=== PATIENT | male | born 2000 | race African-American/Black ===

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

== ENCOUNTER 2020-12-30 16:08 | Inpatient (IN) | payer SELFPAY ==
[2020-12-30] VITALS (13 sets, daily range): BP systolic 166–233; BP diastolic 119–163; PULSE 63–97; RESP 18–24; TEMP 36.8–37.3; O2SAT 100; BMI 33.7; BMI 33.2
--- NOTE | 2020-12-30 17:29 | EKG12_ITS ---
Test Reason : HTN Blood Pressure : / mmHG Vent. Rate : 079 BPM Atrial Rate : 079 BPM P-R Int : 164 ms QRS Dur : 110 ms QT Int : 434 ms P-R-T Axes : 034 -47 151 degrees QTc Int : 497 ms Normal sinus rhythm Left axis deviation ST & T wave abnormality, consider lateral ischemia Prolonged QT Abnormal ECG Confirmed by NATHAN DOW, CHAITANYA ([id number]), offline editor ROSEMARIE AGUIRRE ([id number]) on 01/02/2021 10:23:16 AM Referred By: HAO Confirmed By:CHAITANYA EVANS MD
--- NOTE | 2020-12-30 17:33 | EX.ED.DYSGE1 ---
HPI History of Present Illness Chief Complaint: Hypertension Informant: patient Onset/Context/Timing Onset: - (Patient was diagnosed with hypertension 3 years ago.) Context: Gradual Onset (Presumed since patient has not seen a doctor in 3 years.) Timing: Continuous Quality: Complains of vertex headache that is no different than prior headaches Location: Vertex Current Severity: Severe Maximum Severity: Severe Worsened by: Nothing Relieved by: Nothing Associated Symptoms Associated Symptoms: Nothing Narrative Narrative: Patient is 20-year-old male who was seen at [facility] today. He was administered 0.2 mg of clonidine p.o. at approximately 1515. His pressure at that time was 260/160. He was given a prescription for losartan/hydrochlorothiazide. His blood pressure after the clonidine was 220/156. He is still complaining of a vertex headache. He denies double vision, blurred vision loss of vision. [place] ringing his ears decreased hearing. Denies trouble with speech or swallowing. He denies paresthesia, anesthesia or motor weakness presently. He denies problems with coordination or balance. He denies chest pain or back pain. He denies shortness of breath. He denies nausea or vomiting. He answered all questions with a negative response. Patient states he was prescribed blood pressure medicine and has not taken blood pressure medications in for 3 years. Prior similar symptoms: Yes Recent Illness/Hospitalization: No PFSH [facility] Medical History Hypertension Home Medications losartan-hydrochlorothiazide 1 tab PO DAILY 12/30/20 [History Last Taken Unknown] Allergy/AdvReac Type Severity Reaction Status Date / Time No Known Allergies Allergy Verified 12/30/20 16:09 Social History (Updated 12/30/20 @ 17:[address] Gurvinder Baeza MD) household members: none Smoking Status: Never smoker alcohol intake: never substance use type: does not use ROS ROS ED Constitutional Constitutional ED: Denies chills, fever(s), subjective, sweats or weight loss Eyes Eyes: Denies blurry vision, change in vision or diplopia ENT ENT ED: Denies ear pain, rhinorrhea or sore throat Cardiovascular Cardiovascular: Denies chest pain, orthopnea, palpitations or racing heartbeat Respiratory/Chest Respiratory/Chest: Denies cough, dyspnea, orthopnea or sputum Gastrointestinal Gastrointestinal: Denies abdominal pain, diarrhea, nausea or vomiting Genitourinary Genitourinary ED: Denies dysuria, hematuria or urinary frequency Musculoskeletal Musculoskeletal: Denies arthralgias, back pain, myalgias or neck pain Integumentary Denies rash Neurologic Neurologic: Reports headache(s); Denies paresthesias or weakness Endocrine Endocrinology: Denies polydipsia, polyphagia or polyuria Allergic/Immunologic Allergic/Immunologic ED: Denies urticaria EXAM Physical Exam Const Vital Signs: 12/30/20 16:09 12/30/20 17:14 12/30/20 18:41 Temperature 98.3 F Temperature Source Temporal Pulse Rate 97 87 83 Respiratory Rate 18 20 H Respiratory Effort Normal Respiratory Pattern Normal Blood Pressure 233/163 H 200/145 H 188/144 H Blood Pressure Mean 186 163 158 Pulse Ox 100 100 Oxygen Delivery Method Room Air 12/30/20 19:04 12/30/20 20:00 12/30/20 20:09 Temperature 98.2 F Temperature Source Temporal Pulse Rate 79 78 73 Respiratory Rate 18 24 H Respiratory Effort Respiratory Pattern Blood Pressure 178/128 H 193/133 H 191/145 H Blood Pressure Mean 144 153 160 Pulse Ox 100 Oxygen Delivery Method 12/30/20 20:11 Temperature Temperature Source Pulse Rate 85 Respiratory Rate 23 H Respiratory Effort Respiratory Pattern Blood Pressure 166/128 H Blood Pressure Mean 140 Pulse Ox Oxygen Delivery Method Positive well nourished, well developed and obese General Appearance ED: well developed and NAD; Negative for cyanotic or diaphoretic Nutritional Appearance: obese HEENT Reports TM's clear and moist mucous membranes trauma and tenderness Tympanic Membrane ED: Yes TM's clear Eyes PERRL and EOMs intact bilaterally General Eye ED: Negative for pale conjunctiva or scleral icterus Neck No no lymphadenopathy, No supple and No no JVD General: Negative for tenderness Chest Wall inspection of chest normal Resp normal respiratory effort and clear to auscultation bilaterally Cardio regular rate, regular rhythm, S1 normal heart sound, S2 normal heart sound and no murmurs GI normal to inspection, nondistended, normoactive bowel sounds and non-tender Palpation: soft Back/Spine no CVA tenderness Cervical Spine: Negative for cervical spine tenderness Thoracic Spine / Upper Back: Negative for thoracic spinal tenderness or paraspinal muscle tenderness Extremity normal to inspection General Extremety ED: Negative for tenderness Neuro oriented x3, CN's II-XII intact bilaterally and no sensory deficits noted Sensorium / Orientation: alert Motor Exam: strength 5/5 throughout Psych mental status grossly normal Skin no rashes or lesions noted and no wounds MDM MDM MDM Narrative Medical decision making narrative: Patient has ocular findings of AV nicking and possibly silver wiring. This would be consistent with longstanding hypertension. This raises concern for endorgan injury. Appropriate blood work was obtained as well as EKG looking for renal injury, proteinuria, LVH etc. Patient was treated with 20 mg of labetalol IV push. Patient has evidence of endorgan injury. He will require admission. Patient's blood pressure decreased significantly with 20 of labetalol IV push. His blood pressure has rise to 199/136. Additional dose of labetalol was ordered. Initial plan was PCU however with his blood pressure being markedly elevated with endorgan injury will admit to stepdown. Lab Data Attestation: I reviewed the patient's lab results. Labs: Laboratory Results - last 24 hr 12/30/20 12/30/20 12/30/20 18:07 18:07 18:15 WBC 7.4 RBC 4.84 Hgb 13.8 Hct 40.5 MCV 83.7 MCH 28.5 MCHC 34.1 RDW Std Deviation 36.9 RDW Coeff of Carlyle 12.2 Plt Count 363 MPV 10.8 Sodium 136 Potassium 2.8 L Chloride 99 Carbon Dioxide 29.0 Anion Gap 8 BUN 26 H Creatinine 3.69 H Estim Creat Clear Calc 31.67 Est GFR (MDRD) Af Amer 27 L Est GFR (MDRD) Non-Af 22 L BUN/Creatinine Ratio 7.0 L Glucose 88 Calcium 8.3 L Urine Color Yellow Urine Clarity Clear Urine pH 6.5 Ur Specific [place] 1.015 Urine Protein 500 H Urine Glucose (UA) Normal Urine Ketones Negative Urine Occult Blood 10 H Urine Nitrite Negative Urine Bilirubin Negative Urine Urobilinogen Normal Ur Leukocyte Esterase Negative Urine RBC 0 SEEN Urine WBC 0 SEEN Ur Squamous Epith Cells 0 SEEN Urine Bacteria 0 SEEN Urine Mucus 0 SEEN EKG Initial EKG: Attestation: I personally reviewed and interpreted this EKG as follows: Interpretation: Sinus Rhythm (Normal sinus rhythm with a rate of 79. [place] to the left. DC interval is 164 ms. QRS duration is prolonged at 110 ms. QT intervals 434 ms with a QTC of 497, which is prolonged. 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
[2020-12-30] MEDS: Labetalol (Prefilled) 20 MG/4 ML IV (18:12)
[2020-12-30] MEDS: 0.9% Normal Saline 1,000 ML 150 ML IV (18:12)
[2020-12-30 18:21] LABS: Bacteria 0 SEEN /hpf (None Seen); Mucous, Urine 0 SEEN /hpf (<or=2+); Red Blood Cells-Urine 0 SEEN /hpf (0-5); Squamous Epithelial Cells - UA 0 SEEN /hpf (0-5); White Blood Cells 0 SEEN /hpf (0-5)
[2020-12-30 19:10] LABS: Hematocrit 40.5 % (40-54); Hemoglobin 13.8 g/dL (13.0-16.5); Mean Corp Hgb Conc 34.1 g/dL (32-36); Mean Corpuscular Hgb 28.5 pg (27.0-32.0); Mean Corpuscular Volume 83.7 fL (80-94); Mean Platelet Vol. 10.8 fl (6.2-12.0); Platelet Count 363 K/mm3 (150-450); RBC Distribution Width CV 12.2 % (11.6-14.6); RBC Distribution Width SD 36.9 fl (35.1-43.9); Red Blood Count 4.84 M/mm3 (4.6-6.2); White Blood Count 7.4 K/mm3 (4.4-11.0)
[2020-12-30 19:13] LABS: Color, Urine Yellow (Yellow); Glucose, Dipstick Normal (Normal); Ketone-Dipstick Negative (Negative); Leukocyte Esterase-Dipstick Negative /ul (Negative); Nitrite-Dipstick Negative (Negative); Occult Blood-Urine 10 /ul (Negative); Protein-Dipstick 500 mg/dl (Negative); Specific Gravity, Urine 1.015 (1.002-1.030); Urine Bilirubin Dipstick Negative (Negative); Urine Clarity Clear (Clear); Urine Urobilinogen Normal (Normal); Urine pH 6.5 (5.0 - 8.0)
[2020-12-30 19:23] LABS: Anion Gap 8 (5-15); BUN 26 mg/dL (7-18); Calcium,Total 8.3 mg/dL (8.5-10.1); Chloride 99 mmol/L (98-107); Creatinine, Serum 3.69 mg/dL (0.70-1.30); EST Glomerular Filtration Rate 22 mL/min (>60); Est Glom Filt Rate - Afr Amer 27 mL/min (>60); Estimated Creatinine Clearance 31.67 ml/min; Glucose 88 mg/dL (74-106); Potassium 2.8 mmol/L (3.5-5.1); Sodium Level 136 mmol/L (136-145)
--- NOTE | 2020-12-30 20:06 | ECHOD_ITS ---
Reason For Study: HTN Procedure This was a 2D Doppler, Color Flow transthoracic echocardiogram. Exam performed portable in patient room. Left Ventricle Normal LV size. Severe concentric left ventricular hypertrophy. Left ventricular systolic function is normal. The estimated ejection fraction is 55 %. Diastolic function is indeterminate. No regional wall motion abnormalities noted. Right Ventricle Normal RV size. Normal systolic function. Atria Normal left atrium. Normal right atrium. No doppler evidence for ASD. Mitral Valve There is no mitral annular calcification. Normal mitral valve. Trivial mitral valve insufficiency. Tricuspid Valve Normal tricuspid valve. Trivial tricuspid valve insufficiency. Unable to estimate RV systolic pressure due to insufficient tricuspid regurgitant envelope. Aortic Valve Trisinus/trileaflet aortic valve. Normal aortic valve. Trivial aortic valve insufficiency. Pulmonic Valve The pulmonic valve is not well visualized. Great Vessels Borderline enlarged aortic root. Pericardium/Pleural No pericardial effusion. MMode/2D Measurements & Calculations LVIDd: 5.3 cm IVSd: 2.1 cm Ao root diam: 3.9 cm LVIDs: 4.2 cm LVPWd: 2.0 cm LA dimension: 4.4 cm FS: 21.9 % LAV(MOD-bp): 71.7 ml LA A4 area: 21.0 cm2 LAV(MOD-bp) Indexed: 32.4 ml/m2 LAV(MOD-sp2): 77.8 ml LAV(MOD-sp4): 64.3 ml Time Measurements MV dec time: 0.20 sec Doppler Measurements & Calculations MV E max jose: 93.1 cm/sec Lat Peak E' Jose: 5.5 cm/sec Med Peak E' Jose: 5.5 cm/sec MV A max jose: 72.7 cm/sec E/E' lat: 16.9 E/E' med: 16.9 MV E/A: 1.3 MV V2 max: 101.1 cm/sec MV P1/2t max jose: 101.9 cm/sec Ao V2 max: 116.3 cm/sec MV max P.1 mmHg MV P1/2t: 61.0 msec Ao max P.4 mmHg MV V2 mean: 62.1 cm/sec MV dec slope: 489.0 cm/sec2 MV mean P.8 mmHg MVA(P1/2t): 3.6 cm2 MV V2 VTI: 22.6 cm LV V1 max: 90.8 cm/sec PA V2 max: 97.3 cm/sec LV V1 max P.3 mmHg ECHO/Echo Complete Interpretation Summary Left ventricular systolic function is normal. The estimated ejection fraction is 55 %. Severe concentric left ventricular hypertrophy. Trivial mitral valve insufficiency. Trivial tricuspid valve insufficiency. Trivial aortic valve insufficiency. Borderline enlarged aortic root. Diastolic function is indeterminate. Ordering Physician: Dontrell Garg Referring Physician: No PCP Noted Performed By: Kuldip Soto RCS
--- NOTE | 2020-12-30 20:07 | NURSING ---
PCU HYPERTENSIVE URGERNCY JASMIN
--- NOTE | 2020-12-30 20:07 | PCM.HP.STD ---
HPI - General General Date of Admission: 12/30/20 Date of Service: 12/30/20 Chief Complaint: Headache HPI Narrative YEHUDA SLAUGHTER, is a 20 M with a significant history of hypertension who presents to emergency department with headache. His headache is located at the parietal occipital area. He rated his headache as 5 out of 10. His headache radiates to his neck. It is relieved with Excedrin. He denies any aggravating factors. Associated with his symptoms is nausea. His headache has been persistent. He was diagnosed with hypertension about 3 years ago and was started on medication which he quit taking 3 years ago. [facility] Medical History Hypertension Home Medications losartan-hydrochlorothiazide 1 tab PO DAILY 12/30/20 [History Last Taken Unknown] Allergy/AdvReac Type Severity Reaction Status Date / Time No Known Allergies Allergy Verified 12/30/20 16:09 Family History Other Diabetes Heart disease no surgical history Social History household members: none Smoking Status: Never smoker alcohol intake: never substance use type: does not use ROS ROS Narrative Constitutional: Denies anorexia and change in weight Eyes: Denies blurry vision, change in eye color, change in vision, discharge from eye(s), double vision, erythema, eye pain, loss of vision or other HEENT: Reports headache. Denies abnormal hearing, dysphagia, ear pain, epistaxis, hearing loss, nasal congestion, nasal discharge, post nasal drip, sinus pressure, sore throat or other Cardiovascular: Denies chest pain. Denies dyspnea on exertion, orthopnea and paroxysmal nocturnal dyspnea Respiratory/Chest: Denies cough, excessive phlegm production, shortness of breath with exertion and wheezing Gastrointestinal: Reports nausea. Denies abdominal pain, coffee ground emesis, constipation, diarrhea, dyspepsia, hematemesis, hematochezia, loose stools, nausea, vomiting or other Genitourinary: Denies burning urination, difficulty urinating, dysuria, hematuria, nocturia, urinary frequency, urinary hesitancy, urinary incontinence, urinary urgency or other Musculoskeletal: Reports neck pain. Denies arthralgias, back pain, joint pain, joint stiffness, joint swelling, myalgias, or other Neurologic: Denies abnormal gait, abnormal speech, confusion, disequilibrium, dizziness, focal weakness, numbness, paresthesias, seizure-like activity, seizures, syncope, tingling, tremor(s) or other Psychiatric: Denies anxiety, depression, homicidal ideation, suicidal ideation or other Endocrinology: Denies change in body appearance, cold intolerance, excessive sweating, heat intolerance, polydipsia, polyuria or other Hematologic/Lymphatic: Denies anemia, easy bleeding, easy bruising, lymphadenopathy or other Integumentary: Denies ulcer on buttocks. Allergic/Immunologic: Denies rhinitis, hives, eczema, asthma or other Vital Signs Vital Signs Vital Signs: 12/30/20 16:09 12/30/20 17:14 12/30/20 18:41 Temperature 98.3 F Temperature Source Temporal Pulse Rate 97 87 83 Respiratory Rate 18 20 H Respiratory Effort Normal Respiratory Pattern Normal Blood Pressure 233/163 H 200/145 H 188/144 H Blood Pressure Mean 186 163 158 Pulse Ox 100 100 Oxygen Delivery Method Room Air 12/30/20 19:04 12/30/20 20:00 Temperature 98.2 F Temperature Source Temporal Pulse Rate 79 78 Respiratory Rate 18 24 H Respiratory Effort Respiratory Pattern Blood Pressure 178/128 H 193/133 H Blood Pressure Mean 144 153 Pulse Ox 100 Oxygen Delivery Method Weight Weight: 103.6 kg Body Mass Index (BMI) 33.7 Physical Exam Narrative Physical exam: General: Well-nourished, well-developed, no acute distress Head: Normocephalic, atraumatic, no tenderness Eyes: PERRLA, EOMI ENT, no trauma, moist mucous membranes, no rhinorrhea Neck: Nontender, full range of motion, no spinal tenderness, deformities, step-off CVS: Regular rate and rhythm Respiratory no acute distress, clear to auscultation bilaterally, chest wall nontender, no wheezing Abdomen: Soft, nontender, nondistended, normal bowel sounds, no masses : Deferred Back: Nontender, no CVA tenderness, no midline spinal tenderness, deformities, step-offs Extremities: Nontender full range of motion, no trauma Skin: Normal color, no trauma, abrasions Neuro: Alert, oriented, cranial nerves II through XII grossly intact. Psychiatry: Normal mood. Normal affect. Not depressed. Not anxious. Results Lab / Micro Data Result Diagrams: 12/30/20 18:07 12/30/20 18:07 Labs: Laboratory Results - last 24 hr 12/30/20 18:07: WBC 7.4, RBC 4.84, Hgb 13.8, Hct 40.5, MCV 83.7, MCH 28.5, MCHC 34.1, RDW Std Deviation 36.9, RDW Coeff of Carlyle 12.2, Plt Count 363, MPV 10.8 12/30/20 18:07: Sodium 136, Potassium 2.8 L, Chloride 99, Carbon Dioxide 29.0, Anion Gap 8, BUN 26 H, Creatinine 3.69 H, Estim Creat Clear Calc 31.67, Est GFR (MDRD) Af Amer 27 L, Est GFR (MDRD) Non-Af 22 L, BUN/Creatinine Ratio 7.0 L, Glucose 88, Calcium 8.3 L 12/30/20 18:15: Urine Color Yellow, Urine Clarity Clear, Urine pH 6.5, Ur Specific [place] 1.015, Urine Protein 500 H, Urine Glucose (UA) Normal, Urine Ketones Negative, Urine Occult Blood 10 H, Urine Nitrite Negative, Urine Bilirubin Negative, Urine Urobilinogen Normal, Ur Leukocyte Esterase Negative, Urine RBC 0 SEEN, Urine WBC 0 SEEN, Ur Squamous Epith Cells 0 SEEN, Urine Bacteria 0 SEEN, Urine Mucus 0 SEEN Assessment & Plan Assessment/Plan (1) Hypertensive emergency: (2) Acute kidney injury: (3) LVH (left ventricular hypertrophy): PLAN: Hypertensive emergency Admit to PCU stepdown telemetry. High systolic blood pressure of 233. Highest diastolic blood pressure of 160. Received labetalol emergency department. Targeted systolic blood pressure 24 hours 165-175. Hydralazine IV as needed and labetalol IV as needed ordered. Will start patient on amlodipine. Home medication patient not taking threes ago was combo of hydrochlorothiazide and losartan. Will not resume at this time secondary to MARGOTH. EKG independently interpreted showed left axis deviation with left ventricular hypertrophy. Like secondary to chronic hypertension. Will check an echocardiogram and renal artery stenosis with renal artery duplex study. Review of labs showed proteinuria likely secondary to chronic hypertension. MARGOTH: Creatinine presentation was 3.69. Review of labs show that his creatinine on 11/01/2017 was 1.37 and on 08/04/2016 was 1.28. Review of community records did not show any other results. BUN is 26. BUN over creatinine is 7. Likely intrinsic renal at this time. We will get ultrasound of urinary bladder and kidneys. Will get urine electrolytes. Gentle IV hydration. Avoid nephrotoxic's. Headache Likely secondary to hypertension Treatment hypertension as above Tylenol as needed. Hypokalemia Replace Check renin and aldosterone activity. Trend BMP. DVT prophylaxis: Low risk. Charges/Coding Visit Charges Inpatient E&M: 19135 Init Hosp L3
[2020-12-30] MEDS: Labetalol 100 MG/20 ML Vial 40 MG IV (20:08)
[2020-12-30 20:52] LABS: Urine Sodium 22 mmol/L (Not Establ.)
--- NOTE | 2020-12-30 20:57 | CM.ED ---
SW Note Referral Source: Case Find Referral Reason: No Primary Care Physician (PCP) SW met with patient. Patient confirmed he had no PCP. SW provided him with handout from [facility] on Physician Directory. SW also provided patient with handout where to go when. Patient voiced no other concerns or issues. SW remains available. Plan: PCP information provided Jael WHITE
--- NOTE | 2020-12-30 22:07 | RDU_ITS ---
Reason For Study: HTN Right Renal Artery Left Renal Artery Right renal artery ostium 93.8/31.6 Left renal artery ostium 67.8/21.1 RSV/EDV. PSV/EDV. Right renal artery proximal Left renal artery proximal PSV/EDV 65.3/29.0 PSV/EDV. 72.7/19.9 . Right renal artery mid 62.7/26.4 Left renal artery mid 65.3/21.1 PSV/EDV. PSV/EDV . Right renal artery distal 52.3/18.6 Left renal artery distal 43.2/13.8 PSV/EDV. PSV/EDV. Right Renal Parenchyma Left Renal Parenchyma Upper Pole Medula 18.4/10.2 Left upper pole medulla 10.6/6.2 PSV/EDV. PSV/EDV . Right upper pole medulla EDR .55 . Left upper pole medulla EDR .58 . Right upper pole medulla R.I. .45 . Left upper pole medulla R.I. .42 . Upper Giorgi Cortx 17.5/9.3 PSV/EDV. UP Cortex 8.9/4.5 PSV/EDV. Right upper pole cortex EDR .53 . Left upper pole cortex EDR .51 . Right upper pole cortex R.I. .47 . Left upper pole cortex R.I. .49 . Right lower Pole medulla 12.1/6.6 Left lower Pole medulla 13.3/6.7 PSV/EDV . PSV/EDV . Right lower pole medulla EDR .55 . Left lower pole medulla EDR .5 . Right lower pole medulla R.I. .45 . Left lower pole medulla R.I. .5 . Lower Pole Cortex 14.8/6.6 PSV/EDV. Lower Pole Cortx 9.5/5.6 PSV/EDV. Right lower pole cortex EDR .44 . Left lower pole cortex EDR .59 . Right lower pole cortex R.I. .56 . Left lower pole cortex R.I. .41 . Right Renal Hilar Left Renal Hilar Right Hilar avg 23.9/9.3 PSV/EDV. LT Hilar avg 19.3/8.9 PSV/EDV . Right hilar acceleration time 30.0 Left hilar acceleration time 40.0 m/sec. m/sec. Right Renal Dimensions Left Renal Dimensions Right kidney size 11.2 cm . Left kidney size 11.2 cm . Right cortical dimension 1.2 cm . Left cortical dimension 1.73 cm . Aorta Proximal abdominal aorta 1.91 x 1.9 cm . Proximal abdominal aorta peak systolic velocity is 135.3 cm/sec . Distal abdominal aorta 1.74 x 1.76 cm . Distal abdominal aorta peak systolic velocity is 75.6 cm/sec . Normal renal veins bilat. VL/Renal Artery Duplex Ultrasound Interpretation Summary Bilateral renal arteries with less than 60% degree of stenosis. Resistive index appears to be normal bilaterally. Bilateral kidneys measuring 11.2 cm. Ordering Physician: Dontrell Garg Performed By: Christian Zavala RVT
--- NOTE | 2020-12-30 22:07 | US_ITS ---
EXAM: US RETROPERITONEAL LIMITED, RENAL : 1999 CLINICAL INDICATION: MARGOTH TECHNIQUE: Limited grayscale and color Doppler sonographic evaluation of the retroperitoneum was performed. This report was created using [employer] report [employer] technology. COMPARISON: None. FINDINGS: RIGHT KIDNEY: 10.7 cm. No hydronephrosis. No shadowing calculus. No perinephric collection is demonstrated. LEFT KIDNEY: 11.2 cm. Tiny 8 mm benign cyst in the left kidney, no follow-up required. No hydronephrosis. No shadowing calculus. No perinephric collection is demonstrated. Bladder: No filling defects or other abnormalities identified. US/Kidney and Bladder IMPRESSION: No acute findings in the retroperitoneum. at 2309 Reported and signed by: Cornelius Hanley MD Electronically Signed: Cornelius Hanley MD at 23:08 EDT Tel , Service support ,
[2020-12-30] MEDS: Potassium Chloride Oral Tablet 20 MEQ 60 MEQ PO (22:53)
[2020-12-30 23:17] LABS: Potassium 2.8 mmol/L (3.5-5.1)
[2020-12-30] MEDS: amLODIPine 10 MG Tablet PO (23:23)
[2020-12-30] MEDS: Acetaminophen 325 MG Tablet 650 MG PO (23:23)
[2020-12-30] MEDS: 0.9% Normal Saline 1,000 ML 100 ML IV (23:23)
--- NOTE | 2020-12-30 23:48 | PCS.PANDOC ---
PANDEMIC DOCUMENTATION INITIATED: Date: 12/23/2020 Time: 190
[2020-12-31] VITALS (16 sets, daily range): BP systolic 141–192; BP diastolic 98–133; PULSE 73–100; RESP 14–19; TEMP 36.4–36.8; O2SAT 96–100
[2020-12-31] MEDS: Labetalol (Prefilled) 20 MG/4 ML 10 MG IV ×2 (00:28→20:19)
[2020-12-31] MEDS: 0.9% Saline Lock 10 ML Syringe IV ×4 (00:32→23:34)
[2020-12-31 07:24] LABS: Potassium 2.8 mmol/L (3.5-5.1)
[2020-12-31] MEDS: 0.9% Normal Saline 1,000 ML 100 ML IV (08:22)
[2020-12-31] MEDS: amLODIPine 10 MG Tablet PO (08:50)
[2020-12-31] MEDS: Potassium Chloride Oral Tablet 20 MEQ 40 MEQ PO ×2 (08:51→16:46)
--- NOTE | 2020-12-31 10:50 | PCM.DC ---
Discharge Instructions Diet Discharge Diet: No restrictions Activity Discharge Activity: Return to Normal Activity Weight Bearing Status: Weight bearing as tolerated Dressing / Incision Call your doctor if you observe: Fever of 101 or Higher, Numbness or Tingling, Shortness of breath, Dizziness, Chest pain, Increased palpitations (irregular heartbeat) and Calf discomfort Follow Up Care Please Follow Up With: Primary care provider When: Within the next two weeks. Test Results: Test results from this visit will be discussed in further detail at your follow-up appointment, if applicable. Discharge Plan Admission Admit Date/Time: 12/30/20 20:06 Primary Reason for Your Visit: High blood pressure Attending Provider: Sebastien Cisneros Primary Care Provider: Care Physician,No Primary Discharge Orders/Prescriptions Prescriptions: New losartan-hydrochlorothiazide 50-12.5 mg tablet 1 tab PO DAILY Qty: 30 RF: 0 Discontinued losartan-hydrochlorothiazide 50-12.5 mg Tablet 1 tab PO DAILY RF: 0 Referrals / Follow Up: Johana Mccrary MD [STAFF PHYSICIAN] - Within 2 Weeks (Establish care with primary care provider ) Disposition Disposition (needs filled in before D/C Order can be placed): Home, Self Care
--- NOTE | 2020-12-31 11:05 | CASEMGMT ---
CARMELINA MCCLURE assessment: Face to Face with patient for initial transition planning/care coordination assessment. CARMELINA MCCLURE introduced self and role at [facility], pt voices understanding and consents to assessment. Pt is lying in bed in no distress. Pt is A/Ox4 and answers all questions appropriately. Care providers, pharmacy, and demographics verified. Presentation: Pt sent from [facility] for hypertension, headache-was given a clonidine Admitting dx: Hypertensive urgency PCP: [facility]thia Harvey-pt also provided PCP list. Specialists: None Preferred Pharmacy: [facility]/MARGARITA Scott Insurance: Self pay-pt provided MARTINEZ resources Prescription Benefit: Self pay-pt provided Rx assist, resources Living Will/HPOA: Pt states does not have LW/HPOA and declines AD info LNOK: Dary Bryson, mother Living Arrangements: Pt states lives alone in apt and states no concerns at home. Pt states is independent with ADL's. Transportation: Pt states drives self and states no transportation concerns. DME/HHC: Pt states no current DME or need for DME. Pt states no hx of HHC or SNF. Pt states no concerns with going home at time of discharge. 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 Pt states does not smoke cigarettes or drink ETOH. Pt states no further concerns/needs. CM to follow for any further discharge planning/needs. Advised pt to ask for CM if any further questions/concerns/needs arise, voices understanding. Pt Goal: Home Plan[place] CARMELINA MCCLURE
--- NOTE | 2020-12-31 11:13 | CASEMGMT ---
BARBY spoke with patient as he is self pay. SW gave him the Medicaid hotline number and told him he should call and apply as he would likely qualify. BARBY also gave him resources for prescription assistance. Sharon RODRIGUEZ
--- NOTE | 2020-12-31 11:33 | PHA.DC.MC ---
Pharmacy Service has performed discharge medication reconciliation and counseling for this patient. 1. AMLODIPINE 10MG PO DAILY The patient's discharge medication list was reviewed for discrepancies and discrepancies were resolved. Home Medications amlodipine 10 mg PO DAILY #30 tab 12/31/20 The patient was counseled on the following discharge medications and changes in medications for homegoing were reviewed. The Reason for Use, instructions for use, and potential side effects were reviewed for all new medications. The patient's questions regarding all of their medications were answered. The patient was able to verbally demonstrate an understanding of their discharge medications.
[2020-12-31 13:32] LABS: Anion Gap 5 (5-15); BUN 25 mg/dL (7-18); BUN/Creat Ratio 7.2 RATIO (10-20); Calcium,Total 8.2 mg/dL (8.5-10.1); Chloride 105 mmol/L (98-107); Creatinine, Serum 3.48 mg/dL (0.70-1.30); EST Glomerular Filtration Rate 24 mL/min (>60); Est Glom Filt Rate - Afr Amer 29 mL/min (>60); Estimated Creatinine Clearance 33.58 ml/min; Glucose 111 mg/dL (74-106); Potassium 3.2 mmol/L (3.5-5.1); Sodium Level 140 mmol/L (136-145)
--- NOTE | 2020-12-31 14:01 | DS.PCM_ITS ---
Providers Date of Admission: 12/30/20 Primary Care Physician: Enriqueta Primary Care Phys Consultations 12/31/20 12:04 Consult: Nephrology Routine Consulting Provider: Sotero Gaspar Reason for Consult: Elevated Creatinine w/ HTN Emergency EMERGENT Consult: No MD Notified: Yes Date Notified: 12/31/20 Time Notified: 12:10 Method of Notification: Answering Service Reason For Visit: HYPERTENSIVE URGENCY Diagnosis Discharge Diagnosis (1) Hypertensive emergency: Status: Acute Code(s): I16.1 - Hypertensive emergency (2) Acute kidney injury: Status: Acute Code(s): N17.9 - Acute kidney failure, unspecified (3) LVH (left ventricular hypertrophy): Status: Acute Code(s): I51.7 - Cardiomegaly Medications at Discharge Home Medications amlodipine 10 mg PO DAILY #30 tab 12/31/20 Hospital Course Procedures Transthoracic echo Summary of Care Provided Minutes Spent on Discharge: 35 Hospital Course: Hypertensive emergency Admit to PCU stepdown telemetry. High systolic blood pressure of 233. Highest diastolic blood pressure of 160. Received labetalol emergency department. Targeted systolic blood pressure 24 hours 165-175. Hydralazine IV as needed and labetalol IV as needed ordered. Will start patient on amlodipine. Home medication patient not taking threes ago was combo of hydrochlorothiazide and losartan. Will not resume at this time secondary to MARGOTH. EKG independently interpreted showed left axis deviation with left ventricular hypertrophy. Like secondary to chronic hypertension. Will check an echocardiogram and renal artery stenosis with renal artery duplex study. Review of labs showed proteinuria likely secondary to chronic hypertension. MARGOTH: Creatinine presentation was 3.69. Review of labs show that his creatinine on 11/01/2017 was 1.37 and on 08/04/2016 was 1.28. Review of community records did not show any other results. BUN is 26. BUN over creatinine is 7. Likely intrinsic renal at this time. We will get ultrasound of urinary bladder and kidneys. Will get urine electrolytes. Gentle IV hydration. Avoid nephrotoxic 's. Headache Likely secondary to hypertension Treatment hypertension as above Tylenol as needed. Hypokalemia Replace Check renin and aldosterone activity. Trend BMP. Physical Exam Narrative Patient is a 20-year-old male comfortably resting in bed, alert and orient x3. Patient denies any development of symptoms since admission. Denies chest pain, shortness of breath, palpitations, hemoptysis, sputum production, fever, chills, N/V/D. Const alert, oriented x3 and no apparent distress HEENT normocephalic, head/scalp atraumatic and hearing grossly normal bilaterally Eyes EOMs intact bilaterally and conjunctivae normal Neck no lymphadenopathy, supple and no JVD Resp normal respiratory effort, no retractions and no use of accessory muscles Cardio regular rate, regular rhythm, no murmurs and no JVD Cardio Narrative: Elevated blood pressure throughout admission. GI normal to inspection, nondistended, normoactive bowel sounds, soft to palpation and non-tender Extremity normal to inspection, full ROM and no clubbing, cyanosis or edema Skin no rashes or lesions noted, no wounds and skin turgor normal Neuro CN's II-XII intact bilaterally Psych affect normal Weight / BMI Weight Weight: 224 lb 13.944 oz Body Mass Index (BMI) 33.2 ABG / Lab / Microbiology Data Result Diagrams: 12/30/20 18:07 12/31/20 12:23 Laboratory: Laboratory Results - last 24 hr 12/30/20 18:07: WBC 7.4, RBC 4.84, Hgb 13.8, Hct 40.5, MCV 83.7, MCH 28.5, MCHC 34.1, RDW Std Deviation 36.9, RDW Coeff of Carlyle 12.2, Plt Count 363, MPV 10.8 12/30/20 18:07: Sodium 136, Potassium 2.8 L, Chloride 99, Carbon Dioxide 29.0, Anion Gap 8, BUN 26 H, Creatinine 3.69 H, Estim Creat Clear Calc 31.67, Est GFR (MDRD) Af Amer 27 L, Est GFR (MDRD) Non-Af 22 L, BUN/Creatinine Ratio 7.0 L, Glucose 88, Calcium 8.3 L 12/30/20 18:15: Urine Color Yellow, Urine Clarity Clear, Urine pH 6.5, Ur Specific [place] 1.015, Urine Protein 500 H, Urine Glucose (UA) Normal, Urine Ketones Negative, Urine Occult Blood 10 H, Urine Nitrite Negative, Urine Bilirubin Negative, Urine Urobilinogen Normal, Ur Leukocyte Esterase Negative, Urine RBC 0 SEEN, Urine WBC 0 SEEN, Ur Squamous Epith Cells 0 SEEN, Urine Bacteria 0 SEEN, Urine Mucus 0 SEEN 12/30/20 18:15: Ur Random Sodium 22, Urine Creatinine 140.00 12/30/20 22:36: Potassium 2.8 L 12/31/20 06:24: Potassium 2.8 L 12/31/20 12:23: Sodium 140, Potassium 3.2 L, Chloride 105, Carbon Dioxide 30.0, Anion Gap 5, BUN 25 H, Creatinine 3.48 H, Estim Creat Clear Calc 33.58, Est GFR (MDRD) Af Amer 29 L, Est GFR (MDRD) Non-Af 24 L, BUN/Creatinine Ratio 7.2 L, Glucose 111 H, Calcium 8.2 L Radiography Diagnostic Testing: Radiology Impression Echocardiogram 12/30/20 20:06 Interpretation Summary Left ventricular systolic function is normal. The estimated ejection fraction is 55 %. Severe concentric left ventricular hypertrophy. Trivial mitral valve insufficiency. Trivial tricuspid valve insufficiency. Trivial aortic valve insufficiency. Borderline enlarged aortic root. Diastolic function is indeterminate. Ordering Physician: Dontrell Garg Referring Physician: No PCP Noted Performed By: Kuldip Soto RCS Renal Ultrasound 12/30/20 22:07 IMPRESSION: No acute findings in the retroperitoneum. at 2309 Reported and signed by: Cornelius Hanley MD Electronically Signed: Cornelius Hanley MD at 23:08 EDT Tel , Service support , D/C Instructions Discharge Diet: No restrictions Weight Bearing Status: Weight bearing as tolerated Call your doctor if you observe: Fever of 101 or Higher, Numbness or Tingling, Shortness of breath, Dizziness, Chest pain, Increased palpitations (irregular heartbeat) and Calf discomfort Please Follow Up With: Primary care provider When: Within the next two weeks. Discharge Plan Admission Admit Date/Time: 12/30/20 20:06 Primary Reason for Your Visit: High blood pressure Attending Provider: Sebastien Cisneros Primary Care Provider: Cynthia Harvey Consulting Providers: Sotero Gaspar Discharge Orders/Prescriptions Prescriptions: New amlodipine 10 mg tablet 10 mg PO DAILY Qty: 30 RF: 0 Discontinued losartan-hydrochlorothiazide 50-12.5 mg Tablet 1 tab PO DAILY RF: 0 Referrals / Follow Up: Johana Mccrary MD [STAFF PHYSICIAN] - Within 2 Weeks (Establish care with primary care provider ) Disposition Disposition (needs filled in before D/C Order can be placed): Home, Self Care
--- NOTE | 2020-12-31 17:36 | PCM.PN.HOSP ---
Documented by User: Bravo GREEN 12/31/20 17:51 Subjective Subjective Patient is a 20-year-old male comfortably resting in bed, alert and orient x3. Patient denies any development of symptoms since admission. Denies chest pain, shortness of breath, palpitations, hemoptysis, sputum production, fever, chills, N/V/D. Objective Data Objective Data Vital Signs: Vital Signs Temp Pulse Resp BP Pulse Ox 97.5 F L 94 18 154/98 H 99 12/31/20 14:38 12/31/20 14:38 12/31/20 14:38 12/31/20 14:38 12/31/20 14:38 Oxygen Delivery Method Room Air Weight: 224 lb 13.944 oz Body Mass Index (BMI) 33.2 Intake & Output: Intake and Output for Last 24 Hours 12/29/20 12/30/20 12/31/20 23:59 23:59 23:59 Intake Total 837.5 / 837.5 1481.66 / 1481.66 Balance 837.5 / 837.5 1481.66 / 1481.66 Lab / Micro Data Result Diagrams: 01/01/21 04:52 01/01/21 04:52 Labs: Laboratory Results - last 24 hr 12/30/20 18:07: WBC 7.4, RBC 4.84, Hgb 13.8, Hct 40.5, MCV 83.7, MCH 28.5, MCHC 34.1, RDW Std Deviation 36.9, RDW Coeff of Carlyle 12.2, Plt Count 363, MPV 10.8 12/30/20 18:07: Sodium 136, Potassium 2.8 L, Chloride 99, Carbon Dioxide 29.0, Anion Gap 8, BUN 26 H, Creatinine 3.69 H, Estim Creat Clear Calc 31.67, Est GFR (MDRD) Af Amer 27 L, Est GFR (MDRD) Non-Af 22 L, BUN/Creatinine Ratio 7.0 L, Glucose 88, Calcium 8.3 L 12/30/20 18:15: Urine Color Yellow, Urine Clarity Clear, Urine pH 6.5, Ur Specific [place] 1.015, Urine Protein 500 H, Urine Glucose (UA) Normal, Urine Ketones Negative, Urine Occult Blood 10 H, Urine Nitrite Negative, Urine Bilirubin Negative, Urine Urobilinogen Normal, Ur Leukocyte Esterase Negative, Urine RBC 0 SEEN, Urine WBC 0 SEEN, Ur Squamous Epith Cells 0 SEEN, Urine Bacteria 0 SEEN, Urine Mucus 0 SEEN 12/30/20 18:15: Ur Random Sodium 22, Urine Creatinine 140.00 12/30/20 22:36: Potassium 2.8 L 12/31/20 06:24: Potassium 2.8 L 12/31/20 12:23: Sodium 140, Potassium 3.2 L, Chloride 105, Carbon Dioxide 30.0, Anion Gap 5, BUN 25 H, Creatinine 3.48 H, Estim Creat Clear Calc 33.58, Est GFR (MDRD) Af Amer 29 L, Est GFR (MDRD) Non-Af 24 L, BUN/Creatinine Ratio 7.2 L, Glucose 111 H, Calcium 8.2 L Radiography Diagnostic Testing: Radiology Impression Echocardiogram 12/30/20 20:06 Interpretation Summary Left ventricular systolic function is normal. The estimated ejection fraction is 55 %. Severe concentric left ventricular hypertrophy. Trivial mitral valve insufficiency. Trivial tricuspid valve insufficiency. Trivial aortic valve insufficiency. Borderline enlarged aortic root. Diastolic function is indeterminate. Ordering Physician: Dontrell Garg Referring Physician: No PCP Noted Performed By: Kuldip Soto RCS Renal Ultrasound 12/30/20 22:07 IMPRESSION: No acute findings in the retroperitoneum. at 2309 Reported and signed by: Cornelius Hanley MD Electronically Signed: Cornelius Hanley MD at 23:08 EDT Tel , Service support , Physical Exam Const alert, oriented x3 and no apparent distress HEENT head/scalp atraumatic and moist oral mucous membranes Head and Scalp: normocephalic Eyes EOMs intact bilaterally and conjunctivae normal Neck no lymphadenopathy, supple and no JVD Resp normal respiratory effort, no retractions, no use of accessory muscles and clear to auscultation bilaterally Cardio regular rate, regular rhythm, no murmurs and no JVD Cardio Narrative: Hypertensive. GI normal to inspection, nondistended, normoactive bowel sounds, soft to palpation and non-tender Extremity normal to inspection, full ROM and no clubbing, cyanosis or edema Skin no rashes or lesions noted, no wounds, skin turgor normal and no jaundice Neuro CN's II-XII intact bilaterally Psych affect normal Assessment & Plan Assessment/Plan (1) Hypertensive emergency: (2) Hypertensive urgency, malignant: (3) Acute kidney injury: PLAN: Day 2 Discharge planning: Patient to discharge home, no home health care needs or additional therapies identified. 1) hypertensive emergency Blood pressure consistently elevated during admission despite initiation of amlodipine. There is evidence of end organ damage with a creatinine of 3.4, urine protein of 500, renin and aldosterone level pending. Renal ultrasound is acute retroperitoneal findings, kidneys are normal size bilaterally. Nephrology was consulted and agreed to see patient. There is concern for glomerulonephritis, patient should continue with oral hydration and if creatinine improves patient will likely be able to be discharged and follow with Dr. Walker as an outpatient. Echocardiogram straits normal LV systolic function, an estimated EF of 55%, severe concentric left ventricular hypertrophy and indeterminate diastolic dysfunction. Plan; remain admitted to PCU, nephrology following, labetalol as needed, hydralazine as needed, continue amlodipine 10 mg p.o. 2) MARGOTH Creatinine currently 3.48, nephrology consulted as above. 3) hypokalemia Currently 3.2. Plan; continue to trend BMP, continue K-Dur. DVT prophylaxis - low risk, not indicated Patient seen by Bravo De La Garza PA-C, under the supervision of Dr. Cisneros. Documented by User: Dr. Sebastien Cisneros MD 01/01/21 10:51 Objective Data Lab / Micro Data Result Diagrams: 01/01/21 04:52 01/01/21 04:52 Assessment & Plan Addt'l Comments This patient was seen in conjunction with Bravo De La Garza PA-C. I have independently interviewed and examined the patient and reviewed pertinent historical, laboratory, and other data. Please refer to Bravo De La Garza PA-C's note for details of this patient's presentation, findings, and recommendations. I have reviewed Bravo De La Garza PA-C's note and concur with documented findings. In brief, patient is a a 20-year-old gentleman with history of hypertension admitted with markedly elevated blood pressure. Patient was also found to have impaired kidney function with creatinine going up from 1.37 on 625 18-3.69 on admission. Patient also had proteinuria. Suspected diagnosis of glomerulonephritis entertained consult placed to nephrology Physical Examination: GENERAL: cooperative HEENT: Atraumatic; EYES; Anicteric, Normal Conjunctiva NECK; supple, normal thyroid, RESPIRATORY: Diminished to auscultation CARDIOVASCULAR: Regular S1 S2, MUSCULOSKELETAL: no muscle waisting NEURO: Awake; no lateralizing signs. SKIN: No Rash PSYCH; Flat affect Assessment: 1. Acute hypertensive emergency?Patient has evidence of endorgan damage (impaired kidney function) 2. Renal failure do suspect some chronicity 3. Suspected glomerulonephritis 4. Obesity with BMI of 34.9 5. Hypokalemia Recommendations: 1. I have discussed the results of my overview and impressions with the patient 2. Options for management were reviewed Charges/Coding Visit Charges OBSV E&M: 67595 Subsequent observation care L3
[2020-12-31 19:24] LABS: Protein, Urine (Random) 189.6 mg/dL (<11.9); Protein:Creat Ratio 2409 mg/g CRE (0-200)
[2020-12-31] MEDS: hydrALAZINE 20 MG/ML Vial 5 MG IV ×2 (22:19→23:34)
--- NOTE | 2020-12-31 23:38 | PCM.CONS.R ---
Assessment & Plan Assessment/Plan (1) Acute kidney injury: (2) Proteinuria: (3) Hypertension: PLAN: Plan: -I suspect that the patient has acute kidney injury on chronic kidney disease. Serum creatinine was already 1.37 mg/dL in January 2018. -It is possible that the patient has nephrosclerosis due to chronic and untreated hypertension. Urine protein to creatinine ratio is 2.4 g/g. -Although there is no other clear evidence of nephrotic syndrome such as edema, the patient is young and will benefit from definitive diagnosis of proteinuric kidney disease. -Although I suspect that the patient has nephrosclerosis, we need to make sure there is no reversible glomerular disease given his young age. -I will arrange for a kidney biopsy tomorrow. -Once the biopsy is done, the patient can follow-up as an outpatient as long as blood pressure is controlled (less than 180/100). -We will help adjust antihypertensives. Eventual goal for blood pressure control in the setting of kidney disease is less than 130/80. Above was discussed with Dr. Cisneros and PETER Morley. HPI Consult Data Date of Consult: 12/31/20 HPI Narrative HPI Narrative: The patient is a 20-year-old man with past history of hypertension which was diagnosed in 2017. The patient was started on ARB and hydrochlorothiazide at that time. However, the patient did not continue the medication or follow-up with physician. The patient presented to the hospital yesterday with headache. He was found to have a blood pressure of 260/160 on presentation. The patient was taking Excedrin for hypertension. The patient denies current headache. There has been no nausea, vomiting or diarrhea. He denies using NSAIDs for headache prior to admission. The patient does admit to seeing gross hematuria 3 weeks ago. There was no urinary frothing. He denies lower urinary tract symptoms or lower extremity edema. Nephrology is asked to see the patient because of elevated creatinine. His serum creatinine was 3.69 mg/dL on 12/30/2020. Repeat serum creatinine today is 3.48 mg/dL. Ultrasound kidney done yesterday shows right kidney measuring 10.7 cm and left kidney measuring 11.2 cm. There was no hydronephrosis. BP is better today on labetalol, amlodipine, and as needed hydralazine. [facility] Medical History Hypertension Home Medications amlodipine 10 mg PO DAILY #30 tab 12/31/20 [Rx Last Taken Unknown] Allergy/AdvReac Type Severity Reaction Status Date / Time No Known Allergies Allergy Verified 12/30/20 16:09 Family History Other Diabetes Heart disease Social History household members: none Smoking Status: Never smoker alcohol intake: never substance use type: does not use ROS ROS Narrative As per HPI. 10 out of 10 review of systems were done and are noncontributory to the HPI. Physical Exam Narrative General: Alert and oriented x3 in no apparent distress. HEENT: Normocephalic, atraumatic. PERRLA, EOMI. Mucous membrane moist without erythema. Hearing is intact. Neck: Supple, no JVD. Heart: Normal S1 and S2. No rubs, murmurs or gallops. Lungs: Clear to auscultation bilaterally. Abdomen: Normal bowel sound, soft, nontender, no guarding or rebound. Extremity: No edema. No clubbing or cyanosis. Neurological: No focal neurologic deficit. Cranial nerve II through XII are grossly intact. Skin: No rash. Skin is warm and dry. Psychiatric: Affect is flat. Lab / Micro Data Result Diagrams: 12/30/20 18:07 12/31/20 12:23 Labs: Laboratory Results - last 24 hr 12/31/20 06:24: Potassium 2.8 L 12/31/20 12:23: Sodium 140, Potassium 3.2 L, Chloride 105, Carbon Dioxide 30.0, Anion Gap 5, BUN 25 H, Creatinine 3.48 H, Estim Creat Clear Calc 33.58, Est GFR (MDRD) Af Amer 29 L, Est GFR (MDRD) Non-Af 24 L, BUN/Creatinine Ratio 7.2 L, Glucose 111 H, Calcium 8.2 L 12/31/20 19:00: U Random Total Protein 189.6 H, Urine Creatinine 78.70, Protein/Creatinin Ratio 2409 H Radiology Impression Echocardiogram 12/30/20 20:06 Interpretation Summary Left ventricular systolic function is normal. The estimated ejection fraction is 55 %. Severe concentric left ventricular hypertrophy. Trivial mitral valve insufficiency. Trivial tricuspid valve insufficiency. Trivial aortic valve insufficiency. Borderline enlarged aortic root. Diastolic function is indeterminate. Ordering Physician: Dontrell Garg Referring Physician: No PCP Noted Performed By: Kuldip Soto RCS
[2021-01-01] VITALS (17 sets, daily range): BP systolic 146–172; BP diastolic 99–125; PULSE 84–103; RESP 14–23; TEMP 36.6–37; O2SAT 95–140; BMI 34.8
--- NOTE | 2021-01-01 | KI_PTH ---
PATIENT: YEHUDA SLAUGHTER LOC: [facility] U#:[id number] AGE/SX: 20/M ROOM: [facility] RE12/30/[address]: Dr. Sebastien Cisneros MD : 2000 BED: 1 DIS: 01/01/2021 SPEC #: [id number] RECD: 01/01/21 09:29 STATUS: ETELVINA RESpencer #: [id number] SVETLANA: 01/01/21 00:[address]: Sotero Gaspar DEPT: SURGICAL PATHOLOGY RECD BY: Tiffani Rosenberg ENTERED: 01/01/21 10:53 SP TYPE: KIDNEY BX OTHR DR: MD Dr. Dontrell Smith MD Dr. Viola Startzman Tissues: Kidney, NOS Procedures: Electron Microscopy (ACH) Fluorescent Antibody (ACH) Sp St Grp II Kidney (ACH) Kidney Biopsy (ACH) Fluorescent antibody (ACH) add'l Comments: @ Ordering doctor for KIDBX edited from to @ by MOSHE at 01/01/21 1239 @ Submitting doctor edited from to @ by MIESHAOD at 01/01/21 1239 HEADER OPERATION: CT-guided right kidney biopsy PRE-OP DIAGNOSIS: MARGOTH on CKD with proteinuria TISSUE SUBMITTED: Right kidney 18-gauge x4 MICROSCOPIC DIAGNOSIS Right kidney, CT-guided biopsies: Glomerulosclerosis, thickened glomerular capillary loops with fold and convolution, moderate interstitial fibrosis, markedly thickened arterioles with foci of hemorrhagic changes and increased complement immunofluorescence in vessels. See comment. COMMENT Correlate clinically with history of hypertension and onset of symptoms. Slides reviewed with Dr. Nicholas who concurs. Histomorphologic findings are supportive of severe hypertensive changes. The presence of marked complement in the vessels correlates with significant endothelial damage in the context of hypertension. Otherwise, the immunofluorescence profile is nonspecific and there is no evidence of immune-mediated glomerulopathy. CLINICAL INFORMATION: Acute kidney injury on chronic kidney disease with proteinuria. 18-gauge with four specimens. Hypertension. Serum creatinine of 1.3 in January 2018. Suspected nephrosclerosis. Poor medication control of hypertension. Blood pressure of 260/160 on presentation. Episode of gross hematuria. Current serum creatinine of 3.6. Severe concentric left ventricular hypertrophy. MICROSCOPIC DESCRIPTION Light microscopy examined with H & E, PAS, Gross silver and trichrome stains yields 53 glomeruli; of which 8 are globally sclerosed. There is evidence of significant glomerular hilar thickening as well as marked thickening of afferent vessels. Focal glomeruli demonstrate ischemic changes. The capillary loops show variable marked basement membrane thickening. There is no evidence of glomerular inflammation, segmental sclerosis or crescent formation. Examination of the interstitium demonstrates focal lymphocytes and occasional lymphoid aggregates. There is variable interstitial fibrosis change seen with trichrome stain; estimated at approximately 35 to 40%. There is similar proportionate tubule atrophy change. Focal tubules show mild dilatation changes. Examination of the tubules demonstrates mild acute tubule injury. The arterioles demonstrate marked thickening with focal near occlusive changes and focal myxoid changes and there are focal vessels demonstrating hemorrhagic endovasculitis changes. Special stain positive controls are reviewed and deemed adequate. IMMUNOFLUORESCENCE: Tissue frozen and submitted for immunofluorescence evaluation yields 7 glomeruli; of which 2 are globally sclerosed. There is background glomerular and cortex signal with IgG and albumin. C3 and C1q show strong signal in the vessels/arterioles. No significant complement signal is seen in the glomeruli. IgM, IgA and fibrin are negative. Positive and negative immunofluorescence controls are reviewed and deemed adequate. ELECTRON MICROSCOPY: Toluidine blue semithin sections yields 2 open glomeruli for evaluation with variable thickened capillary loops. Ultrastructure examination shows thickening of glomerular basement with significant convolution and folding. There are several foci of podocyte foot process flattening and effacement. There are focal podocyte microvillous changes. There is no evidence of membrane or mesangial deposits. There is rare minute protein trapping. Mesangial matrix substance shows mild expansion and focal sclerotic changes. The tubules show mild degeneration changes. GROSS DESCRIPTION The specimen is sent entirely to [facility] for diagnosis. Received in polytransport medium in a conical tube labeled with the patient?s name, medical record number and designation kidney are four cores of broussard renal tissue measuring 1.9 cm, 1.8 cm, 1.7 cm and 1.5 cm in length, each approximately 0.1 cm in width. Glomeruli are seen under the dissecting microscope. The specimen is divided for immunofluorescence, electron microscopy and light microscopy.
[2021-01-01 05:25] LABS: Absolute Lymphocyte Count 1.05 X10^3/uL (0.83-4.51); Absolute Neutrophil Count 6.1 X10^3/uL (2.0-7.7); Basophil# 0.03 X10^3/uL; Basophil% 0.4 % (0-1); Eosinophil# 0.11 X10^3/uL; Eosinophils% 1.4 % (0-5); Hematocrit 38.9 % (40-54); Hemoglobin 13.1 g/dL (13.0-16.5); Lymphocyte # 1.05 X10^3/ul (0.83-4.51); Lymphocyte % 13.7 % (19-41); Mean Corp Hgb Conc 33.7 g/dL (32-36); Mean Corpuscular Hgb 28.4 pg (27.0-32.0); Mean Corpuscular Volume 84.2 fL (80-94); Mean Platelet Vol. 10.3 fl (6.2-12.0); Monocyte# 0.41 X10^3/uL; Monocyte% 5.3 % (0-10); NRBC Flagged by Analyzer 0 % (0-5); Neutrophil # 6.05 X10^3/uL (2.7-7.7); Neutrophil % 78.9 % (47-70); Platelet Count 357 K/mm3 (150-450); RBC Distribution Width CV 12.7 % (11.6-14.6); RBC Distribution Width SD 38.3 fl (35.1-43.9); Red Blood Count 4.62 M/mm3 (4.6-6.2); White Blood Count 7.7 K/mm3 (4.4-11.0)
[2021-01-01 05:35] LABS: International Normalized Ratio 1.1; Prothrombin Time (Protime)PT. 13.2 SECONDS (11.7-14.9)
[2021-01-01 05:36] LABS: Partial Thromboplast Time 27.8 Seconds (24.1-36.2)
[2021-01-01 05:50] LABS: Albumin, Serum 3.1 g/dL (3.2-5.0); Anion Gap 6 (5-15); BUN 23 mg/dL (7-18); BUN/Creat Ratio 6.8 RATIO (10-20); Calcium,Total 8.4 mg/dL (8.5-10.1); Chloride 105 mmol/L (98-107); Creatinine, Serum 3.39 mg/dL (0.70-1.30); EST Glomerular Filtration Rate 24 mL/min (>60); Est Glom Filt Rate - Afr Amer 30 mL/min (>60); Estimated Creatinine Clearance 34.47 ml/min; Glucose 91 mg/dL (74-106); Phosphorus 2.3 mg/dL (2.5-4.9); Potassium 3.2 mmol/L (3.5-5.1); Sodium Level 139 mmol/L (136-145)
--- NOTE | 2021-01-01 07:55 | CT_ITS ---
PROCEDURE: CT GUIDED PERCUTANEOUS KIDNEY BIOPSY. DATE: 01/01/2021. INDICATION: Male, 20 years old. Proteinuria. Acute renal failure. PHYSICIAN: Carlos Fraire M.D. MEDICATIONS: 2 mg of VERSED and 50 mcg of FENTANYL intravenously. Conscious sedation was performed. Conscious sedation was started at 9:06 AM and terminated in 9:18 AM. Patient was independently monitored by the department nurse. ACCESS SITE: Lower pole right kidney NEEDLE: 18-gauge core biopsy needle. SPECIMEN: 4 18-gauge cores EBL: None. COMPLICATIONS: None immediate. RADIATION DOSAGE (If Supplied By Facility): CTDIvol = ( 15 ) mGy, DLP = ( 465.82 ) mGycm. Individualized optimization techniques were utilized. The risks, benefits, and alternatives to the procedure and sedation were explained to the patient. The specific risk of hemorrhage requiring further treatment or intervention was detailed and accepted. Written informed consent was obtained. The patient was placed on the CT table in the prone position. Multiple axial images were obtained from the lung base through the caudal extent of the kidneys. An appropriate entry site was identified and a shaneka made on the skin. The skin overlying the [ right] posterior flank was prepped and draped in sterile fashion. 1% lidocaine was administered subcutaneously for local anesthesia. Initially, a 22 gauge needle was advanced and CT images confirmed good needle position. The 22 gauge needle was then exchanged for an 17 gauge introducer needle which was advanced. Repeat CT images confirmed good needle trajectory and tip position. The introducer needle was then advanced into the periphery of the inferior renal pole, and CT images were again obtained to confirm exact tip location. The inner stylet of the introducer needle was then removed and an 18 gauge coaxial needle was advanced thru the introducer needle and biopsy performed. A total of [ 4] passes were performed and the specimen collected was sent to Pathology for further evaluation. The needle was withdrawn. Hemostasis was achieved with manual compression and a sterile dressing was applied. Repeat CT images of the biopsy area was performed which demonstrated no gross bleeding or hematoma. The patient tolerated the procedure well without immediate complications. The patient was transported to the [floor/recovery area] in stable condition. CT/Biopsy/Inj or Needle Placement IMPRESSION: Successful CT guided percutaneous kidney biopsy. Conscious sedation protocol was followed. Electronically Signed: Carlos Fraire MD at 10:02 EDT , Service support ,
[2021-01-01] MEDS: amLODIPine 10 MG Tablet PO (08:24)
[2021-01-01] MEDS: Carvedilol 12.5 MG Tablet PO (08:24)
[2021-01-01] MEDS: Potassium Chloride Oral Tablet 20 MEQ 40 MEQ PO (08:24)
[2021-01-01] MEDS: Midazolam 2 MG/2 ML Syringe IV (09:00)
[2021-01-01] MEDS: fentaNYL 100 MCG/2 ML Ampul IV (09:04)
[2021-01-01] MEDS: 0.9% Saline Lock 10 ML Syringe IV (09:06)
[2021-01-01] MEDS: Lidocaine 2% (20 ml mdv) 20 ML Vial INFILT (09:10)
--- NOTE | 2021-01-01 10:53 | PCM.DC ---
Discharge Instructions Diet Discharge Diet: No restrictions Activity Discharge Activity: Return to Normal Activity Weight Bearing Status: Weight bearing as tolerated Dressing / Incision Call your doctor if you observe: Fever of 101 or Higher, Numbness or Tingling, Shortness of breath, Dizziness, Chest pain, Increased palpitations (irregular heartbeat) and Calf discomfort Follow Up Care Please Follow Up With: Primary care provider When: Within the next two weeks. Test Results: Test results from this visit will be discussed in further detail at your follow-up appointment, if applicable. Discharge Plan Admission Admit Date/Time: 12/30/20 20:06 Primary Reason for Your Visit: High blood pressure Attending Provider: Sebastien Cisneros Primary Care Provider: Cynthia Harvey Consulting Providers: Sotero Gaspar Discharge Orders/Prescriptions Prescriptions: New amlodipine 10 mg tablet 10 mg PO DAILY Qty: 30 RF: 0 carvedilol [Coreg] 12.5 mg tablet 12.5 mg PO BID Qty: 60 RF: 0 Discontinued losartan-hydrochlorothiazide 50-12.5 mg Tablet 1 tab PO DAILY RF: 0 Referrals / Follow Up: Johana Mccrary MD [STAFF PHYSICIAN] - Within 2 Weeks (Establish care with primary care provider ) Sotero Gaspar MD [STAFF PHYSICIAN] - Within 2 Weeks Disposition Disposition (needs filled in before D/C Order can be placed): Home, Self Care
--- NOTE | 2021-01-01 14:45 | PHA.DC.MC ---
Pharmacy Service has performed discharge medication reconciliation and counseling for this patient. 1. CARVEDILOL 12.5MG PO BID The patient's discharge medication list was reviewed for discrepancies and discrepancies were resolved. Home Medications amlodipine 10 mg PO DAILY #30 tab 12/31/20 carvedilol [Coreg] 12.5 mg PO BID #60 tab 01/01/21 The patient was counseled on the following discharge medications and changes in medications for homegoing were reviewed. The Reason for Use, instructions for use, and potential side effects were reviewed for all new medications. The patient's questions regarding all of their medications were answered. The patient was able to verbally demonstrate an understanding of their discharge medications.
--- NOTE | 2021-01-01 17:56 | PN.RENAL_ITS ---
Subjective Subjective Following for acute kidney injury and hypertension. The patient denies back pain or gross hematuria after the kidney biopsy. He denies chest pain or shortness of breath. There is no nausea, vomiting or lower urinary tract symptoms. Objective Data Objective Data Vital Signs: Vital Signs Temp Pulse Resp BP Pulse Ox 98.6 F 84 14 151/100 H 99 01/01/21 16:46 01/01/21 16:46 01/01/21 16:46 01/01/21 16:46 01/01/21 16:46 Oxygen Delivery Method [3] Room Air Oxygen Delivery Method [2] Room Air Oxygen Delivery Method [1 ( Room Air Initial Baseline)] Oxygen Delivery Method Room Air Weight: 107.048 kg Body Mass Index (BMI) 34.8 Intake & Output: Intake and Output for Last 24 Hours 12/30/20 12/31/20 01/01/21 23:59 23:59 23:59 Intake Total 837.5 / 837.5 1881.66 / 1881.66 430.5 / 430.5 Output Total 800 / 800 Balance 837.5 / 837.5 1881.66 / 1881.66 -369.5 / -369.5 Lab / Micro Data Result Diagrams: 01/01/21 04:52 01/01/21 04:52 Labs: Laboratory Results - last 24 hr 12/31/20 19:00: U Random Total Protein 189.6 H, Urine Creatinine 78.70, Protein/Creatinin Ratio 2409 H 01/01/21 04:52: PT 13.2, INR 1.1, APTT 27.8 01/01/21 04:52: Sodium 139, Potassium 3.2 L, Chloride 105, Carbon Dioxide 28.0, Anion Gap 6, BUN 23 H, Creatinine 3.39 H, Estim Creat Clear Calc 34.47, Est GFR (MDRD) Af Amer 30 L, Est GFR (MDRD) Non-Af 24 L, BUN/Creatinine Ratio 6.8 L, Glucose 91, Calcium 8.4 L, Phosphorus 2.3 L, Albumin 3.1 L 01/01/21 04:52: WBC 7.7, RBC 4.62, Hgb 13.1, Hct 38.9 L, MCV 84.2, MCH 28.4, MCHC 33.7, RDW Std Deviation 38.3, RDW Coeff of Carlyle 12.7, Plt Count 357, MPV 10.3, Immature Gran % (Auto) 0.300, Neut % (Auto) 78.9 H, Lymph % (Auto) 13.7 L, [place] % (Auto) 5.3, Eos % (Auto) 1.4, Baso % (Auto) 0.4, Absolute Neuts (auto) 6.1, Absolute Lymphs (auto) 1.05, Nucleated RBC % 0 Radiography Diagnostic Testing: Radiology Impression Renal Artery Duplex 12/30/20 22:07 Interpretation Summary Bilateral renal arteries with less than 60% degree of stenosis. Resistive index appears to be normal bilaterally. Bilateral kidneys measuring 11.2 cm. Ordering Physician: Dontrell Garg Performed By: Christian Zavala, RVT Biopsy CT 01/01/21 07:55 IMPRESSION: Successful CT guided percutaneous kidney biopsy. Conscious sedation protocol was followed. Electronically Signed: Carlos Fraire MD at 10:02 EDT , Service support , Physical Exam Narrative General: Alert and oriented x3 in no apparent distress. Neck: Supple, no JVD. Heart: Normal S1 and S2. No rubs, murmurs or gallops. Lungs: Clear to auscultation bilaterally. Abdomen: Normal bowel sound, soft, nontender, no guarding or rebound. Extremity: No edema. No clubbing or cyanosis.. Assessment & Plan Assessment/Plan (1) Acute kidney injury: (2) Proteinuria: (3) Hypertension: PLAN: Plan: -I suspect that the patient has acute kidney injury on chronic kidney disease. Serum creatinine was already 1.37 mg/dL in January 2018. -It is possible that the patient has nephrosclerosis due to chronic and untreated hypertension. Urine protein to creatinine ratio is 2.4 g/g. -Although there is no other clear evidence of nephrotic syndrome such as edema, the patient is young and will benefit from definitive diagnosis of proteinuric kidney disease. He underwent a kidney biopsy today. -It will probably take 2 to 3 days before we can get an idea of what preliminary results of the biopsy yes. He can go home in the meantime and follow-up with us in our office in [place]. -Okay to discharge the patient on carvedilol and amlodipine. The patient was instructed to check his blood pressure daily. If the blood pressure is persistently above 180 systolic or above 100 diastolic, he should call us. -Eventual goal for blood pressure control in the setting of kidney disease is less than 130/80. Above was discussed with Dr. Cisneros and PETER Morley.
--- NOTE | 2021-01-01 18:05 | DS.PCM_ITS ---
Documented by User: Bravo GREEN 01/01/21 18:14 Providers Date of Admission: 12/30/20 Primary Care Physician: Dr. Cynthia Harvey Consultations 12/31/20 12:04 Consult: Nephrology Routine Consulting Provider: Sotero Gaspar Reason for Consult: Elevated Creatinine w/ HTN Emergency EMERGENT Consult: No MD Notified: Yes Date Notified: 12/31/20 Time Notified: 12:10 Method of Notification: Answering Service Reason For Visit: HYPERTENSIVE URGENCY Diagnosis Discharge Diagnosis (1) Acute kidney injury: Status: Acute Code(s): N17.9 - Acute kidney failure, unspecified (2) Proteinuria: Status: Acute Code(s): R80.9 - Proteinuria, unspecified (3) Hypertension: Status: Chronic Code(s): I10 - Essential (primary) hypertension Medications at Discharge Home Medications amlodipine 10 mg PO DAILY #30 tab 12/31/20 carvedilol [Coreg] 12.5 mg PO BID #60 tab 01/01/21 Hospital Course Summary of Care Provided Minutes Spent on Discharge: 35 Hospital Course: 1) hypertensive emergency Nephrology consulted due to evidence of protein in the urine. Patient underwent kidney biopsy today, results pending. Possible differential diagnosis includes proteinuric kidney disease, nephrotic syndrome or that the patient's elevated creatinine is due to chronically untreated hypertension. Patient will discharge home with prescription of amlodipine and Coreg. With follow-up with Dr. Walker for definitive evaluation/diagnosis. 2) MARGOTH Creatinine currently 3.3, nephrology consulted as above. 3) hypokalemia Currently 3.2, replaced. Patient seen by Bravo De La Garza PA-C, under the supervision of Dr. Cisneros. Physical Exam Narrative Patient is a 20-year-old male comfortably resting in bed, alert and orient x3. Patient denies any development of symptoms in the past 24 hours. Denies chest pain, shortness of breath, palpitations, hemoptysis, sputum production, fever, chills, N/V/D. Const alert, oriented x3 and no apparent distress HEENT normocephalic, head/scalp atraumatic and hearing grossly normal bilaterally Eyes PERRL, EOMs intact bilaterally and conjunctivae normal Neck no lymphadenopathy, supple and no JVD Resp normal respiratory effort, no retractions, no use of accessory muscles and clear to auscultation bilaterally Cardio regular rate, regular rhythm, no murmurs and no JVD GI normal to inspection, nondistended, normoactive bowel sounds, soft to palpation and non-tender Extremity full ROM and no clubbing, cyanosis or edema Skin no rashes or lesions noted, no wounds and skin turgor normal Neuro CN's II-XII intact bilaterally Psych affect normal Weight / BMI Weight Weight: 236 lb Body Mass Index (BMI) 34.8 ABG / Lab / Microbiology Data Result Diagrams: 01/01/21 04:52 01/01/21 04:52 Laboratory: Laboratory Results - last 24 hr 12/31/20 19:00: U Random Total Protein 189.6 H, Urine Creatinine 78.70, Protein/Creatinin Ratio 2409 H 01/01/21 04:52: PT 13.2, INR 1.1, APTT 27.8 01/01/21 04:52: Sodium 139, Potassium 3.2 L, Chloride 105, Carbon Dioxide 28.0, Anion Gap 6, BUN 23 H, Creatinine 3.39 H, Estim Creat Clear Calc 34.47, Est GFR (MDRD) Af Amer 30 L, Est GFR (MDRD) Non-Af 24 L, BUN/Creatinine Ratio 6.8 L, Glucose 91, Calcium 8.4 L, Phosphorus 2.3 L, Albumin 3.1 L 01/01/21 04:52: WBC 7.7, RBC 4.62, Hgb 13.1, Hct 38.9 L, MCV 84.2, MCH 28.4, MCHC 33.7, RDW Std Deviation 38.3, RDW Coeff of Carlyle 12.7, Plt Count 357, MPV 10.3, Immature Gran % (Auto) 0.300, Neut % (Auto) 78.9 H, Lymph % (Auto) 13.7 L, [place] % (Auto) 5.3, Eos % (Auto) 1.4, Baso % (Auto) 0.4, Absolute Neuts (auto) 6.1, Absolute Lymphs (auto) 1.05, Nucleated RBC % 0 Radiography Diagnostic Testing: Radiology Impression Renal Artery Duplex 12/30/20 22:07 Interpretation Summary Bilateral renal arteries with less than 60% degree of stenosis. Resistive index appears to be normal bilaterally. Bilateral kidneys measuring 11.2 cm. Ordering Physician: Dontrell Garg Performed By: Christian Zavala, RVT Biopsy CT 01/01/21 07:55 IMPRESSION: Successful CT guided percutaneous kidney biopsy. Conscious sedation protocol was followed. Electronically Signed: Carlos Fraire MD at 10:02 EDT , Service support , D/C Instructions Discharge Diet: No restrictions Weight Bearing Status: Weight bearing as tolerated Call your doctor if you observe: Fever of 101 or Higher, Numbness or Tingling, Shortness of breath, Dizziness, Chest pain, Increased palpitations (irregular heartbeat) and Calf discomfort Please Follow Up With: Primary care provider When: Within the next two weeks. Meaningful Use Info Meaningful Use Diagnoses (Choose all that apply): None applicable Discharge Plan Admission Admit Date/Time: 12/30/20 20:06 Primary Reason for Your Visit: High blood pressure Attending Provider: Sebastien Cisneros Primary Care Provider: Cynthia Harvey Consulting Providers: Sotero Gaspar Discharge Orders/Prescriptions Prescriptions: New amlodipine 10 mg tablet 10 mg PO DAILY Qty: 30 RF: 0 carvedilol [Coreg] 12.5 mg tablet 12.5 mg PO BID Qty: 60 RF: 0 Discontinued losartan-hydrochlorothiazide 50-12.5 mg Tablet 1 tab PO DAILY RF: 0 Referrals / Follow Up: Johana Mccrary MD [STAFF PHYSICIAN] - Within 2 Weeks (Establish care with primary care provider ) Sotero Gaspar MD [STAFF PHYSICIAN] - Within 2 Weeks Disposition Disposition (needs filled in before D/C Order can be placed): Home, Self Care Documented by User: Dr. Sebastien Cisneros MD 01/03/21 01:20 Providers Date of Admission: 12/30/20 Reason For Visit: HYPERTENSIVE URGENCY Medications at Discharge Home Medications amlodipine 10 mg PO DAILY #30 tab 12/31/20 carvedilol [Coreg] 12.5 mg PO BID #60 tab 01/01/21 Hospital Course Summary of Care Provided Hospital Course: This patient was seen in conjunction with Bravo De La Garza PA-C. I have independently interviewed and examined the patient and reviewed pertinent historical, laboratory, and other data. Please refer to Bravo De La Garza PA-C's note for details of this patient's presentation, findings, and recommendations. I have reviewed Bravo De La Garza PA-C's note and concur with documented findings. In brief, patient is a a 20-year-old gentleman with history of hypertension admitted with markedly elevated blood pressure. Patient was also found to have impaired kidney function with creatinine going up from 1.37 on 625 18-3.69 on admission. Patient also had proteinuria. Suspected diagnosis of glomerulonephritis entertained consult placed to nephrology Assessment: 1. Acute hypertensive emergency?Patient has evidence of endorgan damage (impaired kidney function) 2. Renal failure do suspect some chronicity 3. Suspected glomerulonephritis 4. Obesity with BMI of 34.9 5. Hypokalemia Hospital course: As documented above ABG / Lab / Microbiology Data Result Diagrams: 01/01/21 04:52 01/01/21 04:52 Discharge Plan Admission Admit Date/Time: 12/30/20 20:06 Primary Reason for Your Visit: High blood pressure Attending Provider: Sebastien Cisneros Primary Care Provider: Cynthia Harvey Consulting Providers: Sotero Gaspar Discharge Orders/Prescriptions Prescriptions: New amlodipine 10 mg tablet 10 mg PO DAILY Qty: 30 RF: 0 carvedilol [Coreg] 12.5 mg tablet 12.5 mg PO BID Qty: 60 RF: 0 Discontinued losartan-hydrochlorothiazide 50-12.5 mg Tablet 1 tab PO DAILY RF: 0 Referrals / Follow Up: Johana Mccrary MD [STAFF PHYSICIAN] - Within 2 Weeks (Establish care with primary care provider ) Sotero Gaspar MD [STAFF PHYSICIAN] - Within 2 Weeks Disposition Disposition (needs filled in before D/C Order can be placed): Home, Self Care Charges/Coding Visit Charges Inpatient E&M: 21291 Disch Hosp Hospital Course Consultations Consultations: Consultations 12/31/20 12:04 Consult: Nephrology Routine Consulting Provider: Sotero Gaspar Reason for Consult: Elevated Creatinine w/ HTN Emergency EMERGENT Consult: No MD Notified: Yes Date Notified: 12/31/20 Time Notified: 12:10 Method of Notification: Answering Service
[2021-01-02 15:20] LABS: ANTINUCLEAR ANTIBODIES DIRECT Negative (Negative)
[2021-01-02 20:08] LABS: Cytoplasmic Ab (C-ANCA) <1:20 titer (Neg:<1:20)
[2021-01-02 22:41] LABS: Perinuclear Ab (P-ANCA) <1:20 titer (Neg:<1:20)
== END 2021-01-01 18:33 | disposition home or self-care (01) | DRG 305 ==
LOC: ED 19:14 → PCU 20:18
PROVIDERS: Internal Medicine Nephrology; Physician Assistant; Admitting Provider Hospitalist; Emergency Provider Emergency Medicine; Visit Provider Internal Medicine
DX: I16.1 Hypertensive emergency (principal); N17.9 Acute kidney failure, unspecified; N05.9 Unspecified nephritic syndrome with unspecified morphologic changes; I11.9 Hypertensive heart disease without heart failure; E87.6 Hypokalemia; R80.9 Proteinuria, unspecified; E66.9 Obesity, unspecified; Z68.34 Body mass index [BMI] 34.0-34.9, adult
CPT/HCPCS: 36415; 76770; 77012; 80048; 80069; 81001; 82088; 82570; 84132; 84156; 84244; 84300; 85025; 85027; 85610; 85730; 86038; 86225; 86235; 86256; 88305; 88313; 88346; 88348; 88350; 93005; 93306; 93975; 97802; 99284; J7030; J7040; A4216

== ENCOUNTER → 2021-01-08 11:11 | Outpatient (CLI) | payer SELFPAY ==
[2021-01-08 11:52] LABS: Anion Gap 6 (5-15); BUN 26 mg/dL (7-18); BUN/Creat Ratio 6.7 RATIO (10-20); Calcium,Total 8.5 mg/dL (8.5-10.1); Chloride 102 mmol/L (98-107); Creatinine, Serum 3.89 mg/dL (0.70-1.30); EST Glomerular Filtration Rate 21 mL/min (>60); Est Glom Filt Rate - Afr Amer 25 mL/min (>60); Glucose 110 mg/dL (74-106); Potassium 3.2 mmol/L (3.5-5.1); Sodium Level 137 mmol/L (136-145)
== END ==
LOC: LAB 11:11
PROVIDERS: Visit Provider Internal Medicine Nephrology
DX: N17.9 Acute kidney failure, unspecified (principal)
CPT/HCPCS: 36415; 80048

== ENCOUNTER → 2021-01-24 11:39 | Outpatient (CLI) | payer SELFPAY ==
[2021-01-24 11:46] LABS: Bacteria 0 SEEN /hpf (None Seen); Mucous, Urine 0 SEEN /hpf (<or=2+); Red Blood Cells-Urine 0 SEEN /hpf (0-5); Squamous Epithelial Cells - UA 0 SEEN /hpf (0-5); White Blood Cells 0 SEEN /hpf (0-5)
[2021-01-24 13:03] LABS: Hematocrit 37.2 % (40-54); Hemoglobin 12.4 g/dL (13.0-16.5); Mean Corp Hgb Conc 33.3 g/dL (32-36); Mean Corpuscular Hgb 28.1 pg (27.0-32.0); Mean Corpuscular Volume 84.4 fL (80-94); Mean Platelet Vol. 10.7 fl (6.2-12.0); Platelet Count 354 K/mm3 (150-450); RBC Distribution Width CV 11.9 % (11.6-14.6); RBC Distribution Width SD 36.4 fl (35.1-43.9); Red Blood Count 4.41 M/mm3 (4.6-6.2); White Blood Count 5.1 K/mm3 (4.4-11.0)
[2021-01-24 13:04] LABS: Color, Urine Yellow (Yellow); Glucose, Dipstick 50 mg/dl (Normal); Ketone-Dipstick Negative (Negative); Leukocyte Esterase-Dipstick Negative /ul (Negative); Nitrite-Dipstick Negative (Negative); Occult Blood-Urine 10 /ul (Negative); Protein-Dipstick 100 mg/dl (Negative); Specific Gravity, Urine 1.015 (1.002-1.030); Urine Bilirubin Dipstick Negative (Negative); Urine Clarity Clear (Clear); Urine Urobilinogen Normal (Normal)
[2021-01-24 13:11] LABS: Protein, Urine (Random) 149.6 mg/dL (<11.9); Protein:Creat Ratio 991 mg/g CRE (0-200)
[2021-01-24 13:22] LABS: PTHIN 222.8 pg/mL (18.4-80.1)
[2021-01-24 13:24] LABS: Anion Gap 5 (5-15); BUN 30 mg/dL (7-18); BUN/Creat Ratio 9.8 RATIO (10-20); Calcium,Total 8.6 mg/dL (8.5-10.1); Chloride 107 mmol/L (98-107); Creatinine, Serum 3.06 mg/dL (0.70-1.30); EST Glomerular Filtration Rate 27 mL/min (>60); Est Glom Filt Rate - Afr Amer 33 mL/min (>60); Glucose 112 mg/dL (74-106); Potassium 3.6 mmol/L (3.5-5.1); Sodium Level 139 mmol/L (136-145)
== END ==
LOC: LAB 11:41
PROVIDERS: PCP Internal Medicine; Referring Provider Nurse Practitioner Adult Health; Visit Provider Nurse Practitioner Adult Health
DX: N17.9 Acute kidney failure, unspecified (principal); R80.9 Proteinuria, unspecified
CPT/HCPCS: 36415; 80048; 81001; 82306; 82570; 83970; 84156; 85027

== ENCOUNTER → 2021-02-28 10:25 | Outpatient (CLI) | payer SELFPAY ==
[2021-02-28 12:34] LABS: Absolute Lymphocyte Count 1.29 X10^3/uL (0.83-4.51); Absolute Neutrophil Count 4.8 X10^3/uL (2.0-7.7); Basophil# 0.04 X10^3/uL; Basophil% 0.6 % (0-1); Eosinophil# 0.07 X10^3/uL; Eosinophils% 1.1 % (0-5); Hematocrit 40.5 % (40-54); Hemoglobin 13.7 g/dL (13.0-16.5); Lymphocyte # 1.29 X10^3/ul (0.83-4.51); Lymphocyte % 19.6 % (19-41); Mean Corp Hgb Conc 33.8 g/dL (32-36); Mean Corpuscular Hgb 27.9 pg (27.0-32.0); Mean Corpuscular Volume 82.5 fL (80-94); Mean Platelet Vol. 10.5 fl (6.2-12.0); Monocyte# 0.38 X10^3/uL; Monocyte% 5.8 % (0-10); NRBC Flagged by Analyzer 0 % (0-5); Neutrophil % 72.7 % (47-70); Platelet Count 325 K/mm3 (150-450); RBC Distribution Width CV 11.6 % (11.6-14.6); RBC Distribution Width SD 34.7 fl (35.1-43.9); Red Blood Count 4.91 M/mm3 (4.6-6.2); White Blood Count 6.6 K/mm3 (4.4-11.0)
[2021-02-28 12:46] LABS: ALB/GLOB Ratio 0.8 RATIO (0.9-2.4); AST(SGOT) 13 U/L (15-37); Alanine Aminotransfer ALT/SGPT 18 U/L (16-61); Albumin, Serum 3.6 g/dL (3.2-5.0); Alkaline Phosphatase 61 U/L (45-117); Anion Gap 5 (5-15); BUN 28 mg/dL (7-18); BUN/Creat Ratio 10.2 RATIO (10-20); Calcium,Total 9.4 mg/dL (8.5-10.1); Chloride 105 mmol/L (98-107); Creatinine, Serum 2.75 mg/dL (0.70-1.30); EST Glomerular Filtration Rate 31 mL/min (>60); Est Glom Filt Rate - Afr Amer 38 mL/min (>60); Globulin 4.5 g/dL (2.2-4.2); Glucose 131 mg/dL (74-106); Potassium 3.8 mmol/L (3.5-5.1); Protein, Total 8.1 g/dL (6.4-8.2); Sodium Level 137 mmol/L (136-145)
== END ==
LOC: BIMLAB 10:25
PROVIDERS: PCP Internal Medicine; Referring Provider Internal Medicine; Visit Provider Internal Medicine
DX: I12.9 Hypertensive chronic kidney disease with stage 1 through stage 4 chronic kidney disease, or unspecified chronic kidney disease (principal); N18.9 Chronic kidney disease, unspecified
CPT/HCPCS: 36415; 80053; 85025

== ENCOUNTER → 2022-02-19 | Outpatient (CLI) | payer OTHER, SELFPAY ==
[2022-02-19 10:19] LABS: Absolute Lymphocyte Count 2.55 X10^3/uL (0.83-4.51); Absolute Neutrophil Count 4.2 X10^3/uL (2.0-7.7); Basophil# 0.04 X10^3/uL; Basophil% 0.5 % (0-1); Eosinophil# 0.35 X10^3/uL; Eosinophils% 4.3 % (0-5); Hematocrit 43.7 % (40-54); Hemoglobin 14.5 g/dL (13.0-16.5); Lymphocyte # 2.55 X10^3/ul (0.83-4.51); Lymphocyte % 31.6 % (19-41); Mean Corp Hgb Conc 33.2 g/dL (32-36); Mean Corpuscular Hgb 28.2 pg (27.0-32.0); Mean Corpuscular Volume 84.9 fL (80-94); Monocyte# 0.91 X10^3/uL; Monocyte% 11.3 % (0-10); NRBC Flagged by Analyzer 0 % (0-5); Neutrophil # 4.22 X10^3/uL (2.7-7.7); Neutrophil % 52.2 % (47-70); Platelet Count 342 K/mm3 (150-450); RBC Distribution Width CV 11.9 % (11.6-14.6); RBC Distribution Width SD 36.8 fl (35.1-43.9); Red Blood Count 5.15 M/mm3 (4.6-6.2); White Blood Count 8.1 K/mm3 (4.4-11.0)
[2022-02-19 11:18] LABS: Microalbumin:Creatinine Ratio 161.5 mg/g CRE (<30 mg/g CRE)
[2022-02-19 11:38] LABS: ALB/GLOB Ratio 0.7 RATIO (0.9-2.4); AST(SGOT) 19 U/L (15-37); Alanine Aminotransfer ALT/SGPT 51 U/L (16-61); Albumin, Serum 3.5 g/dL (3.2-5.0); Alkaline Phosphatase 57 U/L (45-117); Anion Gap 11 (5-15); BUN 41 mg/dL (7-18); BUN/Creat Ratio 14.9 RATIO (10-20); Calcium,Total 9.4 mg/dL (8.5-10.1); Chloride 104 mmol/L (98-107); Creatinine, Serum 2.76 mg/dL (0.70-1.30); EST Glomerular Filtration Rate 31 mL/min (>60); Est Glom Filt Rate - Afr Amer 37 mL/min (>60); Globulin 4.8 g/dL (2.2-4.2); Glucose 98 mg/dL (74-106); Potassium 3.8 mmol/L (3.5-5.1); Protein, Total 8.3 g/dL (6.4-8.2); Sodium Level 138 mmol/L (136-145); Thyroid Stim Hormone (TSH) 4.21 uIU/mL (0.358-3.74)
== END | disposition home or self-care (01) ==
PROVIDERS: Visit Provider Internal Medicine
DX: I10 Essential (primary) hypertension (principal)
CPT/HCPCS: 36415; 80053; 82043; 82570; 84443; 85025

== ENCOUNTER → 2022-04-20 | Outpatient (CLI) | payer OTHER, SELFPAY ==
[2022-04-20 14:11] LABS: Anion Gap 4 (5-15); BUN 23 mg/dL (7-18); BUN/Creat Ratio 10.3 RATIO (10-20); Calcium,Total 9.4 mg/dL (8.5-10.1); Chloride 103 mmol/L (98-107); Creatinine, Serum 2.23 mg/dL (0.70-1.30); EST Glomerular Filtration Rate 39 mL/min (>60); Est Glom Filt Rate - Afr Amer 47 mL/min (>60); Glucose 105 mg/dL (74-106); Potassium 3.7 mmol/L (3.5-5.1); Sodium Level 136 mmol/L (136-145)
== END | disposition home or self-care (01) ==
LOC: LAB 12:56
DX: I10 Essential (primary) hypertension (principal); R94.4 Abnormal results of kidney function studies
CPT/HCPCS: 36415; 80048

== ENCOUNTER 2024-12-09 06:29 | Emergency (ER) | payer OTHER, SELFPAY ==
[2024-12-09 06:29] VITALS: BP 176/93; PULSE 71; RESP 18; TEMP 36.6; O2SAT 100; BMI 38.3
[2024-12-09 06:32] VITALS: BP 173/93; PULSE 73; RESP 18; TEMP 36.6; O2SAT 100
--- NOTE | 2024-12-09 06:37 | EDS_ITS ---
HPI History of Present Illness Chief Complaint: General Illness Informant: patient Narrative Narrative: Presents intermittent with productive cough runny nose since Wednesday. No myalgias no fevers. No dyspnea. No vomiting diarrhea. No loss of taste or smell. Hypertension with stage III kidney disease. He is concerned of COVID. Has had COVID years ago. Prior similar symptoms: Yes [facility] Medical History Obesity (BMI 30-39.9) Hypertensive nephropathy LVH (left ventricular hypertrophy) Acute kidney injury Hypertension Home Medications ?Medication ?Instructions ?Recorded ?Last Taken ?Type clonidine HCl 0.3 mg tablet 0.3 mg PO TID #360 tabs Unknown Rx carvedilol 12.5 mg tablet 12.5 mg PO BID 12/09/24 Unkn own History doxazosin 8 mg tablet 8 mg PO BID 12/09/24 Unknown History ergocalciferol (vitamin D2) 1,250 1,250 mcg PO QWEEK 0 12/09/24 Unknown History
--- NOTE | 2024-12-09 06:37 | EX.ED.DYSGE1 ---
HPI History of Present Illness Chief Complaint: General Illness Informant: patient Narrative Narrative: Presents intermittent with productive cough runny nose since Wednesday. No myalgias no fevers. No dyspnea. No vomiting diarrhea. No loss of taste or smell. Hypertension with stage III kidney disease. He is concerned of COVID. Has had COVID years ago. Prior similar symptoms: Yes PFSH PFS Medical History Obesity (BMI 30-39.9) Hypertensive nephropathy LVH (left ventricular hypertrophy) Acute kidney injury Hypertension Home Medications ?Medication ?Instructions ?Recorded ?Last Taken ?Type clonidine HCl 0.3 mg tablet 0.3 mg PO TID #360 tabs 02/03/21 Unknown Rx carvedilol 12.5 mg tablet 12.5 mg PO BID 12/09/24 Unknown History doxazosin 8 mg tablet 8 mg PO BID 12/09/24 Unknown History ergocalciferol (vitamin D2) 1,250 1,250 mcg PO QWEEK 12/09/24 Unknown History mcg (50,000 unit) capsule (Vitamin D2) losartan 25 mg tablet 25 mg PO DAILY 12/09/24 Unknown History verapamil 240 mg tablet,extended 240 mg PO Q12H 12/09/24 Unknown History release Allergy/AdvReac Type Severity Reaction Status Date / Time shellfish derived Allergy Mild throat Verified 12/09/24 06:30 inflammation, rash Family History Other Diabetes Heart disease Social History household members: none Smoking Status: Never smoker alcohol intake: never substance use type: does not use ROS ROS ED Constitutional Constitutional ED: Denies fever(s) ENT ENT ED: Reports rhinorrhea Cardiovascular Cardiovascular: Denies chest pain Respiratory/Chest Respiratory/Chest: Reports cough Gastrointestinal Gastrointestinal: Denies diarrhea or vomiting Musculoskeletal Musculoskeletal: Denies none Integumentary Denies rash or wounds Neurologic Neurologic: Denies weakness EXAM Physical Exam Const Vital Signs: 12/09/24 06:29 12/09/24 06:29 12/09/24 06:32 Temperature 97.8 F 97.8 F Temperature Source Oral Oral Pulse Rate 71 73 Respiratory Rate 18 18 Respiratory Effort Normal Non-Labored Respiratory Pattern Normal Blood Pressure 176/93 H 173/93 H Blood Pressure Mean 120 119 Pulse Ox 100 100 Oxygen Delivery Method Room Air Room Air Positive well nourished and well developed General Appearance ED: well developed and NAD HEENT Reports moist mucous membranes normocephalic and atraumatic Eyes General Eye ED: Yes normal appearance of both eyes Neck full ROM Chest Wall Chest: Negative for tenderness Resp normal respiratory effort and normal air movement Effort and Inspection: symmetric chest movement; Negative for respiratory distress Cardio regular rate, regular rhythm and no murmurs Peripheral Pulses: pulses 2+ throughout GI normal to inspection, nondistended, normoactive bowel sounds and non-tender Palpation: Negative for guarding or rebound tenderness present Extremity normal to inspection General Extremety ED: Negative for edema or tenderness General Extremity: Negative for edema Neuro oriented x3 and no sensory deficits noted Sensorium / Orientation: awake and alert Skin no rashes or lesions noted and no wounds MDM MDM MDM Narrative Medical decision making narrative: Interventions / MDM: Differential diagnosis: Viral syndrome, CKD, chronic hypertension Diagnosis considered but do not suspect: No clinical pneumonia, no hypertensive emergency symptoms. My EKG interpretation: N/A Imaging independently reviewed and interpreted by myself: N/A External documents reviewed: N/A Test considered but not ordered:N/A ED course: Nontoxic no respiratory distress 100% room air. Blood pressure elevated 173/93. History of hypertension with stage III chronic disease on medications. He is followed by nephrology. No headache chest pain shortness of breath for any concerns of hypertensive emergency symptoms. I discussed viral syndrome. Wants testing for COVID. He declines chest x-ray. COVID flu and RSV negative. Patient reassured. Discussed adjunct therapies help with his cough symptoms including humidifiers vapor rubs, cough lozenges. Outpatient follow-up. All questions were answered. Re-evaluation: stable Disposition discussed with patient/family/significant other: Patient Case discussed with consulting clinician: N/A This note was generated with [employer] dictation software. It may contain incorrect words, spelling, and punctuation that were not noted in checking the note before signing. Discharge Plan Triage Chief Complaint: General Illness ED Provider: Xander Sunshine Dx/Rx/DC Orders Clinical Impression: Viral syndrome, History of hypertension, CKD (chronic kidney disease), stage III Instructions: ED Viral Syndrome (Adult) Prescriptions: No Action clonidine HCl 0.3 mg tablet 0.3 mg PO TID Qty: 360 2RF carvedilol 12.5 mg tablet 12.5 mg PO BID losartan 25 mg tablet 25 mg PO DAILY verapamil 240 mg tablet extended release 240 mg PO Q12H ergocalciferol (vitamin D2) [Vitamin D2] 1,250 mcg (50,000 unit) capsule 1,250 mcg PO QWEEK doxazosin 8 mg tablet 8 mg PO BID Primary Care Provider: Care Physician,No Primary Referrals: Care Physician,No Primary [Primary Care Provider] - Tameka Hernandez DO [[facility]] - 1-2 Weeks Print Language: Chilean
--- OUTSIDE RECORDS SUMMARY | 2024-12-09 06:56 | XMS RPT_ITS | CCD ---
Author Organization [facility] Care Team Providers Care Duplication Specialist Name Role Phone HARDIK, KATRIN A Unavailable Unavailable REFERRED, SELF Unavailable Unavailable HARDIK, KATRIN A Unavailable Unavailable HARDIK, KATRIN A Unavailable Unavailable REFERRED, SELF Unavailable Unavailable HARDIK, KATRIN A Unavailable Unavailable HARDIK, KATRIN A Unavailable Unavailable REFERRED, SELF Unavailable Unavailable HARDIK, KATRIN A Unavailable Unavailable HARDIK, KATRIN A Unavailable Unavailable REFERRED, SELF Unavailable Unavailable HARDIK, KATRIN A Unavailable Unavailable Unavailable Primary Care Provider UnavailBravo Khalil Consulting Unavailable [facility], [facility] Referring Unavailable Medical Center, [facility] Harvey Attending Unavailable Medical Center, [facility] Primary Care Unavailable [facility], [facility] Unavailable rBavo Tinsley Attending Unavailable Unavailable Primary Care Provider UnavailQI Dodson Referring Unavailable LANE, QI L Referring Unavailable MEENAN, KASEY Referring Unavailable LANE, QI L Referring Unavailable LANE, QI L Attending Unavailable LANE, QI L Referring Unavailable LANE, QI L Attending Unavailable LANE, QI L Attending Unavailable KIP CLARK Attending Unavailable LANE, QI L Referring Unavailable MEENAN, KASEY Referring Unavailable LANE, QI L Attending Unavailable Allergies Allergy Classification Reported Allergen(s) Allergy Type Date of Onset Reaction(s) Facility (1 source) SHELLFISH-DERIV ED PRODUCTS; Translations: [SHELLFISH-DERI PRANAV PRODUCTS] Propensity to adverse reactions to drug (disorder) 7 [facility] Repository (3 sources) Shellfish; Translations: [shellfish derived] Allergy to substance 2 throat inflammation, rash [facility] (20 sources) Shellfish; Translations: [SHELLFISH CONTAINING PRODUCTS] Drug Allergy 1 Hives, Shortness of Breath, Swelling, Other: See Comments [facility] Medications Current Medications Medication Drug Class(es) Dates Sig (Normalized) Sig (Original) carvedilol 12.5 mg oral tablet (20 sources) alpha-Adrenergic Naida, beta-Adrenergic Naida Start: 07-27-2023 End: 04-20-2025 take 1 tablet by mouth twice daily carvedilol (COREG) 12.5 mg tablet Take 1 tablet by mouth two times a day. 180 tablet 2 2024 04/20/2025 Active Start: 08-13-2022 End: 03-29-2023 take 1 tablet by mouth twice daily carvedilol (COREG) 12.5 mg tablet Take 1 tablet by mouth two times a day. 180 tablet 1 03/30/2023 Active Start: 07-10-2022 take 1 tablet by wesley th twice daily carvedilol (COREG) 6.25 mg tablet Take 1 tablet by mouth twice daily. 60 tablet 1 07/10/2022 Active Start: 01-01-2021 End: 02-28-2021 take 1 tablet by mouth twice daily at mealtime Carvedilol (Coreg) 12.5 mg tablet Discontinued 12.5 MG PO TWICE A DAY 180 January 21, 2021 8:36am February 28, 2021 10:15am On Hold: Pxt not taking must administer with a meal/food Comment on above: Take 1 tablet by wesley twice daily. TAKE ONE TABLET BY M OUT TWICE A DAY Take 1 tablet by wesley th two times a day. cloNIDine hydrochloride 0.3 mg oral tablet (20 sources) Central alpha-2 Adrenergic Agonist Start: End: take 1 tablet by mouth three times daily cloNIDine HCl (CATAPRES) 0.3 mg tablet Take 1 tablet by mouth three times a day. 270 tablet 3 02/08/2024 Active Start: 02-03-2021 take 1 tablet by wesley th three times daily cloNIDine HCl (CATAPRES) 0.3 mg tablet Take 0.3 mg by mouth three times daily. 0 02/03/2021 Active Comment on above: Take 0.3 mg by mouth three times daily. Take 1 tablet by wesley th three times daily. Take 1 tablet by wesley th three times a day. doxazosin 8 mg oral tablet (20 sources) alpha-Adrenergic Naida Start: 01-17-2024 End: 09-13-2024 take 1 tablet by mouth twice daily doxazosin (CARDURA) 8 mg tablet Take 1 tablet by mouth two times a day. 60 tablet 3 09/13/2024 Active Start: 08-12-2023 End: 01-15-2024 take 1 tablet by mouth twice daily doxazosin (CARDURA) 8 mg tablet Take 1 tablet by mouth two times a day. 60 tablet 3 11/17/2023 01/15/2024 Discontinued Start: 05-13-2023 End: 08-12-2023 take 1 tablet by mouth twice daily doxazosin (CARDURA) 4 mg tablet Take 1 tablet by mouth two times a day. 180 tablet 3 05/13/2023 08/12/2023 Discontinued Start: 03-08-2023 End: 04-19-2023 take 0.5 tablet by mouth twice daily doxazosin (CARDURA) 4 mg tablet Take 0.5 tablets by mouth two times a day. 90 tablet 3 04/19/2023 Active Start: 02-05-2023 End: 03-06-2023 take 0.5 tablet by mouth twice daily doxazosin (CARDURA) 4 mg tablet Take 0.5 tablets by mouth two times a day. 90 tablet 3 02/05/2023 03/06/2023 Discontinued Start: 01-26-2023 End: 02-05-2023 take 1 tablet by mouth twice daily doxazosin (CARDURA) 2 mg tablet Take 1 tablet by mouth twice daily. 180 tablet 3 01/26/2023 02/05/2023 Discontinued Start: 10-29-2022 End: 01-26-2023 take 1 tablet by mouth once daily doxazosin (CARDURA) 2 mg tablet Take 1 tablet by mouth once daily. 180 tablet 3 01/07/2023 01/26/2023 Discontinued Comment on above: Take 1 tablet by wesley th once daily. Take 1 tablet by wesley th twice daily. Take 0.5 tablets by mouth two times a day. Take 1 tablet by wesley th two times a day. ergocalciferol 1.25 mg oral capsule (20 sources) Provitamin D2 Compound Start: 11-28-19 End: 04-19-20 take 1 capsule by mouth every week ergocalciferol 50,000 unit capsule (VITAMIN D2, DRISDOL) Take 1 capsule by mouth one time a week. 12 capsule 04/19/2023 Active Start: 08-10-2022 End: 10-22-2022 take 1 capsule by mouth every week ergocalciferol 50,000 unit capsule (VITAMIN D2, DRISDOL) Take 1 capsule by mouth one time a week. 12 capsule 0 10/22/2022 Active Start: 07-10-2022 End: 08-08-2022 take 1 capsule by mouth every week ergocalciferol 50,000 unit capsule (VITAMIN D2, DRISDOL) Take 1 capsule by mouth one time a week. 12 capsule 0 07/10/2022 08/08/2022 Discontinued Comment on above: Take 1 capsule by mo [facility] one time a week. losartan potassium 25 mg oral tablet (6 sources) Angiotensin 2 Receptor Naida Start: 5 take 1 tablet by mouth once daily losartan (COZAAR) 25 mg tablet Take 1 tablet by mouth once daily. 90 tablet 3 06/02/2024 Active verapamil hydrochloride 240 mg extended release oral tablet (20 sources) Calcium Channel Naida Start: End: 4 take 1 tablet by mouth twice daily verapamil SR (CALAN SR) 240 mg CR tablet Take 1 tablet by mouth two times a day. 180 tablet 3 04/24/2024 Active Start: 10-29-2022 End: 03-29-2023 take 1 tablet by mouth twice daily verapamil SR (CALAN SR) 240 mg CR tablet Take 1 tablet by mouth two times a day. 180 tablet 3 03/30/2023 Active Start: 09-09-2022 End: 04-20-2023 take 1 tablet by mouth twice daily verapamil 120 mg tablet Take 1 tablet by mouth twice daily. 180 tablet 1 10/22/2022 04/20/2023 Active Start: 02-03-2021 take 1 tablet by wesley th twice daily verapamil (CALAN, ISOPTIN) 120 mg tablet Take 120 mg by mouth twice daily. 0 02/03/2021 Active Comment on above: Take 120 mg by mouth twice daily. Take 1 tablet by wesley th twice daily. Take 1 tablet by wesley th two times a day. Completed/Discontinued Medications Medication Drug Class(es) Dates Sig (Normalized) Sig (Original) amLODIPine 10 mg oral tablet (4 sources) Dihydropyridine Calcium Channel Naida Start: 1 End: 1 take 10 mg by mouth once daily Amlodipine Discontinued 10 MG PO DAILY January 21, 2021 8:35am February 03, 2021 10:22am dapagliflozin 10 mg oral tablet (17 sources) Sodium-Glucose Cotransporter 2 Inhibitor Start: 4 End: 5 take 1 tablet by mouth once daily at breakfast dapagliflozin propanediol (FARXIGA) 10 mg tablet Take 1 tablet by mouth daily with breakfast. 90 tablet 3 11/23/2023 07/20/2024 Discontinued empagliflozin 10 mg oral tablet (2 sources) Sodium-Glucose Cotransporter 2 Inhibitor Start: 4 End: 4 take 1 tablet by mouth once daily at breakfast empagliflozin (JARDIANCE) 10 mg tablet Take 1 tablet by mouth daily with breakfast. 90 tablet 3 11/18/2023 11/23/2023 Discontinued hydrALAZINE hydrochloride 50 mg oral tablet (2 sources) Arteriolar Vasodilator Start: 1 End: 1 take 50 mg by mouth three times daily Hydralazine Discontinued 50 MG PO THREE TIMES A DAY January 21, 2021 12:00am February 03, 2021 10:22am hydroCHLOROthiazide 12.5 mg / losartan potassium 50 mg oral tablet (4 sources) Thiazide Diuretic, Angiotensin 2 Receptor Naida Start: 1 End: 1 take 1 tablet by mouth once daily Losartan-Hydrochl orothiazide Discontinued 1 TABLET PO DAILY December 31, 2020 10:53am December 31, 2020 10:53am Problems Active Problems Problem Classification Problem Date Documented Date Episodic/Chronic Chronic kidney disease (9 sources) Chronic kidney disease stage 3B ; Translations: [Stage 3b chronic kidney disease (HCC)] Chronic Chronic kidney disease (2 sources) Chronic kidney disease; Translations: [Stage 3b chronic kidney disease (HCC)] Onset: 05-13-2023 Disorders usually diagnosed in infancy, childhood, or adolescence (20 sources) Attention deficit hyperactivity disorder, predominantly inattentive type; Translations: [Other specified behavioral and emotional disorders with onset usually occurring in childhood and adolescence] Onset: 12-30-2011 04-24-2022 Chronic Essential hypertension (20 sources) Hypertensive disorder; Translations: [Essential (primary) hypertension] Onset: 04-20-2022 04-24-2022 Chronic Essential hypertension (1 source) Essential hypertension; Translations: [Benign hypertension with chronic kidney disease, stage III (HCC)] Onset: 05-13-2023 Hypertension with complications and secondary hypertension (20 sources) Malignant hypertension; Translations: [Hypertensive urgency] Onset: 05-13-2023 01-09-2021 Chronic Nutritional deficiencies (10 sources) Vitamin D deficiency; Translations: [Vitamin D deficiency, unspecified] Onset: 05-13-2023 Chronic Other nutritional; endocrine; and metabolic disorders (2 sources) Body mass index 30+ - obesity; Translations: [Obesity, unspecified] 05-14-2021 Chronic Other nutritional; endocrine; and metabolic disorders (2 sources) Hypophosphatemia; Translations: [Other disorders of phosphorus metabolism] 08-12-2023 Chronic Other nutritional; endocrine; and metabolic disorders (1 source) Other disorders of phosphorus metabolism; Translations: [Hypophosphatemia] Onset: 08-12-2023 Chronic Past or Other Problems Problem Classification Problem Date Documented Da te Episodic/Chronic Abdominal pain (4 sources) Flank pain; Translations: [Unspecified abdominal pain] Onset: 03-16-2024 03-16-2024 Episodic Calculus of urinary tract (14 sources) Kidney stone; Translations: [Calculus of kidney] Onset: 05-01-2024 03-22-2024 Episodic Genitourinary symptoms and ill-defined conditions (20 sources) Proteinuria; Translations: [Proteinuria, unspecified] Onset: 04-24-2022 04-24-2022 Episodic Other nutritional; endocrine; and metabolic disorders (20 sources) Childhood obesity; Translations: [Body mass index (BMI) pediatric, greater than or equal to 95th percentile for age] Onset: 08-04-2016 04-24-2022 Episodic Other screening for suspected conditions (not mental disorders or infectious disease) (20 sources) Renal function tests abnormal; Translations: [Abnormal results of kidney function studies] Onset: 04-20-2022 04-24-2022 Episodic Results Test Name Value Interpretation Reference Range Facility [facility] 07-20-2024 [facility] Office Visit (SALLY ) -------- ORTIZDEBRA CHAMPAGNEKAMLESH Laguna ([id number]) 89 M Date Time Provider Department 07/20/24 11:30 AM QI SHERMAN During your visit today, we recorded the following information about you: Pulse Blood pressure Weight Height 60/minute 135/80 118.4 kg 1.778 m Qi Sherman, COLLIN.LEATHER BELT LOOP CUTTER 07/20/2024 11:40 AM Signed Pt is a 23 yo male here for follow up of CKD stage 3 in the setting of HTN nephrosclerosis-biopsy in [place]2020. HTN: Known high BP 2016. Treated with anti-anxiety medicine. First BP med started in end of 2020. Hospitalized with HTN urgency, discharged on BP medications. Lisinopril/HCTZ stopped due to MARGOTH. He was last seen 03/2024. At that time he felt he had passed a kidney stone-renal US with R kidney stone < 5mm-he has established with urology. 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 PAST MEDICAL HISTORY Diagnosis Date CKD (chronic kidney disease), stage III (HCC) HTN (hypertension) General no fever no weight loss no fatigue no night sweats Head / Neck no metallic or bitter taste Cardiac no chest pain or pressure no palpitations no dizziness no lightheadedness no syncope Vascular no edema Pulmonary no dyspnea on exertion no cough GI no loss of appetite no nausea no emesis no diarrhea no constipation no abdominal pain no decreased urine no pink or red urine no flank pain no groin pain Heme no easy bruising Other no daytime somnolence Creatinine Date Value Ref Range Status 03/03/2024 2.23 (H) 0.73 - 1.22 mg/dL Final 08/12/2023 2.09 (H) 0.73 - 1.22 mg/dL Final 05/13/2023 2.17 (H) 0.73 - 1.22 mg/dL Final Potassium Date Value Ref Range Status 03/03/2024 3.8 3.7 - 5.1 mmol/L Final 08/12/2023 3.9 3.7 - 5.1 mmol/L Final 05/13/2023 4.0 3.7 - 5.1 mmol/L Final Exam General: NAD, alert Lungs: CTA bilaterally Heart: RRR without murmur or rub Extremities: No edema BP - standardized method Pulse 1 BP #1: 135/85 Pulse #1: 59 beats/min 2 BP #2 : 143/78 Pulse #2 : 62 beats/min 3 BP #3 : 126/78 Pulse #3 : 59 beats/min Average Average BP: 135/80 Average Pulse: 60 beats/min Orthostatic vitals Supine Sitting Standing BP cuff location BP cuff location: Left upper arm BP cuff size BP cuff size: large adult Comments for BP values First BP (right) First BP (left) Impression/plan CKD stage 3-proteinuric, in the setting of HTN as noted above as well as past MARGOTH (AJITH associated). Baseline Scr is ~ 2.1-2.3-reviewed egfr and renal preservation as well as low Na diet and importance of BP control. He is not using NSAIDs. On ARB. He lost insurance and has not had SGLT 2 inhibitor. He states he didn't feel well on it. Since he is on ARB will hold off on restarting it. Update labs. UJM-vrrgktvxjr-ge changes Heme-Hgb WNL 08/2023 Vitamin D deficiency-on supplement-update labs Kidney stones-as seen on imaging. Established with urology. Reviewed stone instructions with pt and placed them on AV summary. Litholink. Plan Litholink Labs and urine Follow up 4 months PRETTY Mata Jennifer L, APRN.CNP 07/20/2024 11:31 AM Addendum - 2000mg sodium restriction and reviewed foods that are high in sodium and how to monitor sodium intake. - Increased water intake (2.5-3L/day or 80-100 ounces/day) to include drinking water before bedtime to ensure nighttime urination, and to drink water when he/she wakes up to urinate. - Oxalate restriction and reviewed the list of high oxalate foods (spinach, nuts, rhubarb, chocolate, etc.). Avoid high doses of vitamin C and should avoid drinking large amounts of orange juice, dark tea in high quantities, avoid caffeinated beverages and chocolate - Avoid dark leda that contain phosphoric acid - Preferred juices are lemon/limes (4-6 ounces/day). Cantaloupe may also help to increase citrate in the urine which helps in the prevention of kidney stones - not to restrict calcium intake but should not use calcium supplements. - decrease amount of protein (mainly animal) in diet -Instructions for 24-hour urine collection 1) Keep jug on ice or in fridge while collecting 2) When you wake up the first morning before you start the collection (e.g. 6:59am), urinate into the toilet, not into the jug 3) Start the collection right after you urinate in the morning (e.g. 7:00am). All of your urine goes into the jug. If you forget and go into the toilet, dump out the urine and start the test over the next chance you have. 4) Collect ALL of your urine for 24 hours, no more and no less. If you think you will fill up the jug you were provided before the 24-hour shaneka, you will need another jug. If you stop before the 24-hour period or collect urine for longer than 24 hours, (more content not included)... Normal [facility] 06-21-2024 PAT Telephone (SALLY) -------- YEHUDA SLAUGHTER ([id number]) [birth year]16/[birth year] M Date Time Provider Department 06/21/24 RUTH AUSTIN During your visit today, we recorded the following information about you: Ruth Austin RN 06/21/2024 9:39 AM Signed CKD SPECIALIZED COORDINATION QUICK NOTE Provider Action/FYI Telephone call Patient identified by name and date : No Telephone call placed to pt. My call went to 66. com. Left msg identifying myself AND the reason for my call (to obtain b/p readings since starting Losartan). Requested a return call @ his earliest convenience. Ruth Austin RN Allergies As of Date: 06/21/2024 Noted Allergy Reaction SHELLFISH CONTAINING PRODUCTS 03/10/2011 4 - Hives 12 - Shortness of Breath 7 - Swelling 14 - Other: See Comments Date Reviewed: 05/01/2024 Reviewed by: Kip Clark, COLLIN.LEATHER BELT LOOP CUTTER, DNP - Fully Assessed Reason for Visit: Patient Update [1234] Cmt: HTN Prescriptions as of 06/21/2024 - losartan (COZAAR) 25 mg tablet Take 1 tablet by mouth once daily. - doxazosin (CARDURA) 8 mg tablet Take 1 tablet by mouth two times a day. - verapamil SR (CALAN SR) 240 mg CR tablet Take 1 tablet by mouth two times a day. - cloNIDine HCl (CATAPRES) 0.3 mg tablet Take 1 tablet by mouth three times a day. - dapagliflozin propanediol (FARXIGA) 10 mg tablet Take 1 tablet by mouth daily with breakfast. - carvedilol (COREG) 12.5 mg tablet Take 1 tablet by mouth two times a day. - ergocalciferol 50,000 unit capsule (VITAMIN D2, DRISDOL) Take 1 capsule by mouth one time a week. Problem List As Of Date 06/21/2024 Noted Resolved Abnormal results of kidney function studies [R9*04/20/2022 Attention deficit disorder [F98.8] 12/30/2011 Essential (primary) hypertension [I10] 04/20/2022 BMI (body mass index), pediatric, > 99% for age*08/04/2016 Proteinuria [R80.9] 04/24/2022 Renal calculus, right [N20.0] 05/01/2024 Hypertensive nephrosclerosis [I12.9] 05/01/2024 Encounter Status:Closed by RUTH AUSTIN on 06/21/24 [facility] YEHUDA SLAUGHTER ([id number]) 16/00 M Date Time Provider Department 06/05/24 RUTH AUSTIN During your visit today, we recorded the following information about you: Ruth Austin, CARMELINA 06/05/2024 9:19 AM Signed CKD SPECIALIZED COORDINATION QUICK NOTE Provider Action/FYI Telephone call Patient identified by name and date : Yes Spoke with Yehuda this morning. He informed me that he has not yet started the Losartan. He said that he's not sure if his insurance went through. I looked up the Losartan on [facility] AND informed him of multiple pharmacies that he could get it through for $7.77 - $9.00/month. He told me that he has not been checking his b/p because he's busy AND doesn't have time. I informed him of the seriousness of his high b/p. I also suggested that he check his b/p 1-2 hours after taking his medications. Made arrangements for a call again in 1 wk to obtain the b/p's. CARMELINA Elias Jennifer L, APRN.Ruth Landon, RN Can you call him and enroll him for BP mgmt please Thank you Allergies As of Date: 06/05/2024 Noted Allergy Reaction SHELLFISH CONTAINING PRODUCTS 03/10/2011 4 - Hives 12 - Shortness of Breath 7 - Swelling 14 - Other: See Comments Date Reviewed: 05/01/2024 Reviewed by: Kip Clark APRN.AGNIESZKA LEAL - Fully Assessed Reason for Visit: Patient Update [1234] Cmt: HTN Prescriptions as of 06/05/2024 - losartan (COZAAR) 25 mg tablet Take 1 tablet by mouth once daily. - doxazosin (CARDURA) 8 mg tablet Take 1 tablet by mouth two times a day. - verapamil SR (CALAN SR) 240 mg CR tablet Take 1 tablet by mouth two times a day. - cloNIDine HCl (CATAPRES) 0.3 mg tablet Take 1 tablet by mouth three times a day. - dapagliflozin propanediol (FARXIGA) 10 mg tablet Take 1 tablet by mouth daily with breakfast. - carvedilol (COREG) 12.5 mg tablet Take 1 tablet by mouth two times a day. - ergocalciferol 50,000 unit capsule (VITAMIN D2, DRISDOL) Take 1 capsule by mouth one time a week. Problem List As Of Date 06/05/2024 Noted Resolved Abnormal results of kidney function studies [R9*04/20/2022 Attention deficit disorder [F98.8] 12/30/2011 Essential (primary) hypertension [I10] 04/20/2022 BMI (body mass index), pediatric, > 99% for age*08/04/2016 Proteinuria [R80.9] 04/24/2022 Renal calculus, right [N20.0] 05/01/2024 Hypertensive nephrosclerosis [I12.9] 05/01/2024 Encounter Status:Closed by RUTH AUSTIN on 06/05/24 [facility] CNCOon 05-17-2024 CNCO Letter Text [facility] CNOVon 05-01-2024 CNOV Office Visit (UROLWS ) -------- YEHUDA SLAUGHTER ([id number]) [birth year] M Date Time Provider Department 05/01/24 11:00 AM KIP CLARK During your visit today, we recorded the following information about you: Pulse Respiration Blood pressure Weight 68/minute 16/minute 160/102 118.4 kg Height 1.778 m Kip Clark APRN.CNP, DNP 05/01/2024 11:38 AM Signed UROLOGY HISTORY AND PHYSICAL EXAM SERVICE DATE: 05/01/2024 REFERRING PROVIDER: Qi Sherman [id number] [id number] PCP: No primary care provider on file. Consultation requested by Dr. Qi Sherman [id number] [id number] for an opinion regarding kidney stones and my final recommendations will be communicated back to the requesting physician by way of shared Medical record or letter via US mail. SUBJECTIVE CHIEF COMPLAINT: kidney stones HISTORY OF PRESENT ILLNESS: Mr. Slaughter is a 23 year old male who presents for stone consult. Past med hx: HTN, obesity, Vit D def, CKD stage 3 in the setting of HTN nephrosclerosis Followed by TEO Sherman in Nephrology for his CKD. Passed his first kidney stone last month. Had burning sensation when urinating but did not actually see stone pass. No burning sensation at this time. Passed on his own. Drinks about 48 oz of water per day RBUS completed showing: -Calculus: 3 mm echogenic shadowing nonobstructing lower pole calculus. Additional 4 mm echogenic shadowing nonobstructing midpole calculus. No hydronephrosis Patient currently denies fever, chills, nausea, vomiting, gross hematuria, or renal colic. Feeling well. BP elevated today. He did not take his BP meds this morning. Previous stone procedures: None Personal/Family hx: Stone: None Gout: None DM: Mother ===== PAST MEDICAL HISTORY Diagnosis Date CKD (chronic kidney disease), stage III (HCC) HTN (hypertension) No past surgical history on file. No family history on file. Social History Tobacco Use Smoking status: Never Smokeless tobacco: Never Current Outpatient Medications Medication Sig verapamil SR (CALAN SR) 240 mg CR tablet Take 1 tablet by mouth two times a day. cloNIDine HCl (CATAPRES) 0.3 mg tablet Take 1 tablet by mouth three times a day. doxazosin (CARDURA) 8 mg tablet Take 1 tablet by mouth two times a day. dapagliflozin propanediol (FARXIGA) 10 mg tablet Take 1 tablet by mouth daily with breakfast. carvedilol (COREG) 12.5 mg tablet Take 1 tablet by mouth two times a day. ergocalciferol 50,000 unit capsule (VITAMIN D2, DRISDOL) Take 1 capsule by mouth one time a week. No current facility-administered medications for this visit. ALLERGIES: ALLERGIES Allergen Reactions Shellfish Containin* Hives, Shortness of Breath, Swelling, Other: See Comments LABS: UA: Latest Ref Rng 05/01/2024 GLUCOSE UA (POCT) Negative mg/dL >=1000 ! BILIRUBIN UA (POCT) Negative Negative KETONE UA (POCT) Negative mg/dL Negative SPECIFIC GRAVITY UA (POCT) 1.005 - 1.030 >=1.030 HEMOGLOBIN/BLOOD UA (POCT) Negative Trace-lysed ! PH UA (POCT) 4.5 - 8.0 5.5 PROTEIN UA (POCT) Negative mg/dL 30 ! UROBILINOGEN UA (POCT) Normal E.U./dL 0.2 NITRITE UA (POCT) Negative Negative LEUKOCYTES UA (POCT) Negative Negative COLOR UA (POCT) Yellow CLARITY UA (POCT) Clear Legend: ! Abnormal Specific [place], Ur Date Value Ref Range Status 03/16/2024 1.031 (H) 1.005 - 1.030 Final Glucose, Urine Date Value Ref Range Status 03/16/2024 4+ (A) Trace, Negative Final Bilirubin, Urine Date Value Ref Range Status 03/16/2024 Negative Negative Final Ketones, Urine Date Value Ref Range Status 03/16/2024 Negative Negative, Trace Final Hemoglobin/Blood,Ur Date Value Ref Range Status 03/16/2024 Negative Negative, Trace Final Protein, Urine Date Value Ref Range Status 03/16/2024 1+ (A) Trace, Negative Final Nitrites Date Value Ref Range Status 03/16/2024 Negative Negative Final WBC, Urine Date Value Ref Range Status 03/16/2024 0-5 /HPF 0-5 /HPF Final 24 HOUR URINE: Appointment on 03/16/2024 Component Date Value Ref Range Status Color 03/16/2024 Light Yellow Yellow Final Clarity 03/16/2024 Clear Clear Final Glucose, Urine 03/16/2024 4+ (A) Trace, Negative Final Bilirubin, Urine 03/16/2024 Negative Negative Final Ketones, Urine 03/16/2024 Negative Negative, Trace Final Specific [place], Ur 03/16/2024 1.031 (H) 1.005 - 1.030 Final Hemoglobin/Blood,Ur 03/16/2024 Negative Negative, Trace Final pH, Urine 03/16/2024 6.0 5.0 - 8.0 Final Protein, Urine 03/16/2024 1+ (A) Trace, Negative Final Urobilinogen 03/16/2024 Normal Normal Final Nitrites 03/16/2024 Negative Negative Final Leuk Esterase 03/16/2024 Negative Negative, 25 Shalom/uL Final WBC, Urine 03/16/2024 0-5 /HPF 0-5 /HPF Final RBC, Urine 03/16/2024 0-3 /H (more content not included)... Normal [facility] UA DIP, URINE (POC)on 2023 BILIRUBIN UA (POCT) Negative Negative [facility] CLARITY UA (POCT) Clear [facility] COLOR UA (POCT) Yellow [facility] GLUCOSE UA (POCT) >=1000 Abnormal Negative mg/dL [facility] Hemoglobin Ql (U) Trace-lysed Abnormal Negative [facility] Interpretation and review of laboratory results Abnormal [facility] KETONE UA (POCT) Negative Negative mg/dL [facility] LEUKOCYTES UA (POCT) Negative Negative [facility] NITRITE UA (POCT) Negative Negative [facility] PH UA (POCT) 5.5 4.5 - 8.0 [facility] Protein Ql (U) 30 mg/dL Abnormal Negative [facility] SPECIFIC GRAVITY UA (POCT) >=1.030 1.005 - 1.030 [facility] UROBILINOGEN UA (POCT) 0.2 Erica l E.U./dL [facility] Location:[facility], [address] [facility], [place], [place], [id number] [place] [address] POINT OF CARE [facility] Urinalysis complete panel (U )on 05-01-2024 Bacteria LM.HPF (Urine sed) [#/Area] Negative Normal Negative [facility] Comment on above: Order Comment: Speci men Type: URINE SPECIMENOrdering Facility: [facility] Address: [address] [place] [address] Performed By: #### 2 4356-8 ####[facility] [id number] [place] [address] [place] Bilirubin Ql (U) Negative Normal Negative [facility] Comment on above: Order Comment: Speci men Type: URINE SPECIMENOrdering Facility: [facility] Address: [address] [place] [address] Performed By: #### 2 4356-8 ####[facility] [id number] [place] [address] [place] Clarity (Unsp spec) Clear Normal Clear [facility] Comment on above: Order Comment: Speci men Type: URINE SPECIMENOrdering Facility: [facility] Address: [address] [place] [address] Performed By: #### 2 4356-8 ####[facility] [id number] [place] [address] [place] Color (U) Yellow Normal Yellow [facility] Comment on above: Order Comment: Speci men Type: URINE SPECIMENOrdering Facility: [facility] Address: [address] [place] [address] Performed By: #### 2 4356-8 ####[facility] [id number] [place] [address] [place] Epithelial cells LM.HPF (Urine sed) [#/Area] None Seen Normal [facility] Comment on above: Order Comment: Speci men Type: URINE SPECIMENOrdering Facility: [facility] Address: [address] [place] [address] Performed By: #### 2 4356-8 ####[facility] [id number] [place] [address] [place] Glucose Test strip (U) [Mass/Vol] 3+ Abnormal Negative [facility] Comment on above: Order Comment: Speci men Type: URINE SPECIMENOrdering Facility: [facility] Address: [address] [place] [address] Performed By: #### 2 4356-8 ####[facility] [id number] [place] [address] [place] Hemoglobin Ql (U) Negative Normal Negative [facility] Comment on above: Order Comment: Speci men Type: URINE SPECIMENOrdering Facility: [facility] Address: [address] [place] [address] Performed By: #### 2 4356-8 ####[facility] [id number] [place] [address] [place] Hyaline casts (Urine sed) [#/Area] 0 /[LPF] Normal 0 /LPF [facility] Comment on above: Order Comment: Speci men Type: URINE SPECIMENOrdering Facility: [facility] Address: [address] [place] [address] Performed By: #### 2 4356-8 ####[facility] [id number] [place] [address] [place] Ketones Ql (U) Negative Normal Negative [facility] Comment on above: Order Comment: Speci men Type: URINE SPECIMENOrdering Facility: [facility] Address: [address] [place] [address] Performed By: #### 2 4356-8 ####[facility] [id number] [place] [address] [place] Leukocyte esterase Test strip Ql (U) Negative Normal Negative [facility] Comment on above: Order Comment: Speci men Type: URINE SPECIMENOrdering Facility: [facility] Address: [address] [place] [address] Performed By: #### 2 4356-8 ####[facility] [id number] [place] [address] [place] Nitrite Ql (U) Negative Normal Negative [facility] Comment on above: Order Comment: Speci men Type: URINE SPECIMENOrdering Facility: [facility] Address: [address] [place] [address] Performed By: #### 2 4356-8 ####[facility] LABIA [id number] [place] [address] [place] pH (U) 5.5 [pH] Normal <8.5 [facility] Comment on above: Order Comment: Speci men Type: URINE SPECIMENOrdering Facility: [facility] Address: [address] [place] [address] Performed By: #### 2 4356-8 ####[facility] LABIA [id number] [place] [address] [place] Protein (U) [Mass/Vol] 1+ Abnormal Negative Cl [facility] Comment on above: Order Comment: Speci men Type: URINE SPECIMENOrdering Facility: [facility] Address: [address] [place] [address] Performed By: #### 2 4356-8 ####[facility] LABIA [id number] [place] [address] [place] RBC LM.HPF (Urine sed) [#/Area] 0-2 /HPF Normal 0-2 /HPF [facility] Comment on above: Order Comment: Speci men Type: URINE SPECIMENOrdering Facility: [facility] Address: [address] [place] [address] Performed By: #### 2 4356-8 ####[facility] LABIA [id number] [place] [address] [place] Specific gravity (U) [Rel density] 1.037 High 1.005-1.030 [facility] Comment on above: Order Comment: Speci men Type: URINE SPECIMENOrdering Facility: [facility] Address: [address] [place] [address] Performed By: #### 2 4356-8 ####[facility] LABIA [id number] [place] [address] [place] Urobilinogen Ql (U) 0.2 EU/dL Normal 0.2-1.0 EU/dL [facility] Comment on above: Order Comment: Speci men Type: URINE SPECIMENOrdering Facility: [facility] Address: [address] [place] [address] Performed By: #### 2 4356-8 ####[facility] LABIA [id number] [place] [address] [place] WBC LM.HPF (Urine sed) [#/Area] 0-5 /HPF Normal 0-5 /HPF [facility] Comment on above: Order Comment: Speci men Type: URINE SPECIMENOrdering Facility: [facility] Address: [address] [place] [address] Performed By: #### 2 4356-8 ####[facility] LABIA [id number] [address] OF [place] 03-22-2024 PAT Telephone (MIDMAV) -------- YEHUDA SLAUGHTER ([id number]) 0316/00 M Date Time Provider Department 03/22/24 QI SHERMAN MIDAKV During your visit today, we recorded the following information about you: Brenna Bryson OCCA 03/22/2024 1:07 PM Signed ----- Message from Qi Sherman APRN.[employer] sent at 03/22/2024 11:49 AM EST ----- Mail litholink form Brenna Bryson OCCA 03/22/2024 1:08 PM Signed Litholink form placed in outgoing on 03/22/24 ZAIRE Flores Jennifer L, APRN.[employer] Sheila [facility] Pool Mail litholink form Allergies As of Date: 03/22/2024 Noted Allergy Reaction SHELLFISH CONTAINING PRODUCTS 03/10/2011 4 - Hives 12 - Shortness of Breath 7 - Swelling 14 - Other: See Comments Date Reviewed: 03/16/2024 Reviewed by: Meri Zhu LPN - Fully Assessed Prescriptions as of 03/22/2024 - cloNIDine HCl (CATAPRES) 0.3 mg tablet Take 1 tablet by mouth three times a day. - doxazosin (CARDURA) 8 mg tablet Take 1 tablet by mouth two times a day. - dapagliflozin propanediol (FARXIGA) 10 mg tablet Take 1 tablet by mouth daily with breakfast. - carvedilol (COREG) 12.5 mg tablet Take 1 tablet by mouth two times a day. - verapamil SR (CALAN SR) 240 mg CR tablet Take 1 tablet by mouth two times a day. - ergocalciferol 50,000 unit capsule (VITAMIN D2, DRISDOL) Take 1 capsule by mouth one time a week. Problem List As Of Date 03/22/2024 Noted Resolved Abnormal results of kidney function studies [R9*04/20/2022 Attention deficit disorder [F98.8] 12/30/2011 Essential (primary) hypertension [I10] 04/20/2022 BMI (body mass index), pediatric, > 99% for age*08/04/2016 Proteinuria [R80.9] 04/24/2022 Encounter Status:Closed by BRENNA BRYSON on 03/22/24 Normal [facility] US KIDNEY/BLADDERon 03-20-20 US KIDNEY/BLADDER * * *Final Report* * * DATE OF EXAM: Mar 20 2024 1:31PM [facility] 1055 - KIDNEY/BLADDER / PROCEDURE REASON: Flank pain * * * * Physician Interpretation * * * * EXAMINATION: RENAL ULTRASOUND CLINICAL HISTORY: Flank pain TECHNIQUE: Sonography of the kidneys and urinary bladder was performed. Images were obtained and stored in a permanent archive and interpreted remotely. MQ: UR_1 COMPARISON: None RESULT: Right Kidney: -Renal length: 11.0 cm -Parenchyma: Normal parenchymal echogenicity. Normal parenchymal thickness. -Collecting system: No hydronephrosis. -Calculus: 3 mm echogenic shadowing nonobstructing lower pole calculus. Additional 4 mm echogenic shadowing nonobstructing midpole calculus. -Lesion: None. Left Kidney: -Renal length: 11.6 cm -Parenchyma: Normal parenchymal echogenicity. Normal parenchymal thickness. -Collecting system: No hydronephrosis. -Calculus: No echogenic, shadowing calculus. -Lesion: None. Bladder: Partially distended with prevoid bladder volume of 110 mL. No post void residual. IMPRESSION: 1. Less than 5 mm nonobstructing right nephrolithiasis. 2. No hydronephrosis Renal Medicine Physician: EMELY Transcribe Date/Time: Mar 21 2024 9:21A Dictated by : ELIEL AGUIRRE MD This examination was interpreted and the report reviewed and electronically signed by: ELIEL AGUIRRE MD on Mar 21 2024 9:32AM EST [id number] Normal [facility] CNOVon 03-16-2024 CNOV Office Visit (SALLY ) -------- YEHUDA SLAUGHTER ([id number]) 0316/00 M Date Time Provider Department 03/16/24 11:30 AM QI SHERMAN During your visit today, we recorded the following information about you: Pulse Blood pressure Weight Height 73/minute 153/104 120 kg 1.778 m Kasey Chakraborty PA-C 03/16/2024 11:59 AM Signed [facility] DEPARTMENT OF KIDNEY MEDICINE [facility] SERVICE DATE: 03/16/2024 SERVICE TIME: 9:47 AM HPI: Mr. Slaughter is a 23 year old male who presents with with CKD stage 3 in the setting of HTN nephrosclerosis - biopsy in 2020. States he passed his first kidney stone about a week ago. Had burning sensation when urinating but did not actually see stone pass. No burning sensation at this time. Passed on his own. Drinks about 48 oz of water per day Blood pressure at home: averaging around 130/80 [place] 11/2023 started Farxiga 10mg everyday HTN: Known high BP 2016. Treated with anti-anxiety medicine. First BP med started in end of 2020. Hospitalized with HTN urgency, discharged on BP medications. Lisinopril/HCTZ stopped due to MARGOTH. PAST MEDICAL HISTORY: PAST MEDICAL HISTORY Diagnosis Date CKD (chronic kidney disease), stage III (HCC) HTN (hypertension) PAST SURGICAL HISTORY: No past surgical history on file. FAMILY HISTORY: No family history on file. SOCIAL HISTORY: Social History Tobacco Use Smoking status: Never Smokeless tobacco: Never MEDICATIONS: cloNIDine HCl (CATAPRES) 0.3 mg tablet Take 1 tablet by mouth three times a day. doxazosin (CARDURA) 8 mg tablet Take 1 tablet by mouth two times a day. dapagliflozin propanediol (FARXIGA) 10 mg tablet Take 1 tablet by mouth daily with breakfast. carvedilol (COREG) 12.5 mg tablet Take 1 tablet by mouth two times a day. verapamil SR (CALAN SR) 240 mg CR tablet Take 1 tablet by mouth two times a day. ergocalciferol 50,000 unit capsule (VITAMIN D2, DRISDOL) Take 1 capsule by mouth one time a week. ALLERGIES: ALLERGIES Allergen Reactions Shellfish Containin* Hives, Shortness of Breath, Swelling, Other: See Comments REVIEW OF SYSTEMS: Constitutional: No fever and No chills Cardiovascular: No orthopnea Respiratory: No cough and No dyspnea Gastrointestinal: +diarrhea Genitourinary: No frequency, No pink or red urine, No flank pain, and No dysuria Musculoskeletal: No complaints Skin: No rash Neurological: No headache PHYSICAL EXAM: There were no vitals taken for this visit. @BPTRU@ Constitutional: No acute distress, Responsive, Normal habitus, and Well-nourished Cardiovascular:No peripheral edema Regular rate and ryhthm, normal S1 and S2, no murmurs, rubs, or gallops Respiratory: Normal respiratory effort. Lungs clear bilaterally. Abdomen:Soft, non-tender, non-distended. Normal bowel sounds. No hepatosplenomegaly. No flank pain BP - standardized method Pulse 1 BP #1: 153/106 Pulse #1: 72 beats/min 2 BP #2 : 154/102 Pulse #2 : 73 beats/min 3 BP #3 : 153/103 Pulse #3 : 74 beats/min Average Average BP: 153/104 Average Pulse: 73 beats/min Orthostatic vitals Supine Sitting Standing BP cuff location BP cuff location: Left upper arm BP cuff size BP cuff size: large adult Comments for BP values First BP (right) First BP (left) DATA: Diagnostic tests reviewed for today's visit: Latest Ref Rng 05/13/2023 08/12/2023 03/03/2024 CKD LAB FLOWSHEET EGFR, All Other >=60 mL/min/1.73m? 43 (L) 45 (L) 41 (L) Creatinine 0.73 - 1.22 mg/dL 2.17 (H) 2.09 (H) 2.23 (H) BUN 9 - 24 mg/dL 24 25 (H) 20 Sodium 136 - 144 mmol/L 140 138 139 Potassium 3.7 - 5.1 mmol/L 4.0 3.9 3.8 Chloride 98 - 107 mmol/L 102 101 99 CO2 22 - 30 mmol/L 27 28 28 Glucose 74 - 99 mg/dL 186 (H) 121 (H) 98 Calcium 8.5 - 10.2 mg/dL 9.3 9.7 9.7 Phosphorus 2.7 - 4.8 mg/dL 1.3 (L) 2.3 (L) 3.6 Albumin 3.9 - 4.9 g/dL 4.2 4.1 4.3 WBC 3.70 - 11.00 k/uL 6.47 7.46 HGB 13.0 - 17.0 g/dL 15.3 15.2 PLT 150 - 400 k/uL 269 312 Vitamin D25 Hydroxy 31.0 - 80.0 ng/mL 21.8 (L) PTH, Intact 15 - 65 pg/mL 54 Protein Urine Random 0 - 20 mg/dL 72 (H) 55 (H) Creatinine Urine Random 20.0 - 300.0 mg/dL 321.6 (H) 252.2 ASSESSMENT: 23 year old male who presents with proteinuric CKD Stage 3 1. CKD stage 3 in the setting of HTN with past MARGOTH. sCr at 2.23 baseline around 2.1-2.3. On Farxiga 10mg 2. HTN - on carvedilol, clonidine, doxazosin, and verapamil. Uncontrolled in office. Better controlled at home. 130s/80s. Missed night time meds last night. Stressed blood pressure control for kidney protection. 4. Vitamin D deficiency - on vitamin D supplement 5. Heme - Hgb within normal limits 6. Flank pain - left sided. Now resolved. Check renal US rule out stone PLAN: Advised low salt diet and importance of HTN control Continue home blood pressures. Call for blood pressures greater than 135 systolic (more content not included)... Normal [facility] PROTEIN / CREATININE RATIOon 03-16-2024 Protein/Creatinine (U) [Mass ratio] 0.28 mg/mg High NINF - 0.15 mg/mg [facility] Comment on above: Adult Proteinuria Ca tegories: <0.15 mg/mg is considered normal to mildly increased 0.15 - 0.50 mg/mg is considered moderately increased >0.50 mg/mg is considered severely increased KDIGO. (2013). KDIGO 2012 Clinical Practice Guideline for the Evaluation and Management of Chronic Kidney Disease. Official Journal of the International Society of Nephrology, 3(1), 1-150. Prot/Creat Uron 03-16-2024 Protein/Creatinine (U) [Mass ratio] 0.28 mg/mg High <0.15 [facility] Comment on above: Order Comment: Speci men Type: URINE SPECIMEN Ordering Facility: [facility] Address: [address] [place] [address] Result Comment: Adul t Proteinuria Categories: <0.15 mg/mg is considered normal to mildly increased 0.15 - 0.50 mg/mg is considered moderately increased >0.50 mg/mg is considered severely increased KDIGO. (2013). KDIGO 2012 Clinical Practice Guideline for the Evaluation and Management of Chronic Kidney Disease. Official Journal of the International Society of Nephrology, 3(1), 1-150. Performed By: #### 2 890-2 #### [facility] CLIA [id number] [place] [address] [place] Protein/Creatinine (U) [Mass ratio]on 03-16-2024 Creatinine (U) [Mass/Vol] 148.4 mg/dL 20.0 - 300.0 mg/dL [facility] Interpretation and review of laboratory results Abnormal [facility] Protein (U) [Mass/Vol] 42 mg/dL High 0 - 20 mg/dL [facility] Creatinine (U) [Mass/Vol] 148.4 mg/dL Normal 20.0-300.0 [facility] Comment on above: Order Comment: Speci men Type: URINE SPECIMEN Ordering Facility: [facility] Address: [address] [place] [address] Performed By: #### 2 890-2 #### [facility] CLIA [id number] OF [facility] Protein (U) [Mass/Vol] 42 mg/dL High 0-20 [facility] Comment on above: Order Comment: Speci men Type: URINE SPECIMEN Ordering Facility: [facility] Address: [address] [place] [address] Performed By: #### 2 890-2 #### [facility] CLIA [id number] [place] OF [facility] Urinalysis complete panel (U )on 03-16-2024 Bilirubin Ql (U) Negative Negative [facility] Clarity (Unsp spec) Clear Clear [facility] Color (U) Light Yellow Yellow [facility] Glucose Test strip (U) [Mass/Vol] 4+ Abnormal Trace, Negative [facility] Hemoglobin Ql (U) Negative Negative, Trace [facility] Interpretation and review of laboratory results Abnormal [facility] Ketones Ql (U) Negative Negative, Trace [facility] Leukocyte esterase Test strip Ql (U) Negative Negative, 25 Shalom/uL [facility] Nitrite Ql (U) Negative Negative [facility] pH (U) 6.0 [pH] 5.0 - 8.0 [facility] Protein (U) [Mass/Vol] 1+ Abnormal Trace , Negative [facility] RBC LM.HPF (Urine sed) [#/Area] 0-3 /HPF 0-3 /HPF [facility] Specific gravity (U) [Rel density] 1.031 High 1.005 - 1.030 [facility] Urobilinogen Ql (U) Normal Normal [facility] WBC LM.HPF (Urine sed) [#/Area] 0-5 /HPF 0-5 /HPF [facility] Bilirubin Ql (U) Negative Normal Negative [facility] Comment on above: Order Comment: Speci men Type: URINE SPECIMEN Ordering Facility: [facility] Address: [address] [place] [address] Performed By: #### 2 4356-8 #### [facility] CLIA [id number] [address] [place] [address] [place] Clarity (Unsp spec) Clear Normal Clear [facility] Comment on above: Order Comment: Speci men Type: URINE SPECIMEN Ordering Facility: [facility] Address: [address] [place] [address] Performed By: #### 2 4356-8 #### [facility] CLIA [id number] [address] [place] [address] [place] Color (U) Light Yellow Normal Yellow [facility] Comment on above: Order Comment: Speci men Type: URINE SPECIMEN Ordering Facility: [facility] Address: [address] [place] [address] Performed By: #### 2 4356-8 #### [facility] CLIA [id number] [address] [place] [address] [place] Glucose Test strip (U) [Mass/Vol] 4+ Abnormal Trace, Negative [facility] Comment on above: Order Comment: Speci men Type: URINE SPECIMEN Ordering Facility: [facility] Address: [address] [place] [address] Performed By: #### 2 4356-8 #### [facility] CLIA [id number] [address] [place] [address] [place] Hemoglobin Ql (U) Negative Normal Negative, Trace [facility] Comment on above: Order Comment: Speci men Type: URINE SPECIMEN Ordering Facility: [facility] Address: [address] [place] [address] Performed By: #### 2 4356-8 #### [facility] CLIA [id number] [address] [place] [address] [place] Ketones Ql (U) Negative Normal Negative, Trace [facility] Comment on above: Order Comment: Speci men Type: URINE SPECIMEN Ordering Facility: [facility] Address: [address] [place] [address] Performed By: #### 2 4356-8 #### [facility] CLIA [id number] [address] [place] [address] [place] Leukocyte esterase Test strip Ql (U) Negative Normal Negative, 25 Shalom/uL [facility] Comment on above: Order Comment: Speci men Type: URINE SPECIMEN Ordering Facility: [facility] Address: [address] [place] [address] Performed By: #### 2 4356-8 #### [facility] CLIA [id number] [address] [place] [address] [place] Nitrite Ql (U) Negative Normal Negative [facility] Comment on above: Order Comment: Speci men Type: URINE SPECIMEN Ordering Facility: [facility] Address: [address] [place] [address] Performed By: #### 2 4356-8 #### [facility] CLIA [id number] [address] [place] [address] [place] pH (U) 6.0 [pH] Normal 5.0-8.0 [facility] Comment on above: Order Comment: Speci men Type: URINE SPECIMEN Ordering Facility: [facility] Address: [address] [place] [address] Performed By: #### 2 4356-8 #### [facility] CLIA [id number] [address] [place] [address] [place] Protein (U) [Mass/Vol] 1+ Abnormal Trace , Negative [facility] Comment on above: Order Comment: Speci men Type: URINE SPECIMEN Ordering Facility: [facility] Address: [address] [place] [address] Performed By: #### 2 4356-8 #### [facility] CLIA [id number] [address] [place] [address] [place] RBC LM.HPF (Urine sed) [#/Area] 0-3 /HPF Normal 0-3 /HPF [facility] Comment on above: Order Comment: Speci men Type: URINE SPECIMEN Ordering Facility: [facility] Address: [address] [place] [address] Performed By: #### 2 4356-8 #### [facility] CLIA [id number] [address] [place] [address] [place] Specific gravity (U) [Rel density] 1.031 High 1.005-1.030 [facility] Comment on above: Order Comment: Speci men Type: URINE SPECIMEN Ordering Facility: [facility] Address: [address] [place] [address] Performed By: #### 2 4356-8 #### [facility] CLIA [id number] [address] [place] [address] [place] Urobilinogen Ql (U) Normal Normal Normal [facility] Comment on above: Order Comment: Speci men Type: URINE SPECIMEN Ordering Facility: [facility] Address: [address] [place] [address] Performed By: #### 2 4356-8 #### [facility] CLIA [id number] [address] [place] [address] [place] WBC LM.HPF (Urine sed) [#/Area] 0-5 /HPF Normal 0-5 /HPF [facility] Comment on above: Order Comment: Speci men Type: URINE SPECIMEN Ordering Facility: [facility] Address: [address] [place] [address] Performed By: #### 2 4356-8 #### [facility] CLIA [id number] [address] [place] [address] [place] Renal function 2000 panelon 03-03-2024 Albumin [Mass/Vol] 4.3 g/dL Normal 3.9-4.9 [facility] Comment on above: Order Comment: Speci men Type: BLOOD SPECIMENOrdering Facility: [facility] Address: [address] [place] [address] Performed By: #### 2 4362-6 ####[facility] [id number] [place] [address] [place] Anion gap [Moles/Vol] 12 mmol/L Normal 8-15 [facility] Comment on above: Order Comment: Speci men Type: BLOOD SPECIMENOrdering Facility: [facility] Address: [address] [place] [address] Performed By: #### 2 4362-6 ####[facility] [id number] [place] [address] [place] Calcium [Mass/Vol] 9.7 mg/dL Normal 8.5-10.2 [facility] Comment on above: Order Comment: Speci men Type: BLOOD SPECIMENOrdering Facility: [facility] Address: [address] [place] [address] Performed By: #### 2 4362-6 ####[facility] [id number] [place] [address] [place] Chloride [Moles/Vol] 99 mmol/L Normal 98-107 [facility] Comment on above: Order Comment: Speci men Type: BLOOD SPECIMENOrdering Facility: [facility] Address: [address] [place] [address] Performed By: #### 2 4362-6 ####[facility] [id number] [place] [address] [place] CO2 [Moles/Vol] 28 mmol/L Normal 22-30 [facility] Comment on above: Order Comment: Speci men Type: BLOOD SPECIMENOrdering Facility: [facility] Address: [address] [place] [address] Performed By: #### 2 4362-6 ####[facility] [id number] [place] [address] [place] Creatinine [Mass/Vol] 2.23 mg/dL High 0.73-1.22 [facility] Comment on above: Order Comment: Speci men Type: BLOOD SPECIMENOrdering Facility: [facility] Address: [address] [place] [address] Performed By: #### 2 4362-6 ####[facility] [id number] [place] [address] [place] Creatinine and Glomerular filtration rate.predicted panel (S/P/Bld) 41 mL/min/1.73m??? Low >=60 [facility] Comment on above: Order Comment: Ebenezer paulson Type: BLOOD SPECIMENOrdering Facility: [facility] Address: [address] [place] [address] Result Comment: Jessika mated Glomerular Filtration Rate (eGFR) is calculated using the 2020 CKD-EPI creatinine equation. This equation utilizes serum creatinine, sex, and age as parameters. The creatinine assay has traceable calibration to isotope dilution-mass spectrometry. Refer to KDIGO guidelines for clinical interpretation. In patients with unstable renal function, e.g. those with acute kidney injury, the eGFR may not accurately reflect actual GFR. Performed By: #### 2 4362-6 ####[facility] [id number] [place] [address] [place] Glucose [Mass/Vol] 98 mg/dL Normal 74-99 [facility] Comment on above: Order Comment: Ebenezer paulson Type: BLOOD SPECIMENOrdering Facility: [facility] Address: [address] [place] [address] Result Comment: The [place] [employer] (ADA) provides guidance for cutoff values for fasting glucose and random glucose. The ADA defines fasting as no caloric intake for at least 8 hours. Fasting plasma glucose results between 100 to 125 mg/dL indicate increased risk for diabetes (prediabetes). Fasting plasma glucose results greater than or equal to 126 mg/dL meet the criteria for diagnosis of diabetes. In the absence of unequivocal hyperglycemia, results should be confirmed by repeat testing. In a patient with classic symptoms of hyperglycemia or hyperglycemic crisis, random plasma glucose results greater than or equal to 200 mg/dL meet the criteria for diagnosis of diabetes. Reference: Standards of Medical Care in Diabetes 2016, [place] [employer]. Diabetes Care. 2016.39(Suppl 1). Performed By: #### 2 4362-6 ####[facility] [id number] [place] [id number] [place] Phosphate [Mass/Vol] 3.6 mg/dL Normal 2.7-4.8 [facility] Comment on above: Order Comment: Speci men Type: BLOOD SPECIMENOrdering Facility: [facility] Address: [address] [place] [address] Performed By: #### 2 4362-6 ####[facility] [id number] [place] [address] [place] Potassium [Moles/Vol] 3.8 mmol/L Normal 3.7-5.1 [facility] Comment on above: Order Comment: Speci men Type: BLOOD SPECIMENOrdering Facility: [facility] Address: [address] [place] [address] Performed By: #### 2 4362-6 ####[facility] [id number] [place] [address] [place] Sodium [Moles/Vol] 139 mmol/L Normal 136-144 [facility] Comment on above: Order Comment: Speci men Type: BLOOD SPECIMENOrdering Facility: [facility] Address: [address] [place] [address] Performed By: #### 2 4362-6 ####[facility] [id number] [place] [address] [place] Urea nitrogen [Mass/Vol] 20 mg/dL Normal 9-24 [facility] Comment on above: Order Comment: Speci men Type: BLOOD SPECIMENOrdering Facility: [facility] Address: [address] [place] [address] Performed By: #### 2 4362-6 ####[facility] [id number] [place] [address] [place] CNOVon 11-18-2023 CNOV Office Visit (SALLY ) -------- YEHUDA SLAUGHTER ([id number]) [birth year]/ M Date Time Provider Department 11/18/23 11:30 AM QI SHERMAN During your visit today, we recorded the following information about you: Pulse Blood pressure Weight Height 68/minute 125/84 120.7 kg 1.778 m Qi Sherman, COLLIN.LEATHER [employer]T LOOP CUTTER 11/18/2023 11:44 AM Signed Pt is a 23 yo male here for follow up of CKD stage 3 in the setting of HTN nephrosclerosis-biopsy in [place]2020. He was last seen 08/2023. Doxazosin increased. Scr trend reviewed Apr 2022: Cr 2.2. Feb 2022: Cr 2.76 Jan 2021: Cr 3, Cr 11 Dec 2020: Cr 3.4 HTN: Known high BP 2016. Treated with anti-anxiety medicine. First BP med started in end of 2020. Hospitalized with HTN urgency, discharged on BP medications. Lisinopril/HCTZ stopped due to MARGOTH. 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 He works at a [employer] PAST MEDICAL HISTORY Diagnosis Date CKD (chronic kidney disease), stage III (HCC) HTN (hypertension) Creatinine Date Value Ref Range Status 08/12/2023 2.09 (H) 0.73 - 1.22 mg/dL Final 05/13/2023 2.17 (H) 0.73 - 1.22 mg/dL Final 12/29/2022 2.30 (H) 0.73 - 1.22 mg/dL Final Potassium Date Value Ref Range Status 08/12/2023 3.9 3.7 - 5.1 mmol/L Final 05/13/2023 4.0 3.7 - 5.1 mmol/L Final 12/29/2022 3.6 (L) 3.7 - 5.1 mmol/L Final Exam General: NAD, alert Lungs: CTA bilaterally Heart: RRR without murmur or rub Extremities: No edema BP - standardized method Pulse 1 BP #1: 125/82 Pulse #1: 75 beats/min 2 BP #2 : 124/84 Pulse #2 : 64 beats/min 3 BP #3 : 125/85 Pulse #3 : 64 beats/min Average Average BP: 125/84 Average Pulse: 68 beats/min Orthostatic vitals Supine Sitting Standing BP cuff location BP cuff location: Left upper arm BP cuff size BP cuff size: large adult Comments for BP values First BP (right) First BP (left) Impression/plan CKD stage 3-proteinuric, in the setting of HTN as noted above as well as past MARGOTH (AJITH). Baseline Scr is ~ 2.1-2.3-reviewed egfr and renal preservation as well as low Na diet and importance of BP control. He is not using NSAIDs. He is agreeable to SGLT2 inhibitor-start Jardiance (insurance preferred) 10mg every day. Labs 1-2 weeks after starting med. DNI-pjujixnfas-eoz list updated-of note he is not using clonidine patch but still using tablets. No changes. Heme-Hgb WNL Vitamin D deficiency-on supplement-update labs Eijvjfbiklujvyyt-tily-yl date labs Plan Start Jardiance 10mg every day Labs 1-2 weeks after starting med-nonfasting F/U 3-4 months PRETTY Mata Jennifer L, APRN.CNP 11/18/2023 11:41 AM Signed Jardiance 10mg daily Let me know when you receive the medication Labs 1-2 weeks after starting it-nonfasting Qi Sherman APRN.CNP Referring Provider: QI SHERMAN [[id number]] Allergies As of Date: 11/18/2023 Noted Allergy Reaction SHELLFISH CONTAINING PRODUCTS 03/10/2011 4 - Hives 12 - Shortness of Breath 7 - Swelling 14 - Other: See Comments Date Reviewed: 11/18/2023 Reviewed by: Meri Zhu LPN - Fully Assessed Reason for Visit: Follow Up [171] Primary Visit Diagnosis:Stage 3b chronic kidney disease (HCC) [N18.32] Other Visit Diagnoses:Proteinuria, unspecified type [R80.9] Benign hypertension with chronic kidney disease, stage III (HCC) [I12.9, N18.30] Vitamin D deficiency [E55.9] Hypophosphatemia [E83.39] Order(s):cloNIDine HCl (CATAPRES) 0.3 mg tabletTake 1 tablet by mouth three times a day.Disp: 270 tabletRfl: 3 empagliflozin (JARDIANCE) 10 mg tabletTake 1 tablet by mouth daily with breakfast.Disp: 90 tabletRfl: 3 RENAL FUNCTION PANEL [SQRFP] Order #: [id number] FUTURE ALBUMIN/CREATININE RATIO, URINE [SQUACR] Order #: [id number] FUTURE CREATININE RANDOM URINE [SQUCRR] Order #: [id number] FUTURE PROTEIN RANDOM URINE [SQUTPR] Order #: [id number] FUTURE VITAMIN D 25 HYDROXY [SQVITD] Order #: [id number] FUTURE Prescriptions as of 11/18/2023 - cloNIDine HCl (CATAPRES) 0.3 mg tablet Take 1 tablet by mouth three times a day. - empagliflozin (JARDIANCE) 10 mg tablet Take 1 tablet by mouth daily with breakfast. - doxazosin (CARDURA) 8 mg tablet Take 1 tablet by mouth two times a day. - carvedilol (COREG) 12.5 mg tablet Take 1 tablet by mouth two times a day. - verapamil SR (CALAN SR) 240 mg CR tablet Take 1 tablet by mouth two times a day. - ergocalciferol 50,000 unit capsule (VITAMIN D2, DRISDOL) Take 1 capsule by mouth one time a week. Problem List As Of Date 11/18/2023 Noted Resolved Abnormal results of kidney function studies [R9*04/20/2022 Attention deficit disorder [F98.8] 12/30/2011 Essential (primary) hypertension [I10] 04/20/2022 BMI (body mass index), pediatric, > 99% for age*08/04/2016 Proteinuria [R80.9] 04/24/2022 Other instructions from your clinician: Jardiance 10mg daily Let me know when you receive the (more content not included)... Normal [facility] CBC panel Auto (Bld)on 08-11 Erythrocyte distribution width (RBC) [Ratio] 12.7 % 11.5 - 15.0 % [facility] Hematocrit (Bld) [Volume fraction] 44.4 % 39.0 - 51.0 % [facility] Hemoglobin (Bld) [Mass/Vol] 15.2 g/dL 13.0 - 17.0 g/dL [facility] MCH (RBC) [Entitic mass] 28.3 pg 26.0 - 34.0 pg [facility] MCHC (RBC) [Mass/Vol] 34.2 g/dL 30.5 - 36.0 g/dL [facility] MCV (RBC) [Entitic vol] 82.5 fL 80.0 - 100.0 fL [facility] Nucleated RBC (Bld) [#/Vol] <0.01 k/uL [facility] Platelet mean volume (Bld) [Entitic vol] 10.4 fL 9.0 - 12.7 fL [facility] Platelets (Bld) [#/Vol] 312 10*3/uL 150 - 400 k/uL [facility] RBC (Bld) [#/Vol] 5.38 10*6/uL 4.20 - 6.0 0 m/uL [facility] WBC (Bld) [#/Vol] 7.46 10*3/uL 3.70 - 11. 00 k/uL [facility] Erythrocyte distribution width (RBC) [Ratio] 12.7 % Normal 11.5-15.0 [facility] Comment on above: Order Comment: Speci men Type: BLOOD SPECIMEN Ordering Facility: [facility] Address: [address] [place] [address] Performed By: #### 5 8410-2 #### [facility] CLIA [id number] [address] [place] [address] [place] Hematocrit (Bld) [Volume fraction] 44.4 % Normal 39.0-51.0 [facility] Comment on above: Order Comment: Aci lorene Type: BLOOD SPECIMEN Ordering Facility: [facility] Address: [address] [place] [address] Performed By: #### 5 8410-2 #### [facility] CLIA [id number] [address] [place] [address] [place] Hemoglobin (Bld) [Mass/Vol] 15.2 g/dL Normal 13.0-17.0 [facility] Comment on above: Order Comment: Speci men Type: BLOOD SPECIMEN Ordering Facility: [facility] Address: [address] [place] [address] Performed By: #### 5 8410-2 #### [facility] CLIA [id number] [address] [place] [address] [place] MCH (RBC) [Entitic mass] 28.3 pg Normal 26.0-34.0 [facility] Comment on above: Order Comment: Speci men Type: BLOOD SPECIMEN Ordering Facility: [facility] Address: [address] [place] [address] Performed By: #### 5 8410-2 #### [facility] CLIA [id number] [address] [place] [address] [place] MCHC (RBC) [Mass/Vol] 34.2 g/dL Normal 30.5-36.0 [facility] Comment on above: Order Comment: Speci men Type: BLOOD SPECIMEN Ordering Facility: [facility] Address: [address] [place] [address] Performed By: #### 5 8410-2 #### [facility] CLIA [id number] [address] [place] [address] [place] MCV (RBC) [Entitic vol] 82.5 fL Normal 80.0-100.0 [facility] Comment on above: Order Comment: Speci men Type: BLOOD SPECIMEN Ordering Facility: [facility] Address: [address] [place] [address] Performed By: #### 5 8410-2 #### [facility] CLIA [id number] [address] [place] [address] [place] Nucleated RBC (Bld) [#/Vol] 10*3/uL Normal <0.01 [facility] Comment on above: Order Comment: Speci men Type: BLOOD SPECIMEN Ordering Facility: [facility] Address: [address] [place] [address] Performed By: #### 5 8410-2 #### [facility] CLIA [id number] [address] [place] [address] [place] Platelet mean volume (Bld) [Entitic vol] 10.4 fL Normal 9.0-12.7 [facility] Comment on above: Order Comment: Speci men Type: BLOOD SPECIMEN Ordering Facility: [facility] Address: [address] [place] [address] Performed By: #### 5 8410-2 #### [facility] CLIA [id number] [address] [place] [address] [place] Platelets (Bld) [#/Vol] 312 10*3/uL Normal 150-400 [facility] Comment on above: Order Comment: Aci lorene Type: BLOOD SPECIMEN Ordering Facility: [facility] Address: [address] [place] [address] Performed By: #### 5 8410-2 #### [facility] CLIA [id number] [address] [place] [address] [place] RBC (Bld) [#/Vol] 5.38 10*6/uL Normal 4.20-6.00 [facility] Comment on above: Order Comment: Speci men Type: BLOOD SPECIMEN Ordering Facility: [facility] Address: [address] [place] [address] Performed By: #### 5 8410-2 #### [facility] CLIA [id number] [address] [place] [address] [place] WBC (Bld) [#/Vol] 7.46 10*3/uL Normal 3.70-11.00 [facility] Comment on above: Order Comment: Aci men Type: BLOOD SPECIMEN Ordering Facility: [facility] Address: [address] [place] [address] Performed By: #### 5 8410-2 #### [facility] CLIA [id number] [address] [place] [address] [place] CNOVon 08-12-2023 CNOV Office Visit (SALLY ) -------- YEHUDA SLAUGHTER ([id number]) 16/00 M Date Time Provider Department 08/12/23 11:30 AM QI SHERMAN During your visit today, we recorded the following information about you: Pulse Respiration Blood pressure Weight 64/minute 22/minute 147/[address] Qi Luz Elena, PLACEMENT SPECIALIST.LEATHER [employer]TER 08/12/2023 11:41 AM Signed Pt is a 23 yo male here for follow up of CKD stage 3 in the setting of HTN nephrosclerosis-biopsy in [place]2020. He was last seen 05/2023. Doxazosin increased. Scr trend reviewed Apr 2022: Cr 2.2. Feb 2022: Cr 2.76 Jan 2021: Cr 3, Cr 11 Dec 2020: Cr 3.4 HTN: Known high BP 2016. Treated with anti-anxiety medicine. First BP med started in end 2020. Hospitalized with HTN urgency, discharged on BP medications. Lisinopril/HCTZ stopped due to MARGOTH. 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 Home BPs as noted in last mychart message PAST MEDICAL HISTORY Diagnosis Date CKD (chronic kidney disease), stage III (HCC) HTN (hypertension) Creatinine Date Value Ref Range Status 05/13/2023 2.17 (H) 0.73 - 1.22 mg/dL Final 12/29/2022 2.30 (H) 0.73 - 1.22 mg/dL Final 08/27/2022 2.16 (H) 0.73 - 1.22 mg/dL Final Potassium Date Value Ref Range Status 05/13/2023 4.0 3.7 - 5.1 mmol/L Final 12/29/2022 3.6 (L) 3.7 - 5.1 mmol/L Final 08/27/2022 4.0 3.7 - 5.1 mmol/L Final Exam General: NAD, alert Lungs: CTA bilaterally Heart: RRR without murmur or rub Extremities: No edema BP - standardized method Pulse 1 BP #1: 146/98 Pulse #1: 62 beats/min 2 BP #2 : 146/94 Pulse #2 : 63 beats/min 3 BP #3 : 148/104 Pulse #3 : 66 beats/min Average Average BP: 147/99 Average Pulse: 64 beats/min Orthostatic vitals Supine Sitting Standing BP cuff location BP cuff location: Left upper arm BP cuff size BP cuff size: large adult Comments for BP values First BP (right) First BP (left) Impression/plan CKD stage 3-proteinuric, in the setting of HTN as noted above as well as past MARGOTH. Baseline Scr is ~ 2.1-2.3-reviewed egfr and renal preservation as well as low Na diet and importance of BP control. He is not using NSAIDs. Consider Farxiga once BP stable. YNB-iuzjkvyfueek-ocqrsqo e doxazosin to 8mg bid. I asked he also check on cost of clonidine patch 0.3mg at pharmacy. Can possibly change to that is BP remain hard to control. Heme-Hgb WNL Vitamin D deficiency-he forgot to take vitamin D for awhile-resume vitamin D Hypophosphatemia-unsure on cause in May 2023-update labs today Plan Labs Resume vitamin D Increase doxazosin to 8mg bid Send home BPs in 1 week F/U 3 months Qi Sherman APRN.LEATH[employer] Allergies As of Date: 08/12/2023 Noted Allergy Reaction SHELLFISH CONTAINING PRODUCTS 03/10/2011 4 - Hives 12 - Shortness of Breath 7 - Swelling 14 - Other: See Comments Date Reviewed: 08/12/2023 Reviewed by: Mary Becker MA - Fully Assessed Reason for Visit: Follow Up [171] Primary Visit Diagnosis:Stage 3b chronic kidney disease (HCC) [N18.32] Other Visit Diagnoses:Proteinuria, unspecified type [R80.9] Benign hypertension with chronic kidney disease, stage III (HCC) [I12.9, N18.30] Vitamin D deficiency [E55.9] Hypophosphatemia [E83.39] Order(s):CBC [SQCBC] Order #: [id number] FUTURE RENAL FUNCTION PANEL [SQRFP] Order #: [id number] FUTURE CREATININE RANDOM UR [SQUCRR] Order #: [id number] FUTURE PROTEIN RANDOM UR [SQUTPR] Order #: [id number] FUTURE doxazosin (CARDURA) 8 mg tabletTake 1 tablet by mouth two times a day.Disp: 60 tabletRfl: 3 Prescriptions as of 08/12/2023 - doxazosin (CARDURA) 8 mg tablet Take 1 tablet by mouth two times a day. - verapamil SR (CALAN SR) 240 mg CR tablet Take 1 tablet by mouth two times a day. - carvedilol (COREG) 12.5 mg tablet Take 1 tablet by mouth two times a day. - cloNIDine HCl (CATAPRES) 0.3 mg tablet Take 1 tablet by mouth three times a day. - ergocalciferol 50,000 unit capsule (VITAMIN D2, DRISDOL) Take 1 capsule by mouth one time a week. Problem List As Of Date 08/12/2023 Noted Resolved Abnormal results of kidney function studies [R9*04/20/2022 Attention deficit disorder [F98.8] 12/30/2011 Essential (primary) hypertension [I10] 04/20/2022 BMI (body mass index), pediatric, > 99% for age*08/04/2016 Proteinuria [R80.9] 04/24/2022 Prescriptions ordered this encounter Disp Refills Start End DOXAZOSIN 8 MG TABLET 60 t* 3 08/12/2023 Route: ORAL Sig: Take 1 tablet by mouth two times a day. Medications Discontinued During This Encounter Prescriptions - doxazosin (CARDURA) 4 mg tablet (Discontinued) Take 1 tablet by mouth two times a day. Disposition: Return in about 3 months (around 11/11/2023). Follow-up and Disposition History for Encounter Date Provider Department Center 08/12/2023 [facility] Encounter Status:Clos (more content not included)... Normal [facility] Creatinine Unsp time (U) [Ma ss/Vol]on 08-12-2023 Creatinine (U) [Mass/Vol] 252.2 mg/dL 20.0 - 300.0 mg/dL [facility] Creatinine (U) [Mass/Vol] 252.2 mg/dL Normal 20.0-300.0 [facility] Comment on above: Order Comment: Ebenezer paulson Type: URINE SPECIMEN Ordering Facility: [facility] Address: [address] [place] [address] Performed By: #### 3 5674-1 #### [facility] CLIA [id number] [address] [place] [address] [place] HbA1c (Bld)on 08-12-2023 Average glucose Estimated from glycated hemoglobin (Bld) [Mass/Vol] 134 mg/dL Normal [facility] Comment on above: Order Comment: Ebenezer paulson Type: BLOOD SPECIMEN Ordering Facility: [facility] Address: [address] [place] [address] Result Comment: eAG: (Estimated average glucose) is a calculated value from HgbA1c and is retail representative of the average blood glucose level in the last 2-3 month period. Performed By: #### 5 5454-3 #### [facility] CLIA [id number] [address] [place] [address] [place] HbA1c (Bld) [Mass fraction] 6.3 % High 4.3-5.6 [facility] Comment on above: Order Comment: Speci men Type: BLOOD SPECIMEN [facility] [facility] Address: [address] [place] [address] Result Comment: [place] Diabetes Association guidelines indicate that patients with HgbA1c in the range 5.7-6.4% are at increased risk for development of diabetes, and intervention by lifestyle modification may be beneficial. HgbA1c greater or equal to 6.5% is considered diagnostic of diabetes. Performed By: #### 5 5454-3 #### [facility] CLIA [id number] [address] [place] [address] [place] PROTEIN RANDOM URon 08-12-19 24 Protein (U) [Mass/Vol] 55 mg/dL High 0 - 20 mg/dL [facility] Prot Ur-mCncon 08-12-2023 Protein (U) [Mass/Vol] 55 mg/dL High 0-20 [facility] Comment on above: Order Comment: Speci men Type: URINE SPECIMEN Ordering Facility: [facility] Address: [address] [place] [address] Performed By: #### 2 888-6 #### [facility] CLIA [id number] [address] [place] [address] [place] Renal function 2000 panelon 08-12-2023 Albumin [Mass/Vol] 4.1 g/dL Normal 3.9-4.9 [facility] Comment on above: Order Comment: Speci men Type: BLOOD SPECIMEN Ordering Facility: [facility] Address: [address] [place] [address] Performed By: #### 1 989-3 #### [facility] CLIA [id number] [address] [place] [address] [place] Anion gap [Moles/Vol] 9 mmol/L Normal 9-18 [facility] Comment on above: Order Comment: Speci men Type: BLOOD SPECIMEN Ordering Facility: [facility] Address: [address] [place] [address] Performed By: #### 1 989-3 #### [facility] CLIA [id number] [address] [place] [address] [place] Calcium [Mass/Vol] 9.7 mg/dL Normal 8.5-10.2 [facility] Comment on above: Order Comment: Speci men Type: BLOOD SPECIMEN Ordering Facility: [facility] Address: [address] [place] [address] Performed By: #### 1 989-3 #### [facility] CLIA [id number] [address] [place] [address] [place] Chloride [Moles/Vol] 101 mmol/L Normal 97-105 [facility] Comment on above: Order Comment: Speci men Type: BLOOD SPECIMEN Ordering Facility: [facility] Address: [address] [place] [address] Performed By: #### 1 989-3 #### [facility] CLIA [id number] [address] [place] [address] [place] CO2 [Moles/Vol] 28 mmol/L Normal 22-30 [facility] Comment on above: Order Comment: Speci men Type: BLOOD SPECIMEN Ordering Facility: [facility] Address: [address] [place] [address] Performed By: #### 1 989-3 #### [facility] CLIA [id number] [address] [place] [address] [place] Creatinine [Mass/Vol] 2.09 mg/dL High 0.73-1.22 [facility] Comment on above: Order Comment: Speci men Type: BLOOD SPECIMEN Ordering Facility: [facility] Address: [facility] [place] [address] Performed By: #### 1 989-3 #### [facility] CLIA [id number] [address] [place] [address] [place] Creatinine and Glomerular filtration rate.predicted panel (S/P/Bld) 45 mL/min/1.73m??? Low >=60 [facility] Comment on above: Order Comment: Ebenezer paulson Type: BLOOD SPECIMEN Ordering Facility: [facility] Address: [address] [place] [address] Result Comment: Jessika mated Glomerular Filtration Rate (eGFR) is calculated using the 2020 CKD-EPI creatinine equation. This equation utilizes serum creatinine, sex, and age as parameters. The creatinine assay has traceable calibration to isotope dilution-mass spectrometry. Refer to KDIGO guidelines for clinical interpretation. In patients with unstable renal function, e.g. those with acute kidney injury, the eGFR may not accurately reflect actual GFR. Performed By: #### 1 989-3 #### [facility] CLIA [id number] [address] [place] [address] [place] Glucose [Mass/Vol] 121 mg/dL High 74-99 [facility] Comment on above: Order Comment: Ebenezer paulson Type: BLOOD SPECIMEN Ordering Facility: [facility] Address: [address] [place] [address] Result Comment: The [place] Diabetes Association (ADA) provides guidance for cutoff values for fasting glucose and random glucose. The ADA defines fasting as no caloric intake for at least 8 hours. Fasting plasma glucose results between 100 to 125 mg/dL indicate increased risk for diabetes (prediabetes). Fasting plasma glucose results greater than or equal to 126 mg/dL meet the criteria for diagnosis of diabetes. In the absence of unequivocal hyperglycemia, results should be confirmed by repeat testing. In a patient with classic symptoms of hyperglycemia or hyperglycemic crisis, random plasma glucose results greater than or equal to 200 mg/dL meet the criteria for diagnosis of diabetes. Reference: Standards of Medical Care in Diabetes 2016, [place] Diabetes Association. Diabetes Care. 2016.39(Suppl 1). Performed By: #### 1 989-3 #### [facility] CLIA [id number] [address] [place] [id number] [place] Phosphate [Mass/Vol] 2.3 mg/dL Low 2.7-4.8 [facility] Comment on above: Order Comment: Speci men Type: BLOOD SPECIMEN Ordering Facility: [facility] Address: [address] [place] [address] Performed By: #### 1 989-3 #### [facility] CLIA [id number] [address] [place] [address] [place] Potassium [Moles/Vol] 3.9 mmol/L Normal 3.7-5.1 [facility] Comment on above: Order Comment: Speci men Type: BLOOD SPECIMEN Ordering Facility: [facility] Address: [address] [place] [address] Performed By: #### 1 989-3 #### [facility] CLIA [id number] [address] [place] [address] [place] Sodium [Moles/Vol] 138 mmol/L Normal 136-144 [facility] Comment on above: Order Comment: Speci men Type: BLOOD SPECIMEN Ordering Facility: [facility] Address: [address] [place] [address] Performed By: #### 1 989-3 #### [facility] CLIA [id number] [address] [place] [address] [place] Urea nitrogen [Mass/Vol] 25 mg/dL High 9-24 [facility] Comment on above: Order Comment: Speci men Type: BLOOD SPECIMEN Ordering Facility: [facility] Address: [address] [place] [address] Performed By: #### 1 989-3 #### [facility] CLIA [id number] [address] [place] [id number] [place] 25(OH)D3 [facility] 2023 25-hydroxyvitamin D3 [Mass/Vol] 21.8 ng/mL Low 31.0-80.0 [facility] Comment on above: Order Comment: Speci men Type: BLOOD SPECIMEN Ordering Facility: [facility] Address: [address] [place] [address] Result Comment: Clas sification of 25 [place] Vitamin D status: Deficiency/Insufficiency: < or = 30 ng/ml. Sufficiency/Optimal Levels: 31-80 ng/mL Toxicity: > 100 ng/mL. Test performed by chemiluminescent immunoassay. Performed By: #### 1 989-3 #### [facility] CLIA [id number] [address] [facility] [id number] [place] CBC panel Auto (Bld)on 05-13 Erythrocyte distribution width (RBC) [Ratio] 12.4 % Normal 11.5-15.0 [facility] Comment on above: Order Comment: Speci men Type: BLOOD SPECIMEN Ordering Facility: [facility] Address: [address] [place] [address] Performed By: #### 5 8410-2 #### [facility] CLIA [id number] [address] [place] [address] [place] Hematocrit (Bld) [Volume fraction] 45.7 % Normal 39.0-51.0 [facility] Comment on above: Order Comment: Speci men Type: BLOOD SPECIMEN Ordering Facility: [facility] Address: [address] [place] [address] Performed By: #### 5 8410-2 #### [facility] CLIA [id number] [address] [place] [address] [place] Hemoglobin (Bld) [Mass/Vol] 15.3 g/dL Normal 13.0-17.0 [facility] Comment on above: Order Comment: Speci men Type: BLOOD SPECIMEN Ordering Facility: [facility] Address: [address] [place] [address] Performed By: #### 5 8410-2 #### [facility] CLIA [id number] [address] [place] [address] [place] MCH (RBC) [Entitic mass] 28.1 pg Normal 26.0-34.0 [facility] Comment on above: Order Comment: Speci men Type: BLOOD SPECIMEN Ordering Facility: [facility] Address: [address] [place] [address] Performed By: #### 5 8410-2 #### [facility] CLIA [id number] [address] [place] [address] [place] MCHC (RBC) [Mass/Vol] 33.5 g/dL Normal 30.5-36.0 [facility] Comment on above: Order Comment: Speci men Type: BLOOD SPECIMEN Ordering Facility: [facility] Address: [address] [place] [address] Performed By: #### 5 8410-2 #### [facility] CLIA [id number] [address] [place] [address] [place] MCV (RBC) [Entitic vol] 83.9 fL Normal 80.0-100.0 [facility] Comment on above: Order Comment: Speci men Type: BLOOD SPECIMEN Ordering Facility: [facility] Address: [address] [place] [address] Performed By: #### 5 8410-2 #### [facility] CLIA [id number] [address] [place] [address] [place] Nucleated RBC (Bld) [#/Vol] 10*3/uL Normal <0.01 [facility] Comment on above: Order Comment: Speci men Type: BLOOD SPECIMEN Ordering Facility: [facility] Address: [address] [place] [address] Performed By: #### 5 8410-2 #### [facility] CLIA [id number] [address] [place] [address] [place] Platelet mean volume (Bld) [Entitic vol] 10.3 fL Normal 9.0-12.7 [facility] Comment on above: Order Comment: Speci men Type: BLOOD SPECIMEN Ordering Facility: [facility] Address: [address] [place] [address] Performed By: #### 5 8410-2 #### [facility] CLIA [id number] [address] [place] [address] [place] Platelets (Bld) [#/Vol] 269 10*3/uL Normal 150-400 [facility] Comment on above: Order Comment: Speci men Type: BLOOD SPECIMEN Ordering Facility: [facility] Address: [address] [place] [address] Performed By: #### 5 8410-2 #### [facility] CLIA [id number] [address] [place] [address] [place] RBC (Bld) [#/Vol] 5.45 10*6/uL Normal 4.20-6.00 [facility] Comment on above: Order Comment: Speci men Type: BLOOD SPECIMEN Ordering Facility: [facility] Address: [address] [place] [address] Performed By: #### 5 8410-2 #### [facility] CLIA [id number] [address] [place] [address] [place] WBC (Bld) [#/Vol] 6.47 10*3/uL Normal 3.70-11.00 [facility] Comment on above: Order Comment: Speci men Type: BLOOD SPECIMEN Ordering Facility: [facility] Address: [address] [place] [address] Performed By: #### 5 8410-2 #### [facility] CLIA [id number] [address] [place] [address] [place] Creatinine Unsp time (U) [Ma ss/Vol]on 05-13-2023 Creatinine (U) [Mass/Vol] 321.6 mg/dL High 20.0-300.0 [facility] Comment on above: Order Comment: Speci men Type: URINE SPECIMEN Ordering Facility: [facility] Address: [address] [place] [address] Performed By: #### 3 5674-1 #### [facility] CLIA [id number] [address] [place] [address] [place] PTH-Intact SerPl-mCncon Parathyrin.intact [Mass/Vol] 54 pg/mL Normal 15-65 [facility] Comment on above: Order Comment: Speci men Type: BLOOD SPECIMEN Ordering Facility: [facility] Address: [address] [place] [address] Performed By: #### 2 731-8 #### [facility] CLIA [id number] [address] [place] [address] [place] Prot Ur-mCncon 05-13-2023 Protein (U) [Mass/Vol] 72 mg/dL High 0-20 [facility] Comment on above: Order Comment: Speci men Type: BLOOD SPECIMEN Ordering Facility: [facility] Address: [address] [place] [address] Performed By: #### 1 989-3 #### [facility] CLIA [id number] [address] [place] [address] [place] Renal function 2000 panelon 05-13-2023 Albumin [Mass/Vol] 4.2 g/dL Normal 3.9-4.9 [facility] Comment on above: Order Comment: Speci men Type: BLOOD SPECIMEN Ordering Facility: [facility] Address: [address] [place] [address] Performed By: #### 1 989-3 #### [facility] CLIA [id number] [address] [place] [address] [place] Anion gap [Moles/Vol] 11 mmol/L Normal 9-18 [facility] Comment on above: Order Comment: Speci men Type: BLOOD SPECIMEN Ordering Facility: [facility] Address: [address] [place] [address] Performed By: #### 1 989-3 #### [facility] CLIA [id number] [address] [place] [address] [place] Calcium [Mass/Vol] 9.3 mg/dL Normal 8.5-10.2 [facility] Comment on above: Order Comment: Speci men Type: BLOOD SPECIMEN Ordering Facility: [facility] Address: [address] [place] [address] Performed By: #### 1 989-3 #### [facility] CLIA [id number] [address] [place] [address] [place] Chloride [Moles/Vol] 102 mmol/L Normal 97-105 [facility] Comment on above: Order Comment: Speci men Type: BLOOD SPECIMEN Ordering Facility: [facility] Address: [address] [place] [address] Performed By: #### 1 989-3 #### [facility] CLIA [id number] [address] [place] [address] [place] CO2 [Moles/Vol] 27 mmol/L Normal 22-30 [facility] Comment on above: Order Comment: Speci men Type: BLOOD SPECIMEN Ordering Facility: [facility] Address: [address] [place] [address] Performed By: #### 1 989-3 #### [facility] CLIA [id number] [address] [place] [address] [place] Creatinine [Mass/Vol] 2.17 mg/dL High 0.73-1.22 [facility] Comment on above: Order Comment: Speci men Type: BLOOD SPECIMEN Ordering Facility: [facility] Address: [address] [place] [address] Performed By: #### 1 989-3 #### [facility] CLIA [id number] [address] [place] [address] [place] Creatinine and Glomerular filtration rate.predicted panel (S/P/Bld) 43 mL/min/1.73m??? Low >=60 [facility] Comment on above: Order Comment: Speci men Type: BLOOD SPECIMEN Ordering Facility: [facility] Address: [address] [place] [address] Result Comment: Jessika mated Glomerular Filtration Rate (eGFR) is calculated using the 2020 CKD-EPI creatinine equation. This equation utilizes serum creatinine, sex, and age as parameters. The creatinine assay has traceable calibration to isotope dilution-mass spectrometry. Refer to KDIGO guidelines for clinical interpretation. In patients with unstable renal function, e.g. those with acute kidney injury, the eGFR may not accurately reflect actual GFR. Performed By: #### 1 989-3 #### [facility] CLIA [id number] [address] [place] [id number] [place] Glucose [Mass/Vol] 186 mg/dL High 74-99 [facility] Comment on above: Order Comment: Ebenezer paulson Type: BLOOD SPECIMEN Ordering Facility: [facility] Address: [address] [place] [address] Result Comment: The [place] Diabetes Association (ADA) provides guidance for cutoff values for fasting glucose and random glucose. The ADA defines fasting as no caloric intake for at least 8 hours. Fasting plasma glucose results between 100 to 125 mg/dL indicate increased risk for diabetes (prediabetes). Fasting plasma glucose results greater than or equal to 126 mg/dL meet the criteria for diagnosis of diabetes. In the absence of unequivocal hyperglycemia, results should be confirmed by repeat testing. In a patient with classic symptoms of hyperglycemia or hyperglycemic crisis, random plasma glucose results greater than or equal to 200 mg/dL meet the criteria for diagnosis of diabetes. Reference: Standards of Medical Care in Diabetes 2016, [place] [employer]. Diabetes Care. 2016.39(Suppl 1). Performed By: #### 1 989-3 #### [facility] CLIA [id number] [address] [place] [address] [place] Phosphate [Mass/Vol] 1.3 mg/dL Low 2.7-4.8 [facility] Comment on above: Order Comment: Ebenezer paulson Type: BLOOD SPECIMEN Ordering Facility: [facility] Address: [address] [place] [address] Performed By: #### 1 989-3 #### [facility] [place] [id number] [address] [place], [place] [address] [place] Potassium [Moles/Vol] 4.0 mmol/L Normal 3.7-5.1 [facility] Comment on above: Order Comment: Ebenezer paulson Type: BLOOD SPECIMEN Ordering Facility: [facility] Address: [address] [place] [address] Performed By: #### 1 989-3 #### [facility] CLIA [id number] [address] [place] [address] [place] Sodium [Moles/Vol] 140 mmol/L Normal 136-144 [facility] Comment on above: Order Comment: Speci men Type: BLOOD SPECIMEN Ordering Facility: [facility] Address: [address] [place] [address] Performed By: #### 1 989-3 #### [facility] CLIA [id number] [address] [place] [address] [place] Urea nitrogen [Mass/Vol] 24 mg/dL Normal 9-24 [facility] Comment on above: Order Comment: Speci men Type: BLOOD SPECIMEN Ordering Facility: [facility] Address: [address] [place] [address] Performed By: #### 1 989-3 #### [facility] CLIA [id number] [address] [place] [address] [place] Basic Metabolic Profile (BMP )on 04-20-2022 BUN/CRE 10.3 RATIO Normal 10-20 [facility] Comment on above: Performed By: #### L 500.2500 #### [facility] [address] [place], [address] CA,Total 9.4 mg/dL Normal 8.5-10.1 [facility] Comment on above: Performed By: #### L 500.2500 #### [facility] [address] [place], [address] EST GFR - AA 47 mL/min Low >60 [facility] Comment on above: Result Comment: Afri can [place] GFR Calc Performed By: #### L 500.2500 #### [facility] [address] [place], [address] GAP 4 Low 5-15 [facility] Comment on above: Performed By: #### L 500.2500 #### [facility] [address] [place], [address] GFR/1.73 sq M.predicted among non-blacks MDRD (S/P/Bld) [Vol rate/Area] 39 mL/min/{1.73_m2} Low >60 [facility] Comment on above: Result Comment: Non- GFR Calc Performed By: #### L 500.2500 #### [facility] [address] [place], [address] Basic Metabolic Profile (BMP )Ordered By: [facility] on 04-20-2022 CO2 [Moles/Vol] 29.0 mmol/L Normal 21.0-32.0 [facility] Comment on above: Performed By: #### L 500.2500 #### [facility] [address] [place], [address] Basophil percentageOrdered B y: [facility] on 04-20-2022 Chloride [Moles/Vol] 103 mmol/L Normal 98-107 [facility] Comment on above: Performed By: #### L 500.2500 #### [facility] [address] [place], [address] Glucose [Mass/Vol] 105 mg/dL Normal 74-106 [facility] Comment on above: Fasting Glucose resu lt from 100 to 125 mg/dL suggests IMPAIRED HOMEOSTASIS per A.D.A. criteria. Result Comment: Fast ing Glucose result from 100 to 125 mg/dL suggests IMPAIRED HOMEOSTASIS per A.D.A. criteria. Performed By: #### L 500.2500 #### [facility] [address] [place], [address] Potassium [Moles/Vol] 3.7 mmol/L Normal 3.5-5.1 [facility] Comment on above: Performed By: #### L 500.2500 #### [facility] [address] [place], [address] Sodium [Moles/Vol] 136 mmol/L Normal 136-145 [facility] Comment on above: Performed By: #### L 500.2500 #### [facility] [address] [place], [address] Laboratory - Chemistry and C hemistry - challengeOrdered By: [facility] on 04-20-2022 Urea nitrogen/Creatinine [Mass ratio] 10.3 mg/mg 10-20 [facility] No Panel InformationOrdered By: [facility] on 04-20-2022 Estimated GFR (MDRD) Amer 47 mL/min >60 [facility] Comment on above: GFR Calc Estimated GFR (MDRD) Non-Af Amer 39 mL/min >60 [facility] Comment on above: Non- GFR Calc Serum or plasma calcium kirti urement (mass/volume)Ordered By: [facility] on 04-20-2022 Calcium [Mass/Vol] 9.4 mg/dL 8.5-10.1 [facility] Serum or plasma creatinine m easurement (mass/volume)Ordered By: [facility] on 04-20-2022 Creatinine [Mass/Vol] 2.23 mg/dL High 0.70-1.30 [facility] Comment on above: The validity of the calculated GFR & GFRAA in patients over 70 years has not been determined. Clinical correlation is essential. Result Comment: The validity of the calculated GFR GFRAA in patients over 70 years has not been determined. Clinical correlation is essential. Performed By: #### L 500.2500 #### [facility] [address] [place], [address] Serum or plasma urea nitroge n measurement (mass/volume)Ordered By: [facility] on 04-20-2022 Urea nitrogen [Mass/Vol] 23 mg/dL High 7-18 [facility] Comment on above: Performed By: #### L 500.2500 #### [facility] [address] [place], [address] Thin prep Papanicolaou smear with manual screeningOrdered By: [facility] on 04-20-2022 Thin prep Papanicolaou smear with manual screening 4 5-15 [facility] Absolute lymphocyte counton 02-19-2022 Lymphocytes Auto (Unsp spec) [#/Vol] 2.55 10*3/uL 0.83-4.51 [facility] Work Phone: Basophil percentageon 2021 Basophils/100 WBC (Bld) 0.5 % 0-1 [facility] Work Phone: Bilirubin [Mass/Vol] 0.40 mg/dL 0.20-1.00 [facility] Work Phone: Comment on above: For patients on eltr ombopag therapy, use of Dimension [place] TBIL is not recommended. Chloride [Moles/Vol] 104 mmol/L 98-107 [facility] Work Phone: Eosinophils/100 WBC (Bld) 4.3 % 0-5 [facility] Work Phone: Glucose [Mass/Vol] 98 mg/dL 74-106 [facility] Work Phone: Neutrophils (Bld) [#/Vol] 4.2 10*3/uL 2.0-7.7 [facility] Work Phone: Neutrophils/100 WBC (Bld) 52.2 % 47-70 [facility] Work Phone: Potassium [Moles/Vol] 3.8 mmol/L 3.5-5.1 [facility] Work Phone: Protein [Mass/Vol] 8.3 g/dL 6.4-8.2 [facility] Work Phone: Sodium [Moles/Vol] 138 mmol/L 136-145 [facility] Work Phone: WBC (Bld) [#/Vol] 8.1 10*3/uL 4.4-11.0 [facility] Work Phone: Blood erythrocytes count (nu mber/volume)on 02-19-2022 RBC (Bld) [#/Vol] 5.15 10*6/uL 4.6-6.2 [facility] Work Phone: Blood hemoglobin measurement (mass/volume)on 02-19-2022 Hemoglobin (Bld) [Mass/Vol] 14.5 g/dL 13.0-16.5 [facility] Work Phone: Blood lymphocytes/100 leukoc yteson 02-19-2022 Lymphocytes/100 WBC (Bld) 31.6 % 19-41 [facility] Work Phone: Blood monocytes/100 leukocyt eson 02-19-2022 Monocytes/100 WBC (Bld) 11.3 % 0-10 [facility] Work Phone: Blood platelet mean volumeon 02-19-2022 Platelet mean volume (Bld) [Entitic vol] 10.0 fL 6.2-12.0 [facility] Work Phone: CBC W/Diff, Automatedon 02-07 Absolute Lymph 2.55 X10 3/uL Normal 0.83-4.51 [facility] Comment on above: Performed By: #### L 502.0250, L501.9520, L500.4050, L100.0100 #### [facility] [address] [place], [address] Absolute Neut 4.2 X10 3/uL Normal 2.0-7.7 [facility] Comment on above: Performed By: #### L 502.0250, L501.9520, L500.4050, L100.0100 #### [facility] [address] [place], [address] Basophils/100 WBC (Bld) 0.5 % Normal 0-1 [facility] Comment on above: Performed By: #### L 502.0250, L501.9520, L500.4050, L100.0100 #### [facility] [address] [place], [address] Eosinophils/100 WBC (Bld) 4.3 % Normal 0-5 [facility] Comment on above: Performed By: #### L 502.0250, L501.9520, L500.4050, L100.0100 #### [facility] [address] [place], [address] Erythrocyte distribution width (RBC) [Ratio] 11.9 % Normal 11.6-14.6 [facility] Comment on above: Performed By: #### L 502.0250, L501.9520, L500.4050, L100.0100 #### [facility] [address] [place], [address] Hematocrit (Bld) [Volume fraction] 43.7 % Normal 40-54 [facility] Comment on above: Performed By: #### L 502.0250, L501.9520, L500.4050, L100.0100 #### [facility] [address] [place], [address] Hemoglobin (Bld) [Mass/Vol] 14.5 g/dL Normal 13.0-16.5 [facility] Comment on above: Performed By: #### L 502.0250, L501.9520, L500.4050, L100.0100 #### [facility] [address] [place], [address] IG% 0.100 Normal 0.0-0.9 [facility] Comment on above: Result Comment: IG% - Immature Granulocytes (promyelocytes, myelocytes and metamyelocytes) > 1% indicates that a LEFT SHIFT is Present. Performed By: #### L 502.0250, L501.9520, L500.4050, L100.0100 #### [facility] [address] [place], [address] Lymphocytes/100 WBC (Bld) 31.6 % Normal 19-41 [facility] Comment on above: Performed By: #### L 502.0250, [id number], L500.4050, L100.0100 #### [facility] [address] [place], [address] MCH (RBC) [Entitic mass] 28.2 pg Normal 27.0-32.0 [facility] Comment on above: Performed By: #### L 502.0250, L501.9520, L500.4050, L100.0100 #### [facility] [address] [place], [address] MCHC (RBC) [Mass/Vol] 33.2 g/dL Normal 32-36 [facility] Comment on above: Performed By: #### L 502.0250, L501.9520, L500.4050, L100.0100 #### [facility] [address] [place], [address] MCV (RBC) [Entitic vol] 84.9 fL Normal 80-94 [facility] Comment on above: Performed By: #### L 502.0250, L501.9520, L500.4050, L100.0100 #### [facility] [address] [place], [address] Monocytes/100 WBC (Bld) 11.3 % High 0-10 [facility] Comment on above: Performed By: #### L 502.0250, L501.9520, L500.4050, L100.0100 #### [facility] [address] [place], [address] Neutrophils/100 WBC (Bld) 52.2 % Normal 47-70 [facility] Comment on above: Performed By: #### L 502.0250, L501.9520, L500.4050, L100.0100 #### [facility] [address] [place], [address] Nucleated RBC (Bld) [#/Vol] 0 10*3/uL Normal 0-5 [facility] Comment on above: Performed By: #### L 502.0250, L501.9520, L500.4050, L100.0100 #### [facility] [address] [place], [address] Platelet mean volume (Bld) [Entitic vol] 10.0 fL Normal 6.2-12.0 [facility] Comment on above: Performed By: #### L 502.0250, L501.9520, L500.4050, L100.0100 #### [facility] [address] [place], [address] Platelets (Bld) [#/Vol] 342 10*3/uL Normal 150-450 [facility] Comment on above: Performed By: #### L 502.0250, L501.9520, L500.4050, L100.0100 #### [facility] [address] [place], [address] RBC (Bld) [#/Vol] 5.15 10*6/uL Normal 4.6-6.2 [facility] Comment on above: Performed By: #### L 502.0250, [id number], L500.4050, L100.0100 #### [facility] [address] [place], [address] RDW SD 36.8 fl Normal 35.1-43.9 [facility] Comment on above: Performed By: #### L 502.0250, [id number], L500.4050, L100.0100 #### [facility] [address] [place], [address] WBC (Bld) [#/Vol] 8.1 10*3/uL Normal 4.4-11.0 [facility] Comment on above: Performed By: #### L 502.0250, L501.9520, L500.4050, L100.0100 #### [facility] [address] [place], [address] Comprehensive Metabolic [facility] 02-19-2022 Albumin [Mass/Vol] 3.5 g/dL Normal 3.2-5.0 [facility] Comment on above: Performed By: #### L 502.0250, L501.9520, L500.4050, L100.0100 #### [facility] [address] [place], [address] Albumin/Globulin [Mass ratio] 0.7 {ratio} Low 0.9-2.4 [facility] Comment on above: Performed By: #### L 502.0250, L501.9520, L500.4050, L100.0100 #### [facility] [address] [place], [address] ALK P 57 U/L Normal 45-117 [facility] Comment on above: Performed By: #### L 502.0250, [id number], L500.4050, L100.0100 #### [facility] [address] [place], [address] ALT [Catalytic activity/Vol] 51 U/L Normal 16-61 [facility] Comment on above: Performed By: #### L 502.0250, L501.9520, L500.4050, L100.0100 #### [facility] [address] [place], [address] AST [Catalytic activity/Vol] 19 U/L Normal 15-37 [facility] Comment on above: Performed By: #### L 502.0250, L501.9520, L500.4050, L100.0100 #### [facility] [address] [place], [address] Bilirubin [Mass/Vol] 0.40 mg/dL Normal 0.20-1.00 [facility] Comment on above: Result Comment: For patients on eltrombopag therapy, use of Dimension [place] TBIL is not recommended. Performed By: #### L 502.0250, L501.9520, L500.4050, L100.0100 #### [facility] [address] [place], [address] BUN/CRE 14.9 RATIO Normal 10-20 [facility] Comment on above: Performed By: #### L 502.0250, L501.9520, L500.4050, L100.0100 #### [facility] [address] [place], [address] CA,Total 9.4 mg/dL Normal 8.5-10.1 [facility] Comment on above: Performed By: #### L 502.0250, L501.9520, L500.4050, L100.0100 #### [facility] [address] [place], [address] Chloride [Moles/Vol] 104 mmol/L Normal 98-107 [facility] Comment on above: Performed By: #### L 502.0250, L501.9520, L500.4050, L100.0100 #### [facility] [address] [place], [address] CO2 [Moles/Vol] 23.0 mmol/L Normal 21.0-32.0 [facility] Comment on above: Performed By: #### L 502.0250, L501.9520, L500.4050, L100.0100 #### [facility] [address] [place], [address] Creatinine [Mass/Vol] 2.76 mg/dL High 0.70-1.30 [facility] Comment on above: Result Comment: The validity of the calculated GFR GFRAA in patients over 70 years has not been determined. Clinical correlation is essential. Performed By: #### L 502.0250, L501.9520, L500.4050, L100.0100 #### [facility] [address] [place], [address] EST GFR - AA 37 mL/min Low >60 [facility] Comment on above: Result Comment: Afri can [place] GFR Calc Performed By: #### L 502.0250, L501.9520, L500.4050, L100.0100 #### [facility] [address] [place], [address] GAP 11 Normal 5-15 [facility] Comment on above: Performed By: #### L 502.0250, L501.9520, L500.4050, L100.0100 #### [facility] [address] [place], [address] GFR/1.73 sq M.predicted among non-blacks MDRD (S/P/Bld) [Vol rate/Area] 31 mL/min/{1.73_m2} Low >60 [facility] Comment on above: Result Comment: Non- GFR Calc Performed By: #### L 502.0250, L501.9520, L500.4050, L100.0100 #### [facility] [address] [place], [address] Globulin (S) [Mass/Vol] 4.8 g/dL High 2.2-4.2 [facility] Comment on above: Performed By: #### L 502.0250, L501.9520, L500.4050, L100.0100 #### [facility] [address] [place], [address] Glucose [Mass/Vol] 98 mg/dL Normal 74-106 [facility] Comment on above: Performed By: #### L 502.0250, L501.9520, L500.4050, L100.0100 #### [facility] [address] [place], [address] Potassium [Moles/Vol] 3.8 mmol/L Normal 3.5-5.1 [facility] Comment on above: Performed By: #### L 502.0250, L501.9520, L500.4050, L100.0100 #### [facility] [address] [place], [address] Sodium [Moles/Vol] 138 mmol/L Normal 136-145 [facility] Comment on above: Performed By: #### L 502.0250, L501.9520, L500.4050, L100.0100 #### [facility] [address] [place], [address] T PROT 8.3 g/dL High 6.4-8.2 [facility] Comment on above: Performed By: #### L 502.0250, L501.9520, L500.4050, L100.0100 #### [facility] [address] [place], [address] Urea nitrogen [Mass/Vol] 41 mg/dL High 7-18 [facility] Comment on above: Performed By: #### L 502.0250, L501.9520, L500.4050, L100.0100 #### [facility] [address] [place], [address] Determination of erythrocyte mean corpuscular volume (MCV)on 02-19-2022 MCV (RBC) [Entitic vol] 84.9 fL 80-94 [facility] Work Phone: Hematocrit Auto (Bld) [Volum e fraction]on 02-19-2022 Hematocrit (Bld) [Volume fraction] 43.7 % 40-54 [facility] Work Phone: Laboratory - Chemistry and C hemistry - challengeon 02-19-2022 ALP [Catalytic activity/Vol] 57 U/L 45-117 [facility] Work Phone: ALT [Catalytic activity/Vol] 51 U/L 16-61 [facility] Work Phone: CO2 [Moles/Vol] 23.0 mmol/L 21.0-32.0 [facility] Work Phone: Globulin (S) [Mass/Vol] 4.8 g/dL 2.2-4.2 [facility] Work Phone: Urea nitrogen/Creatinine [Mass ratio] 14.9 mg/mg 10-20 [facility] Work Phone: Laboratory - Hematology and Cell countson 02-19-2022 Erythrocyte distribution width (RBC) [Entitic vol] 36.8 fL 35.1-43.9 [facility] Work Phone: Erythrocyte distribution width (RBC) [Ratio] 11.9 % 11.6-14.6 [facility] Work Phone: [phone] Immature granulocytes/100 WBC (Bld) 0.100 % 0.0-0.9 [facility] Work Phone: Comment on above: IG% - Immature Granu locytes (promyelocytes, myelocytes and metamyelocytes) > 1% indicates that a LEFT SHIFT is Present. MCH (RBC) [Entitic mass] 28.2 pg 27.0-32.0 [facility] Work Phone: [phone] Nucleated RBC/100 WBC (Bld) [Ratio] 0 % 0-5 [facility] Work Phone: [phone] MCHC Auto (RBC) [Mass/Vol]on 02-19-2022 MCHC (RBC) [Mass/Vol] 33.2 g/dL 32-36 [facility] Work Phone: Microalb:Creat Ratio,Random URon 02-19-2022 Creatinine [Mass/Vol] 182.00 mg/dL Normal NO RAN GE EST. [facility] Comment on above: Performed By: #### L 502.0250, L501.9520, L500.4050, L100.0100 #### [facility] [address] [place], [place], [id number] MALB:CRE 161.5 mg/g CRE High <30 mg/g CRE [facility] Comment on above: Performed By: #### L 502.0250, L501.9520, L500.4050, L100.0100 #### [facility] [address] [place], [address] MICROALBUMIN,UR 294.0 mg/L Normal NO RANGE EST. [facility] Comment on above: Performed By: #### L 502.0250, L501.9520, L500.4050, L100.0100 #### [facility] [address] [place], [address] No Panel Informationon 02-19 Estimated GFR (MDRD) Amer 37 mL/min >60 [facility] Work Phone: Comment on above: GFR Calc Estimated GFR (MDRD) Non-Af Amer 31 mL/min >60 [facility] Work Phone: Comment on above: Non- GFR Calc Thyroid Stimulating Hormone (TSH) 4.21 uIU/mL 0.358-3.74 [facility] Work Phone: Urine Microalbumin/Creatinin e Ratio 161.5 mg/g CRE <30 [facility] Work Phone: Platelets bldon 02-19-2022 Platelets (Bld) [#/Vol] 342 10*3/uL 150-450 [facility] Work Phone: Serum or plasma albumin kirti urement (mass/volume)on 02-19-2022 Albumin [Mass/Vol] 3.5 g/dL 3.2-5.0 [facility] Work Phone: [phone] Serum or plasma albumin/glob ulin mass ratioon 02-19-2022 Albumin/Globulin [Mass ratio] 0.7 {ratio} 0.9-2.4 [facility] Work Phone: [phone] Serum or plasma calcium kirti urement (mass/volume)on 02-19-2022 Calcium [Mass/Vol] 9.4 mg/dL 8.5-10.1 [facility] Work Phone: [phone] Serum or plasma creatinine m easurement (mass/volume)on 02-19-2022 Creatinine [Mass/Vol] 2.76 mg/dL 0.70-1.30 [facility] Work Phone: Comment on above: The validity of the calculated GFR & GFRAA in patients over 70 years has not been determined. Clinical correlation is essential. Serum or plasma urea nitroge n measurement (mass/volume)on 02-19-2022 Urea nitrogen [Mass/Vol] 41 mg/dL 7-18 [facility] Work Phone: Thin prep Papanicolaou smear with manual screeningon 02-19-2022 Thin prep Papanicolaou smear with manual screening 19 U/L 15-37 [facility] Work Phone: Thin prep Papanicolaou smear with manual screening 11 5-15 [facility] Work Phone: Thin prep Papanicolaou smear with manual screening 294.0 mg/L NO RANGE EST. [facility] Work Phone: Thyroid Stim Hormone (TSH)on 02-19-2022 TSH 4.21 uIU/mL High 0.358-3.74 [facility] Comment on above: Performed By: #### L 502.0250, L501.9520, L500.4050, L100.0100 #### [facility] [address] [place], [place], [id number] Urine creatinine measurement (mass/volume)on 02-19-2022 Creatinine (U) [Mass/Vol] 182.00 mg/dL NO RANGE EST. [facility] Work Phone: Progress Noteon 05-04-2018 [employer] Authentication Interface Message Text Patient ID: Yehuda Slaughter is a 17 y.o. male. His chiefcomplaint(s) include: Hypertension (kati bp, need refills on meds)Assessment1. Hypertension, unspecified typePlanShanobi was seen today for hypertension.Diagnoses and all orders for this visit:Hypertension, unspecified type- AMB Referral To Nephrology; Future- amLODIPine (NORVASC) 5 MG tablet; Take 1 Tab (5 mg) by mouth daily for 30daysNo follow-ups on file.Discussed need for exercise and modifying diet. Discussed need to continuetaking medication. Discussed getting blood pressure taken in 2 weeks and callback. Discussed need for documenting BP while on medication.SubjectiveHPI Comments: Working about 35 hours a week. Not exercising much. Drinkinglots of water.He is unaccompanied. HypertensionThis problem is chronic.The onset has been gradual. The patient's symptoms have included no fever, nocongestion, no bilateral ear pain and no vomiting. (Denies chest pain,difficulty breathing, dizziness). The previous interventions includemedications.Prima ry Care Review of SystemsObjectiveVital Signs 05/04/18 1549BP: (!) 154/102Weight: (!) 117.1 kgHeight: 175.5 cmBody mass index is 38.02 kg/m .Physical ExamConstitutional: He appears well. He is active. No distress.HENT:Head: Atraumatic.Right Ear: Tympanic membrane normal.Left Ear: Tympanic membrane normal.Mouth/Throat: Mucous membranes are moist.Eyes: Conjunctivae are normal.Cardiovascular: Normal rate and regular rhythm.Heart murmur not heard.Pulmonary/Chest: Breath sounds normal. There is normal air entry.Neurological: He is alert.Vitals reviewed: Blood pressure (!) 154/102, height 175.5 cm, weight (!) 117.1kg. Normal [facility] Progress Noteon 12-14-2017 [employer] Authentication Interface Message Text Patient ID: Yehuda Meraz is a 17 y.o. male. His chief complaint(s)include: Hypertension (blood pressure taken manually)Assessment1. Hypertension, unspecified typePlanShanobi was seen today for hypertension.Diagnoses and all orders for this visit:Hypertension, unspecified typeNo Follow-up on file.Discussed importance of starting HTN medication. Discussed importance of eatinghealthy and exercising as well.SubjectiveHPI Comments: Patient hasn't taken any of the BP medication because he wasworried it would affect him at work.Patient denies any headaches, problems seeing, change in sensation.He is accompanied by his mother.HypertensionPrima ry Care Review of SystemsObjectiveVital Signs 12/14/17 1408BP: (!) 150/98Pulse: 74Temp: 36.3 C (97.3 F)TempSrc: TemporalWeight: (!) 119.4 kgThere is no height or weight on file to calculate BMI.Physical ExamConstitutional: He appears well. He is active. No distress.HENT:Head: Atraumatic.Right Ear: Tympanic membrane normal.Left Ear: Tympanic membrane normal.Mouth/Throat: Mucous membranes are moist.Eyes: Conjunctivae are normal.Cardiovascular: Normal rate and regular rhythm.No murmur heard.Pulmonary/Chest: Breath sounds normal. There is normal air entry.Neurological: He is alert.Vitals reviewed: Blood pressure (!) 150/98, pulse 74, temperature 36.3 C (97.3 F), temperature source Temporal, weight (!) 119.4 kg. Normal [facility] Progress Noteon 11-16-2017 [employer] Authentication Interface Message Text Patient ID: Yehuda Meraz is a 17 y.o. male. His chief complaint(s)include: HypertensionAssessment1. Hypertension, unspecified typePlanShanobi was seen today for hypertension.Diagnoses and all orders for this visit:Hypertension, unspecified type- NIFEdipine (PROCARDIA XL) 30 MG CR tablet; Take 1 Tab (30 mg) by mouthdaily for 30 daysNo Follow-up on file.Discussed labs Patient has not gained any weight Encouraged to exercise Willstart medication and recheck bp in 3 weeks.SubjectiveHPI Comments: Here for recheck of blood pressure.HypertensionThi s problem is new. The duration has been 1 year.The onset has been gradual. The course is unchanging. (Working on diet andexercise.).Primary Care Review of SystemsObjectiveVitals: 11/16/17 1258BP: (!) 150/82Temp: 36.6 C (97.8 F)TempSrc: TemporalWeight: (!) 120.2 kgThere is no height or weight on file to calculate BMI.Physical ExamConstitutional: He appears well. He is active. No distress.HENT:Head: Atraumatic.Right Ear: Tympanic membrane normal.Left Ear: Tympanic membrane normal.Mouth/Throat: Mucous membranes are moist.Eyes: Conjunctivae are normal.Cardiovascular: Normal rate and regular rhythm.No murmur heard.Pulmonary/Chest: Breath sounds normal. There is normal air entry.Neurological: He is alert.Vitals reviewed: Blood pressure (!) 150/82, temperature 36.6 C (97.8 F),temperature source Temporal, weight (!) 120.2 kg. Normal [facility] Progress Noteon 11-01-2017 [employer] Authentication Interface Message Text Patient ID: Yehuda Meraz is a 17 y.o. male. His chief complaint(s)include: No chief complaint on file.Assessment1. Elevated blood pressure reading2. Situational anxietyPlanDiagnoses and all orders for this visit:Elevated blood pressure reading- Urinalysis, Complete [Chemistry & Micro] (Lab Collect); Future- Comprehensive metabolic panel (Lab Collect); Future- Comprehensive metabolic panel (Lab Collect)- Urinalysis, Complete [Chemistry & Micro] (Lab Collect)Situational anxiety- hydrOXYzine (ATARAX) 25 MG tablet; Take 1 Tab (25 mg) by mouth every 6hours as needed for AnxietyReturn in about 2 weeks (around 11/15/2017) for discussion blood pressure.Discussed watching blood pressure after patient has rest of teeth pulled.Patient to get labs done.SubjectiveHPI Comments: Patient had high blood pressure last well visit and at dentaloffice. Patient had 147/100 at dentist office. Patient has lost about 5 poundsFamily history of HTN.Patient did have labs checked last year. creatanine was border line high.Patient denies headaches, passing out, chest pain.He is accompanied by his mother.Primary Care Review of SystemsObjectiveVitals: 11/01/17 1533 11/01/17 1536BP: (!) 176/120 (!) 150/104Pulse: 73Temp: 36.6 C (97.9 F)TempSrc: TemporalWeight: (!) 119.9 kgThere is no height or weight on file to calculate BMI.Physical ExamConstitutional: He appears well. He is active. No distress.obeseHENT:Head: Atraumatic.Right Ear: Tympanic membrane and external ear normal.Left Ear: Tympanic membrane and external ear normal.Nose: Nose normal.Mouth/Throat: Mucous membranes are moist. Abnormal dentition (patient withsockets where teeth were removed).Eyes: Conjunctivae and EOM are normal. Pupils are equal, round, and reactive tolight.Neck: Neck supple. No neck adenopathy.Cardiovascula r: Normal rate, regular rhythm, S1 normal and S2 normal. Pulsesare palpable.Pulmonary/Chest : Effort normal and breath sounds normal.Abdominal: Soft. Bowel sounds are normal.Musculoskeletal: He exhibits no deformity.Neurological: He is alert. He has normal strength. He exhibits normal muscletone.Skin: No rash noted. No cyanosis. No pallor. Skin is warm.Vitals reviewed: Blood pressure (!) 150/104, pulse 73, temperature 36.6 C (97.9 F), temperature source Temporal, weight (!) 119.9 kg. Normal [facility] Vital Signs Date Time Vital Sign Value Performing Clinician Anel nunez 07-20-2024 11:18-0400 Body height 177.8 cm Qi Sherman APRN.MEL Work Phone: [facility] 07-20-2024 11:18-0400 Body mass index (BMI) [Ratio] 37.45 kg/m2 Qi Sherman APRN.CNP Work Phone: [facility] 07-20-2024 11:18-0400 Body weight 118.4 kg Qi Sherman APRN.[facility] Work Phone: [facility] 07-20-2024 11:18-0400 Diastolic blood pressure 80 mm[Hg] Qi Sherman APRN.[employer] Work Phone: [facility] 07-20-2024 11:18-0400 Heart rate 60 /min Qi Sherman APRN.CNP Work Phone: [facility] 07-20-2024 11:18-0400 Systolic blood pressure 135 mm[Hg] Qi Sherman APRN.[facility] Work Phone: [facility] 05-01-2024 10:50-0500 Body height 177.8 cm Kip Clark APRN.[employer] , [facility] Work Phone: [facility] 05-01-2024 10:50-0500 Body mass index (BMI) [Ratio] 37.45 kg/m2 Kip Clark APRN.[employer], DNP Work Phone: [facility] 05-01-2024 10:50-0500 Body weight 118.39 kg Kip Clark APRN.[employer] , DNP Work Phone: [facility] 05-01-2024 10:50-0500 Diastolic blood pressure 102 mm[Hg] Kip Clark PLACEMENT SPECIALIST.LEATHER BELT LOOP CUTTER, DNP Work Phone: [facility] 05-01-2024 10:50-0500 Heart rate 68 /min Kip Clark PLACEMENT SPECIALIST.LEATHER [employer]T LOOP CUTTER , DNP Work Phone: [facility] 05-01-2024 10:50-0500 Respiratory rate 16 /min Kip Clark APRN.LEATHER [employer] LO[employer] CUTTER , DNP Work Phone: [facility] 05-01-2024 10:50-0500 Systolic blood pressure 160 mm[Hg] Kip Clark PLACEMENT SPECIALIST.LEATHER [employer]T LO[employer] CUTTER, DNP Work Phone: [facility] 03-16-2024 11:26-0500 Body height 177.8 cm Qi Sherman APRN.LE[employer]ER [employer]TER Work Phone: [facility] 03-16-2024 11:26-0500 Body mass index (BMI) [Ratio] 37.96 kg/m2 Qi Sherman APRN.LE[employer]ER [employer] C[employer]TER Work Phone: [facility] 03-16-2024 11:26-0500 Body weight 120 kg Qi Sherman APRN.LE[employer]ER [employer] Work Phone: [facility] 03-16-2024 11:26-0500 Diastolic blood pressure 104 mm[Hg] Qi Sherman APRN.LE[employer]ER [employer] C[employer]TER Work Phone: [facility] 03-16-2024 11:26-0500 Heart rate 73 /min Qi Sherman APRN.LE[employer]ER [employer] Work Phone: [facility] 03-16-2024 11:26-0500 Systolic blood pressure 153 mm[Hg] Qi Sherman APRN.LE[employer]ER [employer] C[employer]TER Work Phone: [facility] 11-18-2023 11:23-0400 Body height 177.[address] PLACEMENT SPECIALIST.LEATHER [employer] LO[employer] C[employer]TER Work Phone: [facility] 11-18-2023 11:23-0400 Body mass index (BMI) [Ratio] 38.17 kg/m2 Qi Lane PLACEMENT SPECIALIST.LEATHER [employer] C[employer]TER Work Phone: [facility] 11-18-2023 11:23-0400 Body weight [address] PLACEMENT SPECIALIST.LEATHER [employer] LO[employer] CUTTER Work Phone: [facility] 11-18-2023 11:23-0400 Diastolic blood pressure 84 mm[Hg] Qi Lane PLACEMENT SPECIALIST.LEATHER [employer]T LO[employer] CUTTER Work Phone: [facility] 11-18-2023 11:23-0400 Heart rate 68 /min Qi Lane PLACEMENT SPECIALIST.LEATHER [employer]T LO[employer] CUTTER Work Phone: [facility] 11-18-2023 11:23-0400 Systolic blood pressure 125 mm[Hg] Qi Lane PLACEMENT SPECIALIST.LEATHER [employer]T LOOP CUTTER Work Phone: [facility] 08-12-2023 11:28-0400 Body weight [address] PLACEMENT SPECIALIST.LEATHER [employer] LO[employer] CUTTER Work Phone: [facility] 08-12-2023 11:28-0400 Diastolic blood pressure 99 mm[Hg] Qi Lane PLACEMENT SPECIALIST.LEATHER [employer]T LO[employer] CUTTER Work Phone: [facility] 08-12-2023 11:28-0400 Heart rate 64 /min Qi Lane PLACEMENT SPECIALIST.LEATHER [employer]T LO[employer] CUTTER Work Phone: [facility] 08-12-2023 11:28-0400 Respiratory rate 22 /min Qi Lane PLACEMENT SPECIALIST.LEATHER [employer]T LOOP CUTTER Work Phone: [facility] 08-12-2023 11:28-0400 Systolic blood pressure 147 mm[Hg] Qi Lane PLACEMENT SPECIALIST.LEATHER [employer]T LOOP CUTTER Work Phone: [facility] 01-07-2023 09:31-0400 Body height 177.[address] PLACEMENT SPECIALIST.LEATHER [employer] LO[employer] C[employer]TER Work Phone: [facility] 01-07-2023 09:31-0400 Body weight 113.[address] PLACEMENT SPECIALIST.LEATHER [employer] LO[employer] C[employer]TER Work Phone: [facility] 01-07-2023 09:31-0400 Diastolic blood pressure 102 mm[Hg] Qi Lane PLACEMENT SPECIALIST.LEATHER [employer]T LOOP CUTTER Work Phone: [facility] 01-07-2023 09:31-0400 Heart rate 65 /min Qi Lane PLACEMENT SPECIALIST.LEATHER [employer]T LOOP CUTTER Work Phone: [facility] 01-07-2023 09:31-0400 Systolic blood pressure 156 mm[Hg] Qi Lane PLACEMENT SPECIALIST.LEATHER [employer]T LOOP CUTTER Work Phone: [facility] 08-27-2022 09:22-0400 Body height 177.[address] PLACEMENT SPECIALIST.LEATHER [employer]T LO[employer] CUTTER Work Phone: [facility] 08-27-2022 09:22-0400 Body weight 113.[address] PLACEMENT SPECIALIST.LEATHER [employer]T LO[employer] CUTTER Work Phone: [facility] 08-27-2022 09:22-0400 Diastolic blood pressure 116 mm[Hg] Qi Lane PLACEMENT SPECIALIST.LEATHER [employer]T LOOP CUTTER Work Phone: [facility] 08-27-2022 09:22-0400 Heart rate 70 /min Qi Lane PLACEMENT SPECIALIST.LEATHER [employer]T LO[employer] CUTTER Work Phone: [facility] 08-27-2022 09:22-0400 Systolic blood pressure 161 mm[Hg] Qi Lane PLACEMENT SPECIALIST.LEATHER [employer]T LOOP CUTTER Work Phone: [facility] 07-10-2022 09:00-0500 Body weight 113.4 kg Nikki Ware MD Work Phone: [facility] 07-10-2022 09:00-0500 Diastolic blood pressure 122 mm[Hg] Nikki Ware MD Work Phone: [facility] 07-10-2022 09:00-0500 Heart rate 74 /min Nikki Ware MD Work Phone: [facility] 07-10-2022 09:00-0500 Systolic blood pressure 173 mm[Hg] Nikki Ware MD Work Phone: [facility] Encounters Encounter Date Encounter Type Care Provider Facility Start: 09-13-2024 End: 09-13-2024 Refill Qi Sherman APRN.LEATHER [employer] C[employer]TER Work Phone: [facility] Comment on above: Refill Request Start: 2024 End: 2024 Refill Nikki Ware MD Work Phone: [facility] Comment on above: Refill Request Start: 07-20-2024 End: 07-20-2024 ambulatory QI SHERMAN Facility:[facility] Start: 07-20-2024 End: 07-20-2024 Patient encounter procedure Qi Sherman PLACEMENT SPECIALIST.LEATHER [employer] C[employer]TER Work Phone: [facility] Medicine Comment on above: Benign hypertension with chronic kidney disease, stage III (HCC) (Primary Dx); Stage 3b chronic kidney disease (HCC); Proteinuria, unspecified type; Vitamin D deficiency; Kidney stone Start: 06-21-2024 End: 06-21-2024 Telephone encounter Ruth Austin RN [facility] Comment on above: Patient Update (HTN) Start: 06-12-2024 End: 06-12-2024 ambulatory Ruth Austin RN [facility] Start: 06-12-2024 End: 06-12-2024 Coordination of care plan Ruth Austin RN [facility] Comment on above: Care Coordination (H [place]) Start: 06-05-2024 End: 06-05-2024 Telephone encounter Ruth Austin RN [facility] Comment on above: Patient Update (HTN) Start: 05-17-2024 End: 05-17-2024 ambulatory Qi Sherman APRN.LEATHER [employer] CUTTER Work Phone: [facility] Medicine Comment on above: Medication efficacy Start: 05-16-2024 End: 05-16-2024 Refill Qi Sherman APRN.LEATHER [employer] C[employer]TER Work Phone: [facility] Comment on above: Refill Request Start: 05-01-2024 End: 05-01-2024 ambulatory KIP CLARK Facility:[facility] Start: 05-01-2024 End: 05-01-2024 Patient encounter procedure Kip Clark PLACEMENT SPECIALIST.MEL, AGNIESZKA Work Phone: Urology Comment on above: Renal calculus, righ t (Primary Dx); Vitamin D deficiency; Essential (primary) hypertension; Hypertensive nephrosclerosis, stage 1 through stage 4 or unspecified chronic kidney disease Start: 04-23-2024 End: 04-24-2024 Refill Qi Sherman PLACEMENT SPECIALIST.LEATHER [employer] C[employer]TER Work Phone: [facility] Comment on above: Refill Request Start: 04-23-2024 End: 04-26-2024 Refill Qi Sherman APRN.MEL Work Phone: [facility] Comment on above: Refill Request Start: 03-22-2024 End: 03-22-2024 Orders Only iQ Sherman APRN.LEATHER [employer] CUTTER Work Phone: [facility] Medicine Comment on above: Kidney stones (Prima ry Dx) Start: 03-20-2024 End: 03-20-2024 ambulatory [facility] Facility:[facility] Start: 03-20-2024 End: 03-20-2024 Subsequent hospital visit by physician [facility] Work Phone: Radiology Comment on above: Flank pain [R10.9] Start: 03-16-2024 End: 03-16-2024 ambulatory [facility] Facility:[facility] Start: 03-16-2024 End: 03-16-2024 Patient encounter procedure Qi Sherman APRN.LEATHER [employer] LO[employer] CUTTER Work Phone: [facility]ney Medicine Comment on above: Stage 3b chronic kid saima disease (HCC) (Primary Dx); Benign hypertension with chronic kidney disease, stage III (HCC); Flank pain; Proteinuria, unspecified type; Vitamin D deficiency Start: 03-03-2024 End: 03-03-2024 ambulatory QI SHERMAN Facility:[facility] Start: 02-08-2024 End: 02-08-[address] PLACEMENT SPECIALIST.[facility] Work Phone: Kidney Medicine Comment on above: Refill Request Start: 01-15-2024 End: 01-17-[address] PLACEMENT SPECIALIST.[facility] Work Phone: [facility] Comment on above: Refill Request Start: 12-17-2023 Refill Qi L Hyl and PLACEMENT SPECIALIST.LEATHER [employer] LO[employer] CUTTER Work Phone: [facility] Medicine Comment on above: Refill Request Start: 11-23-2023 Refill Qi L Hyl and PLACEMENT SPECIALIST.[facility] Work Phone: [facility] Medicine Start: 11-18-2023 End: 11-18-[address] Facility:[facility] Start: 11-18-2023 End: 11-18-2023 Patient encounter procedure Qi L Lane PLACEMENT SPECIALIST.[facility] Work Phone: [facility] Medicine Comment on above: Stage 3b chronic kid saima disease (HCC) (Primary Dx); Proteinuria, unspecified type; Benign hypertension with chronic kidney disease, stage III (HCC); Vitamin D deficiency; Hypophosphatemia Start: 11-17-2023 Refill Qi L Hyl and PLACEMENT SPECIALIST.[facility] Work Phone: [facility] Comment on above: Refill Request Start: 11-10-2023 Refill Qi L Hyl and PLACEMENT SPECIALIST.[facility] Work Phone: [facility] Medicine Comment on above: Refill Request Start: 10-27-2023 Refill Karen Davisbrady NOBLE Work Phone: [facility] Medicine Comment on above: Refill Request Start: 08-12-2023 End: 08-12-[address] Facility:[facility] Start: 08-12-2023 End: 08-12-2023 Patient encounter procedure Qi L Lane PLACEMENT SPECIALIST.LEATHER [employer] C[employer]TER Work Phone: [facility] Medicine Comment on above: Stage 3b chronic kid saima disease (HCC) (Primary Dx); Proteinuria, unspecified type; Benign hypertension with chronic kidney disease, stage III (HCC); Vitamin D deficiency; Hypophosphatemia Start: 07-29-2023 Refill Qi L Hyl and PLACEMENT SPECIALIST.[facility] Work Phone: Kidney [facility] Comment on above: Refill Request Start: 05-13-2023 End: 05-13-[address] PLACEMENT SPECIALIST.[facility] Work Phone: Kidney [facility] Comment on above: phosphorus Start: 05-13-2023 E-mail encounter fro m caregiver Qi L Lane PLACEMENT SPECIALIST.LEATHER [employer] LO[employer] CUTTER Work Phone: [facility] Start: 04-19-2023 Refill Qi L Hyl and PLACEMENT SPECIALIST.[facility] Work Phone: Kidney [facility] Comment on above: Refill Request Start: 04-14-2023 Refill Nikki zhao MD Work Phone: Kidney [facility] Comment on above: Refill Request Start: 04-05-2023 Refill Qi L Hyl and PLACEMENT SPECIALIST.[facility] Work Phone: Kidney [facility] Comment on above: Refill Request Start: 03-29-2023 Refill Qi L Hyl and PLACEMENT SPECIALIST.[facility] Work Phone: Kidney [facility] Comment on above: Refill Request Start: 03-25-2023 ambulatory Qi L Hyl and PLACEMENT SPECIALIST.[facility] Work Phone: Kidney [facility] Comment on above: BP Start: 03-15-2023 Refill Nikki zhao MD Work Phone: Kidney [facility] Comment on above: Refill Request Start: 03-06-2023 Refill Qi L Hyl and PLACEMENT SPECIALIST.[facility] Work Phone: Kidney [facility] Comment on above: Refill Request Start: 02-05-2023 Refill Qi L Hyl and PLACEMENT SPECIALIST.[employer] Work Phone: [facility] Start: 01-26-2023 ambulatory Qi L Hyl and PLACEMENT SPECIALIST.[employer] Work Phone: [facility] Comment on above: Dosage error Refill Request Start: 01-12-2023 Refill Nikki zhao MD Work Phone: [facility] Comment on above: Refill Request Start: 01-07-2023 End: 01-07-2023 Patient encounter procedure Qi Sherman PLACEMENT SPECIALIST.LE[employer] Work Phone: [facility] Comment on above: Benign hypertension with chronic kidney disease, stage III (HCC) (Primary Dx); Stage 3b chronic kidney disease (HCC); Proteinuria, unspecified type Start: 12-24-2022 Refill Qi Luz Elena Magallanes and PLACEMENT SPECIALIST.LEATHER [employer] C[employer]TER Work Phone: [facility] Comment on above: Refill Request Start: 12-24-2022 Refill Nikki zhao MD Work Phone: [facility] Comment on above: Refill Request Start: 11-13-2022 Refill Nikki zhao MD Work Phone: [facility] Comment on above: Refill Request Start: 10-22-2022 Refill Nikki zhao MD Work Phone: [facility] Comment on above: Refill Request Start: 10-16-2022 ambulatory Nikki zhao MD Work Phone: [facility] Comment on above: Abnormal swelling in the abdomen Start: 09-21-2022 Refill Nikki zhao MD Work Phone: [facility] Comment on above: Refill Request Start: 09-09-2022 Refill Nikki zhao MD Work Phone: [facility] Comment on above: Refill Request Start: 08-27-2022 End: 08-27-2022 Patient encounter procedure Qi Sherman PLACEMENT SPECIALIST.LEATHER [employer] Work Phone: [facility] Medicine Comment on above: Benign hypertension with chronic kidney disease, stage III (HCC) (Primary Dx); Stage 3b chronic kidney disease (HCC); Proteinuria, unspecified type; Vitamin D deficiency Start: 08-08-2022 Refill Nikki zhao MD Work Phone: [facility] Comment on above: Refill Request Start: 08-02-2022 ambulatory Nikki zhao MD Work Phone: [facility] Comment on above: Blood pressure Start: 07-10-2022 End: 07-10-2022 Patient encounter procedure Nikki Ware MD Work Phone: [facility] Comment on above: Stage 3b chronic kid saima disease (HCC) (Primary Dx); Vitamin D deficiency; Proteinuria, unspecified type; Essential (primary) hypertension Start: 05-14-2022 Chart abstracting Nikki ramirez MD Work Phone: [facility] Comment on above: Received Outside Med ical Records Start: 05-14-2022 Telephone encounter Nikki Ware MD Work Phone: [facility] Comment on above: Appointment Start: 04-20-2022 End: 04-20-2022 ambulatory [facility] Work Phone: Start: 04-20-2022 End: 04-20-2022 Patient encounter procedure [facility] Start: 02-19-2022 End: 02-19-2022 ambulatory [facility] Facility:[facility] Start: 02-19-2022 Patient encounter procedure [facility] Start: 05-04-2018 End: 05-04-2018 Patient encounter procedure [facility] Start: 12-14-2017 End: 12-14-2017 Patient encounter procedure [facility] Start: 11-16-2017 End: 11-16-2017 Patient encounter procedure [facility] Start: 11-01-2017 End: 11-01-2017 Patient encounter procedure [facility] Procedures Date Procedure Procedure Detail Performing Clinician Start: 05-01-2024 Urnls dip stick/tabl et rgnt auto w/o microscopy Kip Clark APRN.LEATHER BELT LOOP CUTTER, DNP Work Phone: Plan of Treatment Date Care Activity Detail Author Start: 03-03-2025 Creatinine measurement Serum Creatin ine [facility] Start: 01-08-2025 Influenza vaccination Influenz a Vaccine (Season Ended) [facility] Start: 12-07-2024 End: 12-07-2024 Patient encounter procedure 12/07/2024 11:30 AM EDT Office Visit Kidney Medicine [address] [place] [address] Qi Sherman, PLACEMENT SPECIALIST.LEATHER [employer]T LO[employer] CUTTER [address] [place] [address] 4 month Follow up Kidney Medicine Comment on above: 4 month Follow up Start: 08-11-2024 Complete blood count Hemoglobin/Narendra tocrit [facility] Start: 08-11-2024 Creatinine measurement Serum Creatin ine [facility] Start: 07-20-2024 End: 10-19-2024 25-hydroxyvitamin D3 [Mass/volume] in Serum or Plasma VITAMIN D 25 HYDROXY Lab Routine Benign hypertension with chronic kidney disease, stage III (HCC) Stage 3b chronic kidney disease (HCC) Proteinuria, unspecified type Vitamin D deficiency Kidney stone Expected: 07/20/2024, Expires: 10/19/2024 [facility] Comment on above: Expected: 07/20/2024 , Expires: 10/19/2024 Start: 07-20-2024 End: 10-19-2024 CBC panel - Blood by Automated count COMPLETE BLOOD COUNT Lab Routine Benign hypertension with chronic kidney disease, stage III (HCC) Stage 3b chronic kidney disease (HCC) Proteinuria, unspecified type Vitamin D deficiency Kidney stone Expected: 07/20/2024, Expires: 10/19/2024 [facility] Work Phone: Comment on above: Expected: 07/20/2024 , Expires: 10/19/2024 Start: 07-20-2024 End: 10-19-2024 Creatinine [Mass/volume] in Urine collected for unspecified duration CREATININE RANDOM URINE Lab Routine Benign hypertension with chronic kidney disease, stage III (HCC) Stage 3b chronic kidney disease (HCC) Proteinuria, unspecified type Vitamin D deficiency Kidney stone Expected: 07/20/2024, Expires: 10/19/2024 [facility] Comment on above: Expected: 07/20/2024 , Expires: 10/19/2024 Start: 07-20-2024 End: 10-19-2024 Parathyrin.intact [Mass/volume] in Serum or Plasma PTH INTACT Lab Routine Benign hypertension with chronic kidney disease, stage III (HCC) Stage 3b chronic kidney disease (HCC) Proteinuria, unspecified type Vitamin D deficiency Kidney stone Expected: 07/20/2024, Expires: 10/19/2024 [facility] Comment on above: Expected: 07/20/2024 , Expires: 10/19/2024 Start: 07-20-2024 End: 10-19-2024 Protein [Mass/volume] in Urine PROTEIN RANDOM URINE Lab Routine Benign hypertension with chronic kidney disease, stage III (HCC) Stage 3b chronic kidney disease (HCC) Proteinuria, unspecified type Vitamin D deficiency Kidney stone Expected: 07/20/2024, Expires: 10/19/2024 [facility] Comment on above: Expected: 07/20/2024 , Expires: 10/19/2024 Start: 07-20-2024 End: 10-19-2024 Renal function 2000 panel - Serum or Plasma RENAL FUNCTION PANEL Lab Routine Benign hypertension with chronic kidney disease, stage III (HCC) Stage 3b chronic kidney disease (HCC) Proteinuria, unspecified type Vitamin D deficiency Kidney stone Expected: 07/20/2024, Expires: 10/19/2024 [facility] Comment on above: Expected: 07/20/2024 , Expires: 10/19/2024 Start: 07-20-2024 End: 07-20-2024 Patient encounter procedure 07/20/2024 11:30 AM EDT Office Visit Kid[facility] Medicine [address] [place] [address] Qi Sherman, PLACEMENT SPECIALIST.LEATHER [employer] LO[employer] C[employer]TER [address] [place] [address] Follow Up Kidney Medicine Comment on above: Follow Up Start: 07-14-2024 End: 10-13-2024 25-hydroxyvitamin D3 [Mass/volume] in Serum or Plasma VITAMIN D 25 HYDROXY Lab Routine Stage 3b chronic kidney disease (HCC) Benign hypertension with chronic kidney disease, stage III (HCC) Flank pain Proteinuria, unspecified type Vitamin D deficiency Expected: 07/14/2024, Expires: 10/13/2024 [facility] Comment on above: Expected: 07/14/2024 , Expires: 10/13/2024 Start: 07-14-2024 End: 10-13-2024 CBC panel - Blood by Automated count COMPLETE BLOOD COUNT Lab Routine Stage 3b chronic kidney disease (HCC) Benign hypertension with chronic kidney disease, stage III (HCC) Flank pain Proteinuria, unspecified type Vitamin D deficiency Expected: 07/14/2024, Expires: 10/13/2024 [facility] Comment on above: Expected: 07/14/2024 , Expires: 10/13/2024 Start: 07-14-2024 End: 10-13-2024 Parathyrin.intact [Mass/volume] in Serum or Plasma PTH INTACT Lab Routine Stage 3b chronic kidney disease (HCC) Benign hypertension with chronic kidney disease, stage III (HCC) Flank pain Proteinuria, unspecified type Vitamin D deficiency Expected: 07/14/2024, Expires: 10/13/2024 [facility] Comment on above: Expected: 07/14/2024 , Expires: 10/13/2024 Start: 07-14-2024 End: 10-13-2024 Renal function 2000 panel - Serum or Plasma RENAL FUNCTION PANEL Lab Routine Stage 3b chronic kidney disease (HCC) Benign hypertension with chronic kidney disease, stage III (HCC) Flank pain Proteinuria, unspecified type Vitamin D deficiency Expected: 07/14/2024, Expires: 10/13/2024 [facility] Comment on above: Expected: 07/14/2024 , Expires: 10/13/2024 Start: 06-14-2024 End: 06-14-2024 Patient encounter procedure 06/14/2024 11:00 AM EST Office Visit Urology [address] [place] [address] Bc Martins PA-C [address] [place], [place] [id number] Consult to Urology Urology Comment on above: Consult to Urology Start: 06-01-2024 End: 06-01-2024 Patient encounter procedure 06/01/2024 10:00 AM EST Appointment Radiology [address] [place] [address] [facility] Comment on above: X Ray Start: 05-13-2024 Complete blood count Hemoglobin/Narendra tocrit [facility] Start: 05-13-2024 Creatinine measurement Serum Creatin ine [facility] Start: 05-08-2024 End: 05-31-2025 XR Abdomen Supine and Upright XR ABDOMEN 1V SUPINE Radiology Routine Renal calculus, right Expected: 05/08/2024, Expires: 05/31/2025 [facility] Comment on above: Expected: 05/08/2024 , Expires: 05/31/2025 Start: 05-01-2024 End: 07-31-2024 Calcium [Mass/volume] in Serum or Plasma CALCIUM, TOTAL Lab Routine Renal calculus, right Expected: 05/01/2024, Expires: 07/31/2024 [facility] Work Phone: Comment on above: Expected: 05/01/2024 , Expires: 07/31/2024 Start: 05-01-2024 End: 07-31-2024 Calcium.ionized [Moles/volume] in Blood CALCIUM, IONIZED Lab Routine Renal calculus, right Expected: 05/01/2024, Expires: 07/31/2024 [facility] Comment on above: Expected: 05/01/2024 , Expires: 07/31/2024 Start: 05-01-2024 End: 07-31-2024 Comprehensive metabolic 2000 panel - Serum or Plasma COMPREHENSIVE METABOLIC PANEL Lab Routine Renal calculus, right Expected: 05/01/2024, Expires: 07/31/2024 [facility] Comment on above: Expected: 05/01/2024 , Expires: 07/31/2024 Start: 05-01-2024 End: 07-31-2024 Urate [Mass/volume] in Serum or Plasma URIC ACID Lab Routine Renal calculus, right Expected: 05/01/2024, Expires: 07/31/2024 [facility] Comment on above: Expected: 05/01/2024 , Expires: 07/31/2024 Start: 05-01-2024 End: 05-01-2024 Patient encounter procedure 05/01/2024 11:00 AM EST Office Visit Urology [address] [place] [address] Kip Clark APRN.LEATHER [employer] C[employer]TER, DNP [address] [place], [place] [address] Kidney Stones Urology Comment on above: Kidney Stones Start: 03-20-2024 End: 03-20-2024 Patient encounter procedure 03/20/2024 1:00 PM EST Appointment Radiology [address] [place], [place] [id number] CKD Radiology Comment on above: CKD Start: 03-16-2024 End: 03-16-2024 Patient encounter procedure 03/16/2024 11:30 AM EST Office Visit Kidney Medicine [address] [place] [id number] Qi Sherman APRN.LE[employer] [address] [place] [address] Follow Up Kidney Medicine Comment on above: Follow Up Start: 01-09-2024 Covid-19 Vaccine ( season) Covid-19 Vaccine ( season) [facility] Start: 01-09-2024 Covid-19 Vaccine ( season) Covid-19 Vaccine () [facility] Start: 01-09-2024 Influenza vaccination [facility] Start: 12-30-2023 SERUM CREATININE SERUM CREATININE [facility] Start: 11-18-2023 End: 02-17-2024 25-hydroxyvitamin D3 [Mass/volume] in Serum or Plasma VITAMIN D 25 HYDROXY Lab Routine Stage 3b chronic kidney disease (HCC) Proteinuria, unspecified type Benign hypertension with chronic kidney disease, stage III (HCC) Vitamin D deficiency Hypophosphatemia Expected: 11/18/2023, Expires: 02/17/2024 [facility] Comment on above: Expected: 11/18/2023 , Expires: 02/17/2024 Start: 11-18-2023 End: 02-17-2024 Creatinine [Mass/volume] in Urine collected for unspecified duration CREATININE RANDOM URINE Lab Routine Stage 3b chronic kidney disease (HCC) Proteinuria, unspecified type Benign hypertension with chronic kidney disease, stage III (HCC) Vitamin D deficiency Hypophosphatemia Expected: 11/18/2023, Expires: 02/17/2024 [facility] Comment on above: Expected: 11/18/2023 , Expires: 02/17/2024 Start: 11-18-2023 End: 02-17-2024 Microalbumin/Creatinine [Mass Ratio] in Urine ALBUMIN/CREATININE RATIO, URINE Lab Routine Stage 3b chronic kidney disease (HCC) Proteinuria, unspecified type Benign hypertension with chronic kidney disease, stage III (HCC) Vitamin D deficiency Hypophosphatemia Expected: 11/18/2023, Expires: 02/17/2024 [facility] Comment on above: Expected: 11/18/2023 , Expires: 02/17/2024 Start: 11-18-2023 End: 02-17-2024 Protein [Mass/volume] in Urine PROTEIN RANDOM URINE Lab Routine Stage 3b chronic kidney disease (HCC) Proteinuria, unspecified type Benign hypertension with chronic kidney disease, stage III (HCC) Vitamin D deficiency Hypophosphatemia Expected: 11/18/2023, Expires: 02/17/2024 [facility] Comment on above: Expected: 11/18/2023 , Expires: 02/17/2024 Start: 11-18-2023 End: 02-17-2024 Renal function 2000 panel - Serum or Plasma RENAL FUNCTION PANEL Lab Routine Stage 3b chronic kidney disease (HCC) Proteinuria, unspecified type Benign hypertension with chronic kidney disease, stage III (HCC) Vitamin D deficiency Hypophosphatemia Expected: 11/18/2023, Expires: 02/17/2024 [facility] Work Phone: Comment on above: Expected: 11/18/2023 , Expires: 02/17/2024 Start: 11-18-2023 End: 11-18-2023 Patient encounter procedure 11/18/2023 11:30 AM EDT Office Visit Kidney Medicine [id number] [place] [address] Qi Sherman APRN.[employer] [address] [place] [address] 3 month Follow Up [facility]ney Medicine Comment on above: 3 month Follow Up Start: 08-28-2023 SERUM CREATININE SERUM CREATININE [facility] Start: 06-26-2023 HEMOGLOBIN/HEMATOCRIT HEMOGLOBIN/HEM ATOCRIT [facility] Start: 06-26-2023 SERUM CREATININE SERUM CREATININE [facility] Start: 05-17-2023 End: 08-16-2023 Hemoglobin A1c in Blood HGB A1C Lab Routine Proteinuria, unspecified type Stage 3b chronic kidney disease (HCC) Expected: 05/17/2023, Expires: 08/16/2023 [facility] Work Phone: Comment on above: Expected: 05/17/2023 , Expires: 08/16/2023 Start: 05-17-2023 End: 08-16-2023 Renal function 2000 panel - Serum or Plasma RENAL FUNCTION PANEL Lab Routine Proteinuria, unspecified type Stage 3b chronic kidney disease (HCC) Expected: 05/17/2023, Expires: 08/16/2023 [facility] Work Phone: Comment on above: Expected: 05/17/2023 , Expires: 08/16/2023 Start: 05-10-2023 Behavioral Health Screening Behavioral Health Screening [facility] Start: 05-10-2023 Depression Assessment Depression Ass essment [facility] Start: 04-08-2023 End: 06-08-2023 25-hydroxyvitamin D3 [Mass/volume] in Serum or Plasma VITAMIN D 25 HYDROXY Lab Routine Benign hypertension with chronic kidney disease, stage III (HCC) Stage 3b chronic kidney disease (HCC) Proteinuria, unspecified type Expected: 04/08/2023, Expires: 06/08/2023 [facility] Work Phone: Comment on above: Expected: 04/08/2023 , Expires: 06/08/2023 Start: 04-08-2023 End: 06-08-2023 ALBUMIN/CREAT RATIO RND UR ALBUMIN/CREAT RATIO RND UR Lab Routine Benign hypertension with chronic kidney disease, stage III (HCC) Stage 3b chronic kidney disease (HCC) Proteinuria, unspecified type Expected: 04/08/2023, Expires: 06/08/2023 [facility] Work Phone: Comment on above: Expected: 04/08/2023 , Expires: 06/08/2023 Start: 04-08-2023 End: 06-08-2023 CBC panel - Blood by Automated count CBC Lab Routine Benign hypertension with chronic kidney disease, stage III (HCC) Stage 3b chronic kidney disease (HCC) Proteinuria, unspecified type Expected: 04/08/2023, Expires: 06/08/2023 [facility] Work Phone: Comment on above: Expected: 04/08/2023 , Expires: 06/08/2023 Start: 04-08-2023 End: 06-08-2023 Creatinine [Mass/volume] in Urine collected for unspecified duration CREATININE RANDOM UR Lab Routine Benign hypertension with chronic kidney disease, stage III (HCC) Stage 3b chronic kidney disease (HCC) Proteinuria, unspecified type Expected: 04/08/2023, Expires: 06/08/2023 [facility] Work Phone: Comment on above: Expected: 04/08/2023 , Expires: 06/08/2023 Start: 04-08-2023 End: 06-08-2023 Parathyrin.intact [Mass/volume] in Serum or Plasma PTH INTACT BLD Lab Routine Benign hypertension with chronic kidney disease, stage III (HCC) Stage 3b chronic kidney disease (HCC) Proteinuria, unspecified type Expected: 04/08/2023, Expires: 06/08/2023 [facility] Work Phone: Comment on above: Expected: 04/08/2023 , Expires: 06/08/2023 Start: 04-08-2023 End: 06-08-2023 Protein [Mass/volume] in Urine PROTEIN RANDOM UR Lab Routine Benign hypertension with chronic kidney disease, stage III (HCC) Stage 3b chronic kidney disease (HCC) Proteinuria, unspecified type Expected: 04/08/2023, Expires: 06/08/2023 [facility] Work Phone: Comment on above: Expected: 04/08/2023 , Expires: 06/08/2023 Start: 04-08-2023 End: 06-08-2023 Renal function 2000 panel - Serum or Plasma RENAL FUNCTION PANEL Lab Routine Benign hypertension with chronic kidney disease, stage III (HCC) Stage 3b chronic kidney disease (HCC) Proteinuria, unspecified type Expected: 04/08/2023, Expires: 06/08/2023 [facility] Work Phone: Comment on above: Expected: 04/08/2023 , Expires: 06/08/2023 Start: 01-08-2023 Covid-19 Vaccine () Covid-19 Vaccine () [facility] Start: 01-08-2023 Influenza vaccination [facility] Start: 08-20-2022 End: 10-20-2022 Complement C3 [Mass/volume] in Serum or Plasma C3 COMPLEMENT BLD Lab Routine Stage 3b chronic kidney disease (HCC) Expected: 08/20/2022, Expires: 10/20/2022 [facility] Work Phone: Comment on above: Expected: 08/20/2022 , Expires: 10/20/2022 Start: 08-20-2022 End: 10-20-2022 Complement C4 [Mass/volume] in Serum or Plasma C4 COMPLEMENT BLD Lab Routine Stage 3b chronic kidney disease (HCC) Expected: 08/20/2022, Expires: 10/20/2022 [facility] Work Phone: Comment on above: Expected: 08/20/2022 , Expires: 10/20/2022 Start: 08-20-2022 End: 10-20-2022 CYSTATIN C CYSTATIN C Lab Routine Stage 3b chronic kidney disease (HCC) Expected: 08/20/2022, Expires: 10/20/2022 [facility] Work Phone: Comment on above: Expected: 08/20/2022 , Expires: 10/20/2022 Start: 08-20-2022 End: 10-20-2022 Renal function 2000 panel - Serum or Plasma RENAL FUNCTION PANEL Lab Routine Stage 3b chronic kidney disease (HCC) Expected: 08/20/2022, Expires: 10/20/2022 [facility] Work Phone: Comment on above: Expected: 08/20/2022 , Expires: 10/20/2022 Start: 06-10-2022 End: 05-14-2023 25-hydroxyvitamin D3 [Mass/volume] in Serum or Plasma VITAMIN D 25 HYDROXY Lab Routine Stage 3b chronic kidney disease (HCC) Vitamin D deficiency Expected: 06/10/2022, Expires: 05/14/2023 [facility] Work Phone: Comment on above: Expected: 06/10/2022 , Expires: 05/14/2023 Start: 06-10-2022 End: 05-14-2023 CBC W Auto Differential panel - Blood CBC + DIFF Lab Routine Stage 3b chronic kidney disease (HCC) Vitamin D deficiency Expected: 06/10/2022, Expires: 05/14/2023 [facility] Work Phone: Comment on above: Expected: 06/10/2022 , Expires: 05/14/2023 Start: 06-10-2022 End: 05-14-2023 Parathyrin.intact [Mass/volume] in Serum or Plasma PTH INTACT BLD Lab Routine Stage 3b chronic kidney disease (HCC) Vitamin D deficiency Expected: 06/10/2022, Expires: 05/14/2023 [facility] Work Phone: Comment on above: Expected: 06/10/2022 , Expires: 05/14/2023 Start: 06-10-2022 End: 05-14-2023 Protein/Creatinine [Mass Ratio] in Urine PROTEIN CREATININE RATIO Lab Routine Stage 3b chronic kidney disease (HCC) Vitamin D deficiency Expected: 06/10/2022, Expires: 05/14/2023 [facility] Work Phone: Comment on above: Expected: 06/10/2022 , Expires: 05/14/2023 Start: 06-10-2022 End: 05-14-2023 Renal function 2000 panel - Serum or Plasma RENAL FUNCTION PANEL Lab Routine Stage 3b chronic kidney disease (HCC) Vitamin D deficiency Expected: 06/10/2022, Expires: 05/14/2023 [facility] Work Phone: Comment on above: Expected: 06/10/2022 , Expires: 05/14/2023 Start: 06-10-2022 End: 05-14-2023 Urinalysis complete panel - Urine URINALYSIS WITH MICROSCOPIC, REFLEX CULTURE Lab Routine Stage 3b chronic kidney disease (HCC) Vitamin D deficiency Expected: 06/10/2022, Expires: 05/14/2023 [facility] Work Phone: Comment on above: Expected: 06/10/2022 , Expires: 05/14/2023 Start: 05-10-2022 DEPRESSION ASSESSMENT DEPRESSION ASS ESSMENT [facility] Start: 01-08-2022 Influenza vaccination INFLUENZA (#1) [facility] Start: 07-19-2021 COVID-19 VACCINE (4 - Booster for Pfizer series) COVID-19 VACCINE (4 - Booster for Pfizer series) [facility] Start: 07-19-2021 COVID-19 VACCINE (4 - Pfizer series) COVID-19 VACCINE (4 - Pfizer series) [facility] Start: 12-09-2020 Urine microalbumin profile DTaP,Tdap,Td Vaccine (7 - Td or Tdap) [facility] Start: 11-24-2020 COVID-19 VACCINE (3 - Booster for Pfizer series) COVID-19 VACCINE (3 - Booster for Pfizer series) [facility] Start: 07-23-2018 Urine microalbumin profile [facility] Start: 07-23-2017 ANNUAL PCP TEAM SUPERVISOR COOLER SERVICE ESTEFANÍA DISEASE VISIT ANNUAL PCP TEAM CHRONIC DISEASE VISIT [facility] Start: 07-23-2017 Anxiety Screening Anxiety Screening [facility] Start: 07-23-2017 BP CONTROLLED (<130/80) BP CONTROLLE D (<130/80) [facility] Start: 07-23-2017 Depression Screening Depression Scre ening [facility] Start: 07-23-2017 HEPATITIS C SCREENING HEPATITIS C [facility] Start: 07-23-2017 Hepatitis C screening Hepatitis C [facility] Start: 07-23-2017 HIV SCREENING HIV SCREENING [facility] Start: 07-23-2017 HIV screening HIV Screening [facility] Start: 2015 Meningococcal B Vaccine: Consider Based On Risk (1 of 2 - Patient Seeks Protection) Meningococcal B Vaccine: Consider Based On Risk (1 of 2 - Patient Seeks Protection) [facility] Start: 2015 MENINGOCOCCAL B: Consider based on risk (1 of 2 - Patient Seeks Protection) MENINGOCOCCAL B: Consider based on risk (1 of 2 - Patient Seeks Protection) [facility] Start: 07-23-2013 PEDS TO ADULT TRANSITION ANNUAL ASSESSMENT PEDS TO ADULT TRANSITION ANNUAL ASSESSMENT [facility] Start: 2011 PEDS TO ADULT TRANSITION INITIAL DISCUSSION PEDS TO ADULT TRANSITION INITIAL DISCUSSION [facility] Start: 07-23-2010 HPV VACCINE (1 - Mal e 2-dose series) HPV VACCINE (1 - Male 2-dose series) [facility] Start: 07-23-2009 MENINGOCOCCAL B: Consider based on risk (1 of 2 - Risk Bexsero 2-dose series) MENINGOCOCCAL B: Consider based on risk (1 of 2 - Risk Bexsero 2-dose series) [facility] Start: 07-23-2008 HPV VACCINE (1 - Mal e 2-dose series) HPV VACCINE (1 - Male 2-dose series) [facility] Start: 1999 HEPATITIS B (1 of 3 - 3-dose series) HEPATITIS B (1 of 3 - 3-dose series) [facility] Start: 1999 Hepatitis B Vaccine (1 of 3 - 3-dose series) Hepatitis B Vaccine (1 of 3 - 3-dose series) [facility] Urinalysis complete panel - Urine URINALYSIS, WITH MICROSCOPIC Lab Routine Renal calculus, right Hypertensive nephrosclerosis, stage 1 through stage 4 or unspecified chronic kidney disease 05/01/2024 11:47 AM EST [facility] End: 04-15-2025 US Kidney - bilateral and Urinary bladder US KIDNEY/BLADDER Radiology Routine Flank pain 1 Occurrences starting 03/16/2024 until 04/15/2025 [facility] Work Phone: Comment on above: 1 Occurrences starti ng 03/16/2024 until 04/15/2025 US Kidney - bilatera l and Urinary bladder US KIDNEY/BLADDER Radiology Routine Flank pain 03/20/2024 1:31 PM EST [facility] Immunizations Immunization Date Immunization Notes Care Provider Fa william 09-29-2020 Covid (Pfizer) [facility] 09-08-2020 Covid (Pfizer) [facility] Payers Date Payer Category Payer Self-pay [id number] 2021 Private Health Insurance [id number] 2021 Unknown [id number] 2021 Unknown [id number] 1999 Unknown [id number] 1999 Unknown [id number] 1999 Unknown [id number] 1999 Unknown [id number] Unknown [id number] Unknown [employer] [id number] Unknown [id number] Unknown [id number] Social History Date Type Detail Facility Start: 05-14-2021 End: 05-14-2021 Tobacco smoking status NHIS Unknown if ever smoked [facility] Start: 1999 Sex Assigned At Male C [facility] Start: 04-24-2022 Tobacco smoking stat us NHIS Never smoked tobacco [facility] Start: 04-24-2022 Tobacco use and exposure Smoke less tobacco non-user [facility] Start: 10-29-2022 End: 03-16-2024 History of Social function [facility] Start: 10-29-2022 End: 03-16-2024 Tobacco use panel [facility] Start: 04-20-2022 Gender identity Identifies as male gender (finding) [facility] Start: 04-20-2022 Sexual orientation Choose not to dis close [facility] National Score (1-10 0), lower number is lower risk 80 [facility] Clinical Notes 05-14-2022 to 07-20-2024 Patient InstructionsQi Sherman APRN.[employer] - 07/20/2024 11:17 AM EDTTelephone Encounter - Ruth Austin RN - 06/21/2024 9:37 AM ESTTelephone Encounter - Ruth Austin RN - 06/21/2024 9:37 AM EST Note Date & Type Note Facility 07-20-2024 Instructions Qi Sherman APRN.[employer] - 07/20/2024 11:22 AM EDT - 2000mg sodium restriction and reviewed foods that are high in sodium and how to monitor sodium intake. - Increased water intake (2.5-3L/day or 80-100 ounces/day) to include drinking water before bedtime to ensure nighttime urination, and to drink water when he/she wakes up to urinate. - Oxalate restriction and reviewed the list of high oxalate foods (spinach, nuts, rhubarb, chocolate, etc.). Avoid high doses of vitamin C and should avoid drinking large amounts of orange juice, dark tea in high quantities, avoid caffeinated beverages and chocolate - Avoid dark leda that contain phosphoric acid - Preferred juices are lemon/limes (4-6 ounces/day). Cantaloupe may also help to increase citrate in the urine which helps in the prevention of kidney stones - not to restrict calcium intake but should not use calcium supplements. - decrease amount of protein (mainly animal) in diet -Instructions for 24-hour urine collection 1) Keep jug on ice or in fridge while collecting 2) When you wake up the first morning before you start the collection (e.g. 6:59am), urinate into the toilet, not into the jug 3) Start the collection right after you urinate in the morning (e.g. 7:00am). All of your urine goes into the jug. If you forget and go into the toilet, dump out the urine and start the test over the next chance you have. 4) Collect ALL of your urine for 24 hours, no more and no less. If you think you will fill up the jug you were provided before the 24-hour shaneka, you will need another jug. If you stop before the 24-hour period or collect urine for longer than 24 hours, the test will be completely unhelpful. 5) Right before you finish the collection (e.g. 6:59am the next day), urinate into the jug. 6) Plan to turn the jug in on the day it is completed documented in this encounter [facility] 07-20-2024 Note HNO ID: [id number] Author: QI SHERMAN APRN.MEL Service: ? Author Type: Nurse Practitioner Type: Progress Notes Filed: 07/20/2024 11:40 Note Text: Pt is a 23 yo male here for follow up of CKD stage 3 in the setting of HTN nephrosclerosis-biopsy in 2020. HTN: Known high BP 2016. Treated with anti-anxiety medicine. First BP med started in end of 2020. Hospitalized with HTN urgency, discharged on BP medications. Lisinopril/HCTZ stopped due to MARGOTH. He was last seen 03/2024. At that time he felt he had passed a kidney stone-renal US with R kidney stone < 5mm-he has established with urology. 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 PAST MEDICAL HISTORY Diagnosis Date CKD (chronic kidney disease), stage III (HCC) HTN (hypertension) General no fever no weight loss no fatigue no night sweats Head / Neck no metallic or bitter taste Cardiac no chest pain or pressure no palpitations no dizziness no lightheadedness no syncope Vascular no edema Pulmonary no dyspnea on exertion no cough GI no loss of appetite no nausea no emesis no diarrhea no constipation no abdominal pain no decreased urine no pink or red urine no flank pain no groin pain Heme no easy bruising Other no daytime somnolence Creatinine Date Value Ref Range Status 03/03/2024 2.23 (H) 0.73 - 1.22 mg/dL Final 08/12/2023 2.09 (H) 0.73 - 1.22 mg/dL Final 05/13/2023 2.17 (H) 0.73 - 1.22 mg/dL Final Potassium Date Value Ref Range Status 03/03/2024 3.8 3.7 - 5.1 mmol/L Final 08/12/2023 3.9 3.7 - 5.1 mmol/L Final 05/13/2023 4.0 3.7 - 5.1 mmol/L Final Exam General: NAD, alert Lungs: CTA bilaterally Heart: RRR without murmur or rub Extremities: No edema BP - standardized method Pulse 1 BP #1: 135/85 Pulse #1: 59 beats/min 2 BP #2 : 143/78 Pulse #2 : 62 beats/min 3 BP #3 : 126/78 Pulse #3 : 59 beats/min Average Average BP: 135/80 Average Pulse: 60 beats/min Orthostatic vitals Supine Sitting Standing BP cuff location BP cuff location: Left upper arm BP cuff size BP cuff size: large adult Comments for BP values First BP (right) First BP (left) Impression/plan CKD stage 3-proteinuric, in the setting of HTN as noted above as well as past MARGOTH (AJITH associated). Baseline Scr is ~ 2.1-2.3-reviewed egfr and renal preservation as well as low Na diet and importance of BP control. He is not using NSAIDs. On ARB. He lost insurance and has not had SGLT 2 inhibitor. He states he didn't feel well on it. Since he is on ARB will hold off on restarting it. Update labs. ZUQ-rfzjzhpqlb-yn changes Heme-Hgb WNL 08/2023 Vitamin D deficiency-on supplement-update labs Kidney stones-as seen on imaging. Established with urology. Reviewed stone instructions with pt and placed them on AV summary. [facility]. Plan [facility] Labs and urine Follow up 4 months Qi Sherman APRN.[facility] 07-20-2024 History of Presen t illness Narrative Pt is a 23 yo male here for follow up of CKD stage 3 in the setting of HTN nephrosclerosis-biopsy in [place]. HTN: Known high BP 2016. Treated with anti-anxiety medicine. First BP med started in end of 2020. Hospitalized with HTN urgency, discharged on BP medications. Lisinopril/HCTZ stopped due to MARGOTH. He was last seen 03/2024. At that time he felt he had passed a kidney stone-renal US with R kidney stone < 5mm-he has established with urology. 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 PAST MEDICAL HISTORY Diagnosis Date CKD (chronic kidney disease), stage III (HCC) HTN (hypertension) General no fever no weight loss no fatigue no night sweats Head / Neck no metallic or bitter taste Cardiac no chest pain or pressure no palpitations no dizziness no lightheadedness no syncope Vascular no edema Pulmonary no dyspnea on exertion no cough GI no loss of appetite no nausea no emesis no diarrhea no constipation no abdominal pain no decreased urine no pink or red urine no flank pain no groin pain Heme no easy bruising Other no daytime somnolence Creatinine Date Value Ref Range Status 03/03/2024 2.23 (H) 0.73 - 1.22 mg/dL Final 08/12/2023 2.09 (H) 0.73 - 1.22 mg/dL Final 05/13/2023 2.17 (H) 0.73 - 1.22 mg/dL Final Potassium Date Value Ref Range Status 03/03/2024 3.8 3.7 - 5.1 mmol/L Final 08/12/2023 3.9 3.7 - 5.1 mmol/L Final 05/13/2023 4.0 3.7 - 5.1 mmol/L Final Exam General: NAD, alert Lungs: CTA bilaterally Heart: RRR without murmur or rub Extremities: No edema BP - standardized method Pulse 1 BP #1: 135/85 Pulse #1: 59 beats/min 2 BP #2 : 143/78 Pulse #2 : 62 beats/min 3 BP #3 : 126/78 Pulse #3 : 59 beats/min Average Average BP: 135/80 Average Pulse: 60 beats/min Orthostatic vitals Supine Sitting Standing BP cuff location BP cuff location: Left upper arm BP cuff size BP cuff size: large adult Comments for BP values First BP (right) First BP (left) Impression/plan CKD stage 3-proteinuric, in the setting of HTN as noted above as well as past MARGOTH (AJITH associated). Baseline Scr is ~ 2.1-2.3-reviewed egfr and renal preservation as well as low Na diet and importance of BP control. He is not using NSAIDs. On ARB. He lost insurance and has not had SGLT 2 inhibitor. He states he didn't feel well on it. Since he is on ARB will hold off on restarting it. Update labs. SES-bbrtjsuwyw-iv changes Heme-Hgb WNL 08/2023 Vitamin D deficiency-on supplement-update labs Kidney stones-as seen on imaging. Established with urology. Reviewed stone instructions with pt and placed them on AV summary. [facility]. Plan [facility] Labs and urine Follow up 4 months Qi Sherman APRN.[employer] documented in this encounter [facility] 06-21-2024 Telephone encounter Note Summary: HTN CKD SPECIALIZED COORDINATION QUICK NOTE Provider Action/FYI Telephone call Patient identified by name and date : No Telephone call placed to pt. My call went to voiceUndeskil. Left msg identifying myself & the reason for my call (to obtain b/p readings since starting Losartan). Requested a return call @ his earliest convenience. Ruth Austin RN [facility] 06-21-2024 Miscellaneous Notes Summary: HTN CKD SPECIALIZED COORDINATION QUICK NOTE Provider Action/FYI Telephone call Patient identified by name and date : No Telephone call placed to pt. My call went to voicemail. Left msg identifying myself & the reason for my call (to obtain b/p readings since starting Losartan). Requested a return call @ his earliest convenience. Ruth Austin RN documented in this encounter [facility] 06-14-2024 Note HNO ID: [id number] Author: RUTH AUSTIN RN Service: ? Author Type: Registered Nurse Type: Progress Notes Filed: 06/14/2024 08:40 Note Text: Summary: HTN Received a text msg back from pt stating that he just started the Losartan AND was told to wait a wk after starting it before checking b/p. Informed pt that I would check back with him in a wk. AND also reminded to have his Labs drawn 1 wk after starting the Losartan. Ruth Austin RN [facility] 06-13-2024 Note HNO ID: [id number] Author: RUTH AUSTIN RN Service: ? Author Type: Registered Nurse Type: Progress Notes Filed: 06/13/2024 14:30 Note Text: Summary: HTN CKD SPECIALIZED COORDINATION QUICK NOTE Provider Action/FYI Text message Patient identified by name and date : No Text msg sent to pt requesting his most recent b/p readings. Also asked if he has started the Losartan. Ruth Austin RN [facility] 06-12-2024 Note HNO ID: [id number] Author: RUTH AUSTIN RN Service: ? Author Type: Registered Nurse Type: Progress Notes Filed: 06/12/2024 10:48 Note Text: Summary: HTN CKD SPECIALIZED COORDINATION QUICK NOTE Provider Action/FYI Telephone call Patient identified by name and date : No Telephone call placed to pt. My call went to voice mail. Left msg identifying myself AND the reason for my call. Requested a return call @ his earliest convenience to provide b/p readings per our previous telephone call. Ruth Austin RN [facility] 06-12-2024 History of Presen t illness Narrative Summary: HTN CKD SPECIALIZED COORDINATION QUICK NOTE Provider Action/FYI Telephone call Patient identified by name and date : No Telephone call placed to pt. My call went to voice mail. Left msg identifying myself & the reason for my call. Requested a return call @ his earliest convenience to provide b/p readings per our previous telephone call. Ruth Austin RN documented in this encounter [facility] 06-12-2024 Note Patient Outreach (EKTA DFCatherineW) YEHUDA SLAUGHTER ([id number]) 89 M Date Time Provider Department 06/12/24 RUTH AUSTIN During your visit today, we recorded the following information about you: Ruth Austin RN 06/12/2024 10:48 AM Signed CKD SPECIALIZED COORDINATION QUICK NOTE Provider Action/FYI Telephone call Patient identified by name and date : No Telephone call placed to pt. My call went to voice mail. Left msg identifying myself AND the reason for my call. Requested a return call @ his earliest convenience to provide b/p readings per our previous telephone call. CARMELINA Elias Lora, RN 06/13/2024 2:30 PM Signed CKD SPECIALIZED COORDINATION QUICK NOTE Provider Action/FYI Text message Patient identified by name and date : No Text msg sent to pt requesting his most recent b/p readings. Also asked if he has started the Losartan. CARMELINA Elias Lora, RN 06/14/2024 8:40 AM Addendum Received a text msg back from pt stating that he just started the Losartan AND was told to wait a wk after starting it before checking b/p. Informed pt that I would check back with him in a wk. AND also reminded to have his Labs drawn 1 wk after starting the Losartan. Ruth Austin RN Allergies As of Date: 06/12/2024 Noted Allergy Reaction SHELLFISH CONTAINING PRODUCTS 03/10/2011 4 - Hives 12 - Shortness of Breath 7 - Swelling 14 - Other: See Comments Date Reviewed: 05/01/2024 Reviewed by: Kip Clark APRN.LEATHER BELT LOOP CUTTER, DNP - Fully Assessed Reason for Visit: Care Coordination [3491] Cmt: HTN Prescriptions as of 06/14/2024 - losartan (COZAAR) 25 mg tablet Take 1 tablet by mouth once daily. - doxazosin (CARDURA) 8 mg tablet Take 1 tablet by mouth two times a day. - verapamil SR (CALAN SR) 240 mg CR tablet Take 1 tablet by mouth two times a day. - cloNIDine HCl (CATAPRES) 0.3 mg tablet Take 1 tablet by mouth three times a day. - dapagliflozin propanediol (FARXIGA) 10 mg tablet Take 1 tablet by mouth daily with breakfast. - carvedilol (COREG) 12.5 mg tablet Take 1 tablet by mouth two times a day. - ergocalciferol 50,000 unit capsule (VITAMIN D2, DRISDOL) Take 1 capsule by mouth one time a week. Problem List As Of Date 06/12/2024 Noted Resolved Abnormal results of kidney function studies [R9*04/20/2022 Attention deficit disorder [F98.8] 12/30/2011 Essential (primary) hypertension [I10] 04/20/2022 BMI (body mass index), pediatric, > 99% for age*08/04/2016 Proteinuria [R80.9] 04/24/2022 Renal calculus, right [N20.0] 05/01/2024 Hypertensive nephrosclerosis [I12.9] 05/01/2024 Encounter Status:Closed by RUTH AUSTIN on 06/12/24 [facility] 06-05-2024 Telephone encounter Note Summary: HTN Images from the original note were not included. CKD SPECIALIZED COORDINATION QUICK NOTE Provider Action/FYI Telephone call Patient identified by name and date : Yes Spoke with Yehuda this morning. He informed me that he has not yet started the Losartan. He said that he's not sure if his insurance went through. I looked up the Losartan on [employer] & informed him of multiple pharmacies that he could get it through for $7.77 - $9.00/month. He told me that he has not been checking his b/p because he's busy & doesn't have time. I informed him of the seriousness of his high b/p. I also suggested that he check his b/p 1-2 hours after taking his medications. Made arrangements for a call again in 1 wk to obtain the b/p's. CARMELINA Elias Jennifer L, APRN.Ruth Landon, CARMELINA Can you call him and enroll him for BP mgmt please Thank you [facility] 06-05-2024 Miscellaneous Notes Summary: HTN Images from the original note were not included. CKD SPECIALIZED COORDINATION QUICK NOTE Provider Action/FYI Telephone call Patient identified by name and date : Yes Spoke with Yehuda this morning. He informed me that he has not yet started the Losartan. He said that he's not sure if his insurance went through. I looked up the Losartan on [employer] & informed him of multiple pharmacies that he could get it through for $7.77 - $9.00/month. He told me that he has not been checking his b/p because he's busy & doesn't have time. I informed him of the seriousness of his high b/p. I also suggested that he check his b/p 1-2 hours after taking his medications. Made arrangements for a call again in 1 wk to obtain the b/p's. CARMELINA Elias Jennifer L, PLACEMENT SPECIALIST.Ruth Landon RN Can you call him and enroll him for BP mgmt please Thank you documented in this encounter [facility] 05-17-2024 Telephone encounter Note Farxiga application was placed in outgoing mail today. Prescription portion was placed in provider mailbox for review. MC message was sent to pt to let him know that application was put in mail. ZAIRE Flores [facility] 05-17-2024 Miscellaneous Notes Farxiga application was placed in outgoing mail today. Prescription portion was placed in provider mailbox for review. MC message was sent to pt to let him know that application was put in mail. ZAIRE Flores documented in this encounter [facility] 05-01-2024 Instructions Kip Clark APRN.AGNIESZKA LEAL - 05/01/2024 11:20 AM EST Follow up with Vaughn Dietrich with our kidney stones team. Schedule lab work and xray. General stone prevention guidelines: Proper daytime & night time hydration. Recommend 2.5-3 L of fluid daily. Low sodium diet, < 2000 mg/d. Good fruit & vegetable intake- 5 a day for good citrate intake. Adequate calcium intake, 2-3 servings daily. Return to the clinic or seek care at Express[facility]Urgent Care for any worsening signs or symptoms: such as fevers, chills, worsening pain, nausea. For severe symptoms seek care at the closest ER. Plan of care, medicaiton side effects and management reviewed with patient. Diet Recommendations for Kidney Stones - General Recommendations Drink plenty of fluid: 2-3 quarts/day. This includes any type of fluid such as water, coffee and lemonade which have been shown to have a beneficial effect with the exception of grapefruit juice and soda. Drinking 1/2 cup of lemon juice concentrate diluted in water each day, or the juice of two jaiden, can increase urine citrate and likely reduce kidney stone risk. This will help produce less concentrated urine and ensure a good urine volume of at least 2.5L/day Limit foods with high oxalate content Spinach, many berries, chocolate, wheat bran, nuts, beets, tea and rhubarb should be eliminated from your diet intake Eat enough dietary calcium Three servings of dairy per day will help lower the risk of calcium stone formation. Eat with meals. Avoid extra calcium supplements Calcium supplements should be individualized by your physician and registered kidney dietitian Eat a moderate amount of protein High protein intakes will cause the kidneys to excrete more calcium therefore this may cause more stones to form in the kidney Avoid high salt intake High sodium intake increases calcium in the urine which increases the chances of developing stones Low salt diet is also important to control blood pressure. Avoid high doses of vitamin C supplements It is recommend to take 60mg/day of vitamin C based on the [place] Dietary Reference Intake Excess amounts of 1000mg/day or more may produce more oxalate in the body Healthy Habits: Recommend regular physical activity, nutrition and healthy eating habits. Consume a variety of foods every day focusing on fruits, vegetables and lean meats). Eat foods low in fat, saturated fat and cholesterol. Eat a limited amount of salt and sodium. Drink adequate amounts of water and limit sugary drinks. Exercise portion control in meal selection. Establish a mindset of a wellness approach to health. Thank you for allowing me to provide your care today. I look forward to seeing you again and maintaining your health. Kip Clark APRN.AGNIESZKA LEAL documented in this encounter [facility] 05-01-2024 History of Presen t illness Narrative UROLOGY HISTORY & PHYSICAL EXAM SERVICE DATE: 05/01/2024 REFERRING PROVIDER: Qi Sherman [address] [place] [address] PCP: No primary care provider on file. Consultation requested by Dr. Qi Sherman [address] [place] [id number] for an opinion regarding kidney stones and my final recommendations will be communicated back to the requesting physician by way of shared Medical record or letter via US mail. SUBJECTIVE CHIEF COMPLAINT: kidney stones HISTORY OF PRESENT ILLNESS: Mr. Slaughter is a 23 year old male who presents for stone consult. Past med hx: HTN, obesity, Vit D def, CKD stage 3 in the setting of HTN nephrosclerosis Followed by TEO Sherman in Nephrology for his CKD. Passed his first kidney stone last month. Had burning sensation when urinating but did not actually see stone pass. No burning sensation at this time. Passed on his own. Drinks about 48 oz of water per day RBUS completed showing: -Calculus: 3 mm echogenic shadowing nonobstructing lower pole calculus. Additional 4 mm echogenic shadowing nonobstructing midpole calculus. No hydronephrosis Patient currently denies fever, chills, nausea, vomiting, gross hematuria, or renal colic. Feeling well. BP elevated today. He did not take his BP meds this morning. Previous stone procedures: None Personal/Family hx: Stone: None Gout: None DM: Mother PAST MEDICAL HISTORY Diagnosis Date CKD (chronic kidney disease), stage III (HCC) HTN (hypertension) No past surgical history on file. No family history on file. Social History Tobacco Use Smoking status: Never Smokeless tobacco: Never Current Outpatient Medications Medication Sig verapamil SR (CALAN SR) 240 mg CR tablet Take 1 tablet by mouth two times a day. cloNIDine HCl (CATAPRES) 0.3 mg tablet Take 1 tablet by mouth three times a day. doxazosin (CARDURA) 8 mg tablet Take 1 tablet by mouth two times a day. dapagliflozin propanediol (FARXIGA) 10 mg tablet Take 1 tablet by mouth daily with breakfast. carvedilol (COREG) 12.5 mg tablet Take 1 tablet by mouth two times a day. ergocalciferol 50,000 unit capsule (VITAMIN D2, DRISDOL) Take 1 capsule by mouth one time a week. No current facility-administered medications for this visit. ALLERGIES: ALLERGIES Allergen Reactions Shellfish Containin* Hives, Shortness of Breath, Swelling, Other: See Comments ===== LABS: UA: Latest Ref Rng 05/01/2024 GLUCOSE UA (POCT) Negative mg/dL >=1000 ! BILIRUBIN UA (POCT) Negative Negative KETONE UA (POCT) Negative mg/dL Negative SPECIFIC GRAVITY UA (POCT) 1.005 - 1.030 >=1.030 HEMOGLOBIN/BLOOD UA (POCT) Negative Trace-lysed ! PH UA (POCT) 4.5 - 8.0 5.5 PROTEIN UA (POCT) Negative mg/dL 30 ! UROBILINOGEN UA (POCT) Normal E.U./dL 0.2 NITRITE UA (POCT) Negative Negative LEUKOCYTES UA (POCT) Negative Negative COLOR UA (POCT) Yellow CLARITY UA (POCT) Clear Legend: ! Abnormal Specific [place], Ur Date Value Ref Range Status 03/16/2024 1.031 (H) 1.005 - 1.030 Final Glucose, Urine Date Value Ref Range Status 03/16/2024 4+ (A) Trace, Negative Final Bilirubin, Urine Date Value Ref Range Status 03/16/2024 Negative Negative Final Ketones, Urine Date Value Ref Range Status 03/16/2024 Negative Negative, Trace Final Hemoglobin/Blood,Ur Date Value Ref Range Status 03/16/2024 Negative Negative, Trace Final Protein, Urine Date Value Ref Range Status 03/16/2024 1+ (A) Trace, Negative Final Nitrites Date Value Ref Range Status 03/16/2024 Negative Negative Final WBC, Urine Date Value Ref Range Status 03/16/2024 0-5 /HPF 0-5 /HPF Final 24 HOUR URINE: Appointment on 03/16/2024 Component Date Value Ref Range Status Color 03/16/2024 Light Yellow Yellow Final Clarity 03/16/2024 Clear Clear Final Glucose, Urine 03/16/2024 4+ (A) Trace, Negative Final Bilirubin, Urine 03/16/2024 Negative Negative Final Ketones, Urine 03/16/2024 Negative Negative, Trace Final Specific [place], Ur 03/16/2024 1.031 (H) 1.005 - 1.030 Final Hemoglobin/Blood,Ur 03/16/2024 Negative Negative, Trace Final pH, Urine 03/16/2024 6.0 5.0 - 8.0 Final Protein, Urine 03/16/2024 1+ (A) Trace, Negative Final Urobilinogen 03/16/2024 Normal Normal Final Nitrites 03/16/2024 Negative Negative Final Leuk Esterase 03/16/2024 Negative Negative, 25 [place]/uL Final WBC, Urine 03/16/2024 0-5 /HPF 0-5 /HPF Final RBC, Urine 03/16/2024 0-3 /HPF 0-3 /HPF Final Protein, Urine Random 03/16/2024 42 (H) 0 - 20 mg/dL Final Creatinine, Ur Random (UCRR) 03/16/2024 148.4 20.0 - 300.0 mg/dL Final Protein/Creat Ratio 03/16/2024 0.28 (H) <0.15 mg/mg Final Adult Proteinuria Categories: <0.15 mg/mg is considered normal to mildly increased 0.15 - 0.50 mg/mg is considered moderately increased >0.50 mg/mg is considered severely increased KDIGO. (2013). KDIGO 2012 Clinical Practice Guideline for the Evaluation and Management of Chronic Kidney Disease. Official Journal of the International Society of Nephrology, 3(1), 1-150. Latest Ref Rng 05/13/2023 08/12/2023 05/01/2024 Albumin 3.9 - 4.9 g/dL 4.2 4.1 Calcium 8.5 - 10.2 mg/dL 9.3 9.7 Phosphorus 2.7 - 4.8 mg/dL 1.3 (L) 2.3 (L) Glucose 74 - 99 mg/dL 186 (H) 121 (H) BUN 9 - 24 mg/dL 24 25 (H) Creatinine 0.73 - 1.22 mg/dL 2.17 (H) 2.09 (H) Sodium 136 - 144 mmol/L 140 138 Potassium 3.7 - 5.1 mmol/L 4.0 3.9 Chloride 97 - 105 mmol/L 102 101 CO2 22 - 30 mmol/L 27 28 Anion Gap 9 - 18 mmol/L 11 9 eGFR >=60 mL/min/1.73m 43 (L) 45 (L) GLUCOSE UA (POCT) Negative mg/dL >=1000 ! BILIRUBIN UA (POCT) Negative Negative KETONE UA (POCT) Negative mg/dL Negative SPECIFIC GRAVITY UA (POCT) 1.005 - 1.030 >=1.030 HEMOGLOBIN/BLOOD UA (POCT) Negative Trace-lysed ! PH UA (POCT) 4.5 - 8.0 5.5 PROTEIN UA (POCT) Negative mg/dL 30 ! UROBILINOGEN UA (POCT) Normal E.U./dL 0.2 NITRITE UA (POCT) Negative Negative LEUKOCYTES UA (POCT) Negative Negative COLOR UA (POCT) Yellow CLARITY UA (POCT) Clear WBC 3.70 - 11.00 k/uL 7.46 RBC 4.20 - 6.00 m/uL 5.38 Hemoglobin 13.0 - 17.0 g/dL 15.2 Hematocrit 39.0 - 51.0 % 44.4 MCV 80.0 - 100.0 fL 82.5 MCH 26.0 - 34.0 pg 28.3 MCHC 30.5 - 36.0 g/dL 34.2 RDW-CV 11.5 - 15.0 % 12.7 Platelet Count 150 - 400 k/uL 312 MPV 9.0 - 12.7 fL 10.4 Absolute nRBC <0.01 k/uL <0.01 Hemoglobin A1C 4.3 - 5.6 % 6.3 (H) Estimated Average Glucose mg/dL 134 Vitamin D 25 Hydroxy 31.0 - 80.0 ng/mL 21.8 (L) PTH, Intact 15 - 65 pg/mL 54 Creatinine, Ur Random (UCRR) 20.0 - 300.0 mg/dL 321.6 (H) Protein, Urine Random 0 - 20 mg/dL 72 (H) Legend: (L) Low (H) High ! Abnormal Glucose (mg/dL) Date Value 03/03/2024 98 BUN (mg/dL) Date Value 03/03/2024 20 Creatinine (mg/dL) Date Value 03/03/2024 2.23 (H) Sodium (mmol/L) Date Value 03/03/2024 139 Potassium (mmol/L) Date Value 03/03/2024 3.8 Chloride (mmol/L) Date Value 03/03/2024 99 CO2 (mmol/L) Date Value 03/03/2024 28 Albumin (g/dL) Date Value 03/03/2024 4.3 Calcium, Total (mg/dL) Date Value 03/03/2024 9.7 No results found for: INR ====== IMAGING: Results US KIDNEY/BLADDER (Acc#[id number] 382-[facility]) (Order [id number]) Patient Info Patient Name Sex Yehuda Gurrola ([id number]) Male 2000 03/21/2024 9:34 AM - Radiology, [place] In Impression IMPRESSION: 1. Less than 5 mm nonobstructing right nephrolithiasis. 2. No hydronephrosis Renal Medicine Physician: PSCB Transcribe Date/Time: Mar 21 2024 9:21A Dictated by : ELIEL AGUIRRE MD This examination was interpreted and the report reviewed and electronically signed by: ELIEL AGUIRRE MD on Mar 21 2024 9:32AM EST Results-Findings * * *Final Report* * * DATE OF EXAM: Mar 20 2024 1:31PM WRU [id number] - US KIDNEY/BLADDER / PROCEDURE REASON: Flank pain * * * * Physician Interpretation * * * * EXAMINATION: RENAL ULTRASOUND CLINICAL HISTORY: Flank pain TECHNIQUE: Sonography of the kidneys and urinary bladder was performed. Images were obtained and stored in a permanent archive and interpreted remotely. MQ: [id number] COMPARISON: None RESULT: Right Kidney: -Renal length: 11.0 cm -Parenchyma: Normal parenchymal echogenicity. Normal parenchymal thickness. -Collecting system: No hydronephrosis. -Calculus: 3 mm echogenic shadowing nonobstructing lower pole calculus. Additional 4 mm echogenic shadowing nonobstructing midpole calculus. -Lesion: None. Left Kidney: -Renal length: 11.6 cm -Parenchyma: Normal parenchymal echogenicity. Normal parenchymal thickness. -Collecting system: No hydronephrosis. -Calculus: No echogenic, shadowing calculus. -Lesion: None. Bladder: Partially distended with prevoid bladder volume of 110 mL. No post void residual. Result History US KIDNEY/BLADDER (Order #[id number]) on 03/21/2024 - Order Result History Report Result Information Status Provider Status Final result (03/21/2024 9:34 AM) Reviewed Exam Performed Date and Time 03/20/2024 1:31 PM [facility] DIVISION OF RADIOLOGY [address] [id number] ====== Review of Systems: PAIN ASSESSMENT: CURRENTLY HAVING NO PAIN GENERAL: No weight loss, malaise or fevers GI: No nausea, vomiting, MUSCULOSKELETAL: Negative for generalized joint pain SKIN: Negative for rash HEMATOLOGY/LYMPHOLOGY: Negative for swollen nodes All other systems reviewed and noncontributory Blood pressure 160/102, pulse 68, resp. rate 16, height 177.8 cm (5' 10), weight 118.4 kg (261 lb). Body mass index is 37.45 kg/m . PHYSICAL EXAMINATION: General appearance: Well appearing, alert, in no acute distress, and well-hydrated, well nourished Obese Lungs: no wheezing, non-labored Extremities: Extremities normal. No deformities, edema, or skin discoloration. Musculoskeletal: No joint swelling or deformity ASSESSMENT/PLAN: 1. Renal calculus, right - ICD9: 592.0, ICD10: N20.0 (primary diagnosis) 23 year old male who presents for stone consult. With a past med hx: HTN, obesity, Vit D def, CKD stage 3 in the setting of HTN nephrosclerosis Followed by TEO Sherman in Nephrology for his CKD. Passed his first kidney stone last month. Had burning sensation when urinating but did not actually see stone pass. No burning sensation at this time. Passed on his own. Drinks about 48 oz of water per day. RBUS completed showing: Calculus: 3 mm echogenic shadowing nonobstructing lower pole calculus. Additional 4 mm echogenic shadowing nonobstructing midpole Feeling well. No f/c/n/v. In NAD. Normal exam. UA = glu, trace hem, prot Plan: Refer to our stones team Labs and KUB to assess stone burden Discussed [facility] General stone prevention guidelines: Proper daytime & night time hydration. Recommend 2.5-3 L of fluid daily. Low sodium diet, < 2000 mg/d. Good fruit & vegetable intake- 5 a day for good citrate intake. Adequate calcium intake, 2-3 servings daily. -General stone prevention guidelines: Fluid intake- #1 reason why people form stones - not enough fluid! Recommend increasing water/fluid intake (2.5-3L/day or 80-100 ounces/day), including nighttime hydration. We recommend emptying your bladder and drinking 1-2 glasses of water prior to bed, then getting up at least once during the night to empty your bladder again and drinking 1 more glass of water before returning to bed. All fluids count but water is the best. [place] Intake- Recommend increasing dietary citrate intake. Adding more fruits & vegetables to your diet; in particular citrus fruits (jaiden/limes/lemonade/melons/t omatoes). One can add 4 oz of lemon juice diluted in 32 oz of water daily to start. If diet changes are too difficult we can prescribe a medication, potassium citrate, that can help increase your citrate levels. Sodium intake- We recommend a low sodium diet <2000mg/d. Read food labels, choose low sodium options, avoid canned, frozen or boxed meals, eat more fresh foods and possibly add a fish oil supplement daily (2000mg/d) Calcium intake - Recommend 2-3 servings of calcium per day. Not advisable for stone patients to restrict calcium intake as it is very important for good bone, muscle, and tissue health. - CALCIUM, TOTAL - CALCIUM, IONIZED - URIC ACID - COMPREHENSIVE METABOLIC PANEL - XR ABDOMEN 1V SUPINE - UA DIP, URINE (POC) - CONSULT TO UROLOGY 2. Vitamin D deficiency - ICD9: 268.9, ICD10: E55.9 Chronic - stable 3. Essential (primary) hypertension - ICD9: 401.9, ICD10: I10 Chronic - fair control Did not take BP meds today SERVICE ORDER CLERK was 160/102 - needs to take meds when he gets home follow up with Neph 4. Hypertensive nephrosclerosis, stage 1 through stage 4 or unspecified chronic kidney disease - ICD9: 403.90, ICD10: I12.9 Chronic - fair control Did not take BP meds today SERVICE ORDER CLERK was 160/102 - needs to take meds when he gets home follow up with Neph Kip Clark DNP, CNP Department of Urology [facility] documented in this encounter [facility] 05-01-2024 Note HNO ID: [id number] Author: KIP CLARK APRN.AGNIESZKA LEAL Service: ? Author Type: Nurse Practitioner Type: Progress Notes Filed: 05/01/2024 11:38 Note Text: UROLOGY HISTORY AND PHYSICAL EXAM SERVICE DATE: 05/01/2024 REFERRING PROVIDER: Qi Sherman [address] [place] [id number] PCP: No primary care provider on file. Consultation requested by Dr. Qi Sherman [address] [place] [id number] for an opinion regarding kidney stones and my final recommendations will be communicated back to the requesting physician by way of shared Medical record or letter via US mail. SUBJECTIVE CHIEF COMPLAINT: kidney stones HISTORY OF PRESENT ILLNESS: Mr. Slaughter is a 23 year old male who presents for stone consult. Past med hx: HTN, obesity, Vit D def, CKD stage 3 in the setting of HTN nephrosclerosis Followed by TEO Sherman in Nephrology for his CKD. Passed his first kidney stone last month. Had burning sensation when urinating but did not actually see stone pass. No burning sensation at this time. Passed on his own. Drinks about 48 oz of water per day RBUS completed showing: -Calculus: 3 mm echogenic shadowing nonobstructing lower pole calculus. Additional 4 mm echogenic shadowing nonobstructing midpole calculus. No hydronephrosis Patient currently denies fever, chills, nausea, vomiting, gross hematuria, or renal colic. Feeling well. BP elevated today. He did not take his BP meds this morning. Previous stone procedures: None Personal/Family hx: Stone: None Gout: None DM: Mother PAST MEDICAL HISTORY Diagnosis Date CKD (chronic kidney disease), stage III (HCC) HTN (hypertension) No past surgical history on file. No family history on file. Social History Tobacco Use Smoking status: Never Smokeless tobacco: Never Current Outpatient Medications Medication Sig verapamil SR (CALAN SR) 240 mg CR tablet Take 1 tablet by mouth two times a day. cloNIDine HCl (CATAPRES) 0.3 mg tablet Take 1 tablet by mouth three times a day. doxazosin (CARDURA) 8 mg tablet Take 1 tablet by mouth two times a day. dapagliflozin propanediol (FARXIGA) 10 mg tablet Take 1 tablet by mouth daily with breakfast. carvedilol (COREG) 12.5 mg tablet Take 1 tablet by mouth two times a day. ergocalciferol 50,000 unit capsule (VITAMIN D2, DRISDOL) Take 1 capsule by mouth one time a week. No current facility-administered medications for this visit. ALLERGIES: ALLERGIES Allergen Reactions Shellfish Containin* Hives, Shortness of Breath, Swelling, Other: See Comments ===== LABS: UA: Latest Ref Rn 05/01/2024 GLUCOSE UA (POCT) Negative mg/dL >=1000 ! BILIRUBIN UA (POCT) Negative Negative KETONE UA (POCT) Negative mg/dL Negative SPECIFIC GRAVITY UA (POCT) 1.005 - 1.030 >=1.030 HEMOGLOBIN/BLOOD UA (POCT) Negative Trace-lysed ! PH UA (POCT) 4.5 - 8.0 5.5 PROTEIN UA (POCT) Negative mg/dL 30 ! UROBILINOGEN UA (POCT) Normal E.U./dL 0.2 NITRITE UA (POCT) Negative Negative LEUKOCYTES UA (POCT) Negative Negative COLOR UA (POCT) Yellow CLARITY UA (POCT) Clear Legend: ! Abnormal Specific [place], Ur Date Value Ref Range Status 03/16/2024 1.031 (H) 1.005 - 1.030 Final Glucose, Urine Date Value Ref Range Status 03/16/2024 4+ (A) Trace, Negative Final Bilirubin, Urine Date Value Ref Range Status 03/16/2024 Negative Negative Final Ketones, Urine Date Value Ref Range Status 03/16/2024 Negative Negative, Trace Final Hemoglobin/Blood,Ur Date Value Ref Range Status 03/16/2024 Negative Negative, Trace Final Protein, Urine Date Value Ref Range Status 03/16/2024 1+ (A) Trace, Negative Final Nitrites Date Value Ref Range Status 03/16/2024 Negative Negative Final WBC, Urine Date Value Ref Range Status 03/16/2024 0-5 /HPF 0-5 /HPF Final 24 HOUR URINE: Appointment on 03/16/2024 Component Date Value Ref Range Status Color 03/16/2024 Light Yellow Yellow Final Clarity 03/16/2024 Clear Clear Final Glucose, Urine 03/16/2024 4+ (A) Trace, Negative Final Bilirubin, Urine 03/16/2024 Negative Negative Final Ketones, Urine 03/16/2024 Negative Negative, Trace Final Specific [place], Ur 03/16/2024 1.031 (H) 1.005 - 1.030 Final Hemoglobin/Blood,Ur 03/16/2024 Negative Negative, Trace Final pH, Urine 03/16/2024 6.0 5.0 - 8.0 Final Protein, Urine 03/16/2024 1+ (A) Trace, Negative Final Urobilinogen 03/16/2024 Normal Normal Final Nitrites 03/16/2024 Negative Negative Final Leuk Esterase 03/16/2024 Negative Negative, 25 [place]/uL Final WBC, Urine 03/16/2024 0-5 /HPF 0-5 /HPF Final RBC, Urine 03/16/2024 0-3 /HPF 0-3 /HPF Final Protein, Urine Random 03/16/2024 42 (H) 0 - 20 mg/dL Final Creatinine, Ur Random (UCRR) 03/16/2024 148.4 20.0 - 300.0 mg/dL Final Protein/Creat Ratio 03/16/2024 0.28 (H) <0.15 mg/mg Final Adult Proteinuria Categories: <0.15 mg/mg is considered normal to mildly i (more content not included)... [facility] 03-22-2024 Telephone encounter Note Images from the original note were not included. Litholink form placed in outgoing on 03/22/24 ZAIRE Flores Jennifer L, APRN.CNP [facility] Pool Mail litholink form [facility] 03-22-2024 Telephone encounter Note ----- Message from Qi Sherman APRN.CNP sent at 03/22/2024 11:49 AM EST ----- Mail litholink form [facility] 03-22-2024 Miscellaneous Notes Images from the original note were not included. Litholink form placed in outgoing on 03/22/24 ZAIRE Flores Jennifer L, APRN.CNP [facility] [place] Mail litholink form ----- Message from Qi Sherman APRN.CNP sent at 03/22/2024 11:49 AM EST ----- Mail litholink form documented in this encounter [facility] 03-20-2024 History of Presen t illness Narrative Radiology Service Progress Note PATIENT NAME: Yehuda Slaughter DATE OF SERVICE: March 20, 2024 TIME: 1:30 PM PATIENT IDENTITY VERIFICATION COMPLETED USING TWO (2) IDENTIFIERS: Name and Date of confirmed by patient verbally. FALL SCREENING: Has the patient had 2 falls in the last year or 1 fall with injury or currently using an Ambulatory Assistive Device (Walker, Cane, Wheelchair, Crutches, etc.)? No PATIENT GENDER DATA: Male PATIENT RELEVANT IMPLANT DATA REVIEWED: Not Applicable PATIENT PRESENTS WITH AN IMPLANTABLE OR ATTACHED REGULATORY AFFAIRS INTERN: No RADIOLOGY DEPARTMENT: Ultrasound PERIPHERAL IV DATA: Not applicable SIGNED BY: Ashley Blandon RDMS March 20, 2024 1:30 PM documented in this encounter [facility] 03-20-2024 Note HNO ID: [id number] Author: ASHLEY BLANDON RDMS Service: ? Author Type: Public Health Microbiologist Type: Progress Notes Filed: 03/20/2024 13:30 Note Text: Radiology Service Progress Note PATIENT NAME: Yehuda Slaughter DATE OF SERVICE: March 20, 2024 TIME: 1:30 PM PATIENT IDENTITY VERIFICATION COMPLETED USING TWO (2) IDENTIFIERS: Name and Date of confirmed by patient verbally. FALL SCREENING: Has the patient had 2 falls in the last year or 1 fall with injury or currently using an Ambulatory Assistive Device (Walker, Cane, Wheelchair, Crutches, etc.)? No PATIENT GENDER DATA: Male PATIENT RELEVANT IMPLANT DATA REVIEWED: Not Applicable PATIENT PRESENTS WITH AN IMPLANTABLE OR ATTACHED REGULATORY AFFAIRS INTERN: No RADIOLOGY DEPARTMENT: Ultrasound PERIPHERAL IV DATA: Not applicable SIGNED BY: Ashley Blandon RDMS March 20, 2024 1:30 PM [facility] 03-16-2024 History of Presen t illness Narrative [facility] DEPART[facility] SERVICE DATE: 03/16/2024 SERVICE TIME: 9:47 AM HPI: Mr. Slaughter is a 23 year old male who presents with with CKD stage 3 in the setting of HTN nephrosclerosis - biopsy in [place]2020. States he passed his first kidney stone about a week ago. Had burning sensation when urinating but did not actually see stone pass. No burning sensation at this time. Passed on his own. Drinks about 48 oz of water per day Blood pressure at home: averaging around 130/80 [place] 11/2023 started Farxiga 10mg everyday HTN: Known high BP 2016. Treated with anti-anxiety medicine. First BP med started in end of 2020. Hospitalized with HTN urgency, discharged on BP medications. Lisinopril/HCTZ stopped due to MARGOTH. PAST MEDICAL HISTORY: PAST MEDICAL HISTORY Diagnosis Date CKD (chronic kidney disease), stage III (HCC) HTN (hypertension) PAST SURGICAL HISTORY: No past surgical history on file. FAMILY HISTORY: No family history on file. SOCIAL HISTORY: Social History Tobacco Use Smoking status: Never Smokeless tobacco: Never MEDICATIONS: cloNIDine HCl (CATAPRES) 0.3 mg tablet Take 1 tablet by mouth three times a day. doxazosin (CARDURA) 8 mg tablet Take 1 tablet by mouth two times a day. dapagliflozin propanediol (FARXIGA) 10 mg tablet Take 1 tablet by mouth daily with breakfast. carvedilol (COREG) 12.5 mg tablet Take 1 tablet by mouth two times a day. verapamil SR (CALAN SR) 240 mg CR tablet Take 1 tablet by mouth two times a day. ergocalciferol 50,000 unit capsule (VITAMIN D2, DRISDOL) Take 1 capsule by mouth one time a week. ALLERGIES: ALLERGIES Allergen Reactions Shellfish Containin* Hives, Shortness of Breath, Swelling, Other: See Comments REVIEW OF SYSTEMS: Constitutional: No fever and No chills Cardiovascular: No orthopnea Respiratory: No cough and No dyspnea Gastrointestinal: +diarrhea Genitourinary: No frequency, No pink or red urine, No flank pain, and No dysuria Musculoskeletal: No complaints Skin: No rash Neurological: No headache PHYSICAL EXAM: There were no vitals taken for this visit. @BPTRU@ Constitutional: No acute distress, Responsive, Normal habitus, and Well-nourished Cardiovascular:No peripheral edema Regular rate and ryhthm, normal S1 and S2, no murmurs, rubs, or gallops Respiratory: Normal respiratory effort. Lungs clear bilaterally. Abdomen:Soft, non-tender, non-distended. Normal bowel sounds. No hepatosplenomegaly. No flank pain BP - standardized method Pulse 1 BP #1: 153/106 Pulse #1: 72 beats/min 2 BP #2 : 154/102 Pulse #2 : 73 beats/min 3 BP #3 : 153/103 Pulse #3 : 74 beats/min Average Average BP: 153/104 Average Pulse: 73 beats/min Orthostatic vitals Supine Sitting Standing BP cuff location BP cuff location: Left upper arm BP cuff size BP cuff size: large adult Comments for BP values First BP (right) First BP (left) DATA: Diagnostic tests reviewed for today's visit: Latest Ref Rng 05/13/2023 08/12/2023 03/03/2024 CKD LAB FLOWSHEET EGFR, All Other >=60 mL/min/1.73m 43 (L) 45 (L) 41 (L) Creatinine 0.73 - 1.22 mg/dL 2.17 (H) 2.09 (H) 2.23 (H) BUN 9 - 24 mg/dL 24 25 (H) 20 Sodium 136 - 144 mmol/L 140 138 139 Potassium 3.7 - 5.1 mmol/L 4.0 3.9 3.8 Chloride 98 - 107 mmol/L 102 101 99 CO2 22 - 30 mmol/L 27 28 28 Glucose 74 - 99 mg/dL 186 (H) 121 (H) 98 Calcium 8.5 - 10.2 mg/dL 9.3 9.7 9.7 Phosphorus 2.7 - 4.8 mg/dL 1.3 (L) 2.3 (L) 3.6 Albumin 3.9 - 4.9 g/dL 4.2 4.1 4.3 WBC 3.70 - 11.00 k/uL 6.47 7.46 HGB 13.0 - 17.0 g/dL 15.3 15.2 PLT 150 - 400 k/uL 269 312 Vitamin D25 Hydroxy 31.0 - 80.0 ng/mL 21.8 (L) PTH, Intact 15 - 65 pg/mL 54 Protein Urine Random 0 - 20 mg/dL 72 (H) 55 (H) Creatinine Urine Random 20.0 - 300.0 mg/dL 321.6 (H) 252.2 ASSESSMENT: 23 year old male who presents with proteinuric CKD Stage 3 1. CKD stage 3 in the setting of HTN with past MARGOTH. sCr at 2.23 baseline around 2.1-2.3. On Farxiga 10mg 2. HTN - on carvedilol, clonidine, doxazosin, and verapamil. Uncontrolled in office. Better controlled at home. 130s/80s. Missed night time meds last night. Stressed blood pressure control for kidney protection. 4. Vitamin D deficiency - on vitamin D supplement 5. Heme - Hgb within normal limits 6. Flank pain - left sided. Now resolved. Check renal US rule out stone PLAN: Advised low salt diet and importance of HTN control Continue home blood pressures. Call for blood pressures greater than 135 systolic Avoid NSAIDs and caution with IV contrast Renal US Urine protein/creatinine ratio today Urine culture RFP, CBC, Vitamin D25 Hydroxy, PTH, urine protein/creatinine before next visit Follow up 4 months SIGNATURE: Kasey Chakraborty PA-C, Nephrology Staff PATIENT NAME: Yehuda Slaughter DATE: March 16, 2024 TIME: 9:47 AM OFFICE NUMBER: [id number] CC: REFERRING PROVIDER: No ref. provider found PRIMARY CARE PHYSICIAN: No primary care provider on file. documented in this encounter [facility] 03-16-2024 Note HNO ID: [id number] Author: KASEY CHAKRABORTY PA-C Service: ? Author Type: Physician Events Intern Type: Progress Notes Filed: 03/16/2024 11:59 Note Text: [facility] DEPART[facility] SERVICE DATE: 03/16/2024 SERVICE TIME: 9:47 AM HPI: Mr. Slaughter is a 23 year old male who presents with with CKD stage 3 in the setting of HTN nephrosclerosis - biopsy in [place]2020. States he passed his first kidney stone about a week ago. Had burning sensation when urinating but did not actually see stone pass. No burning sensation at this time. Passed on his own. Drinks about 48 oz of water per day Blood pressure at home: averaging around 130/80 [place] 11/2023 started Farxiga 10mg everyday HTN: Known high BP 2016. Treated with anti-anxiety medicine. First BP med started in end of 2020. Hospitalized with HTN urgency, discharged on BP medications. Lisinopril/HCTZ stopped due to MARGOTH. PAST MEDICAL HISTORY: PAST MEDICAL HISTORY Diagnosis Date CKD (chronic kidney disease), stage III (HCC) HTN (hypertension) PAST SURGICAL HISTORY: No past surgical history on file. FAMILY HISTORY: No family history on file. SOCIAL HISTORY: Social History Tobacco Use Smoking status: Never Smokeless tobacco: Never MEDICATIONS: cloNIDine HCl (CATAPRES) 0.3 mg tablet Take 1 tablet by mouth three times a day. doxazosin (CARDURA) 8 mg tablet Take 1 tablet by mouth two times a day. dapagliflozin propanediol (FARXIGA) 10 mg tablet Take 1 tablet by mouth daily with breakfast. carvedilol (COREG) 12.5 mg tablet Take 1 tablet by mouth two times a day. verapamil SR (CALAN SR) 240 mg CR tablet Take 1 tablet by mouth two times a day. ergocalciferol 50,000 unit capsule (VITAMIN D2, DRISDOL) Take 1 capsule by mouth one time a week. ALLERGIES: ALLERGIES Allergen Reactions Shellfish Containin* Hives, Shortness of Breath, Swelling, Other: See Comments REVIEW OF SYSTEMS: Constitutional: No fever and No chills Cardiovascular: No orthopnea Respiratory: No cough and No dyspnea Gastrointestinal: +diarrhea Genitourinary: No frequency, No pink or red urine, No flank pain, and No dysuria Musculoskeletal: No complaints Skin: No rash Neurological: No headache PHYSICAL EXAM: There were no vitals taken for this visit. @BPTRU@ Constitutional: No acute distress, Responsive, Normal habitus, and Well-nourished Cardiovascular:No peripheral edema Regular rate and ryhthm, normal S1 and S2, no murmurs, rubs, or gallops Respiratory: Normal respiratory effort. Lungs clear bilaterally. Abdomen:Soft, non-tender, non-distended. Normal bowel sounds. No hepatosplenomegaly. No flank pain BP - standardized method Pulse 1 BP #1: 153/106 Pulse #1: 72 beats/min 2 BP #2 : 154/102 Pulse #2 : 73 beats/min 3 BP #3 : 153/103 Pulse #3 : 74 beats/min Average Average BP: 153/104 Average Pulse: 73 beats/min Orthostatic vitals Supine Sitting Standing BP cuff location BP cuff location: Left upper arm BP cuff size BP cuff size: large adult Comments for BP values First BP (right) First BP (left) DATA: Diagnostic tests reviewed for today's visit: Latest Ref Rng 05/13/2023 08/12/2023 03/03/2024 CKD LAB FLOWSHEET EGFR, All Other >=60 mL/min/1.73m? 43 (L) 45 (L) 41 (L) Creatinine 0.73 - 1.22 mg/dL 2.17 (H) 2.09 (H) 2.23 (H) BUN 9 - 24 mg/dL 24 25 (H) 20 Sodium 136 - 144 mmol/L 140 138 139 Potassium 3.7 - 5.1 mmol/L 4.0 3.9 3.8 Chloride 98 - 107 mmol/L 102 101 99 CO2 22 - 30 mmol/L 27 28 28 Glucose 74 - 99 mg/dL 186 (H) 121 (H) 98 Calcium 8.5 - 10.2 mg/dL 9.3 9.7 9.7 Phosphorus 2.7 - 4.8 mg/dL 1.3 (L) 2.3 (L) 3.6 Albumin 3.9 - 4.9 g/dL 4.2 4.1 4.3 WBC 3.70 - 11.00 k/uL 6.47 7.46 HGB 13.0 - 17.0 g/dL 15.3 15.2 PLT 150 - 400 k/uL 269 312 Vitamin D25 Hydroxy 31.0 - 80.0 ng/mL 21.8 (L) PTH, Intact 15 - 65 pg/mL 54 Protein Urine Random 0 - 20 mg/dL 72 (H) 55 (H) Creatinine Urine Random 20.0 - 300.0 mg/dL 321.6 (H) 252.2 ASSESSMENT: 23 year old male who presents with proteinuric CKD Stage 3 1. CKD stage 3 in the setting of HTN with past MARGOTH. sCr at 2.23 baseline around 2.1-2.3. On Farxiga 10mg 2. HTN - on carvedilol, clonidine, doxazosin, and verapamil. Uncontrolled in office. Better controlled at home. 130s/80s. Missed night time meds last night. Stressed blood pressure control for kidney protection. 4. Vitamin D deficiency - on vitamin D supplement 5. Heme - Hgb within normal limits 6. Flank pain - left sided. Now resolved. Check renal US rule out stone PLAN: Advised low salt diet and importance of HTN control Continue home blood pressures. Call for blood pressures greater than 135 systolic Avoid NSAIDs and caution with IV contrast Renal US Urine protein/creatinine ratio today Urine culture RFP, CBC, Vitamin D25 Hydroxy, PTH, urine protein/creatinine before next visit Follow up 4 months SIGNATURE: Kasey Chakraborty PA-C, Nephrology Staff PAT (more content not included)... [facility] 12-17-2023 Telephone encounter Note 3 month supply of caudura was sent in on 11/17/2023 No refills at this time Replied to patient [facility] 12-17-2023 Miscellaneous Notes 3 month supply of caudura was sent in on 11/17/2023 No refills at this time Replied to patient documented in this encounter [facility] 11-18-2023 Instructions Qi Sherman APRN.MEL - 11/18/2023 11:41 AM EDT Jardiance 10mg daily Let me know when you receive the medication Labs 1-2 weeks after starting it-nonfasting Qi Sherman APRN.[employer] documented in this encounter [facility] 11-18-2023 Note HNO ID: [id number] Author: QI SHERMAN APRN.CNP Service: ? Author Type: Nurse Practitioner Type: Progress Notes Filed: 11/18/2023 11:44 Note Text: Pt is a 23 yo male here for follow up of CKD stage 3 in the setting of HTN nephrosclerosis-biopsy in [place]2020. He was last seen 08/2023. Doxazosin increased. Scr trend reviewed Apr 2022: Cr 2.2. Feb 2022: Cr 2.76 Jan 2021: Cr 3, Cr 11 Dec 2020: Cr 3.4 HTN: Known high BP 2016. Treated with anti-anxiety medicine. First BP med started in end of 2020. Hospitalized with HTN urgency, discharged on BP medications. Lisinopril/HCTZ stopped due to MARGOTH. 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 He works at a [employer] PAST MEDICAL HISTORY Diagnosis Date CKD (chronic kidney disease), stage III ([facility]) HTN (hypertension) Creatinine Date Value Ref Range Status 08/12/2023 2.09 (H) 0.73 - 1.22 mg/dL Final 05/13/2023 2.17 (H) 0.73 - 1.22 mg/dL Final 12/29/2022 2.30 (H) 0.73 - 1.22 mg/dL Final Potassium Date Value Ref Range Status 08/12/2023 3.9 3.7 - 5.1 mmol/L Final 05/13/2023 4.0 3.7 - 5.1 mmol/L Final 12/29/2022 3.6 (L) 3.7 - 5.1 mmol/L Final Exam General: NAD, alert Lungs: CTA bilaterally Heart: RRR without murmur or rub Extremities: No edema BP - standardized method Pulse 1 BP #1: 125/82 Pulse #1: 75 beats/min 2 BP #2 : 124/84 Pulse #2 : 64 beats/min 3 BP #3 : 125/85 Pulse #3 : 64 beats/min Average Average BP: 125/84 Average Pulse: 68 beats/min Orthostatic vitals Supine Sitting Standing BP cuff location BP cuff location: Left upper arm BP cuff size BP cuff size: large adult Comments for BP values First BP (right) First BP (left) Impression/plan CKD stage 3-proteinuric, in the setting of HTN as noted above as well as past MARGOTH (AJITH). Baseline Scr is ~ 2.1-2.3-reviewed egfr and renal preservation as well as low Na diet and importance of BP control. He is not using NSAIDs. He is agreeable to SGLT2 inhibitor-start Jardiance (insurance preferred) 10mg every day. Labs 1-2 weeks after starting med. BAW-jrapnqbocg-wkk list updated-of note he is not using clonidine patch but still using tablets. No changes. Heme-Hgb WNL Vitamin D deficiency-on supplement-update labs Kejvpbxlfkgehhiw-iylg-ioilwa labs Plan Start Jardiance 10mg every day Labs 1-2 weeks after starting med-nonfasting F/U 3-4 months Qi hSerman APRN.[facility] 11-18-2023 History of Presen t illness Narrative Pt is a 23 yo male here for follow up of CKD stage 3 in the setting of HTN nephrosclerosis-biopsy in [place]2020. He was last seen 08/2023. Doxazosin increased. Scr trend reviewed Apr 2022: Cr 2.2. Feb 2022: Cr 2.76 Jan 2021: Cr 3, Cr 11 Dec 2020: Cr 3.4 HTN: Known high BP 2016. Treated with anti-anxiety medicine. First BP med started in end of 2020. Hospitalized with HTN urgency, discharged on BP medications. Lisinopril/HCTZ stopped due to MARGOTH. 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 PAST MEDICAL HISTORY Diagnosis Date CKD (chronic kidney disease), stage III (HCC) HTN (hypertension) Creatinine Date Value Ref Range Status 08/12/2023 2.09 (H) 0.73 - 1.22 mg/dL Final 05/13/2023 2.17 (H) 0.73 - 1.22 mg/dL Final 12/29/2022 2.30 (H) 0.73 - 1.22 mg/dL Final Potassium Date Value Ref Range Status 08/12/2023 3.9 3.7 - 5.1 mmol/L Final 05/13/2023 4.0 3.7 - 5.1 mmol/L Final 12/29/2022 3.6 (L) 3.7 - 5.1 mmol/L Final Exam General: NAD, alert Lungs: CTA bilaterally Heart: RRR without murmur or rub Extremities: No edema BP - standardized method Pulse 1 BP #1: 125/82 Pulse #1: 75 beats/min 2 BP #2 : 124/84 Pulse #2 : 64 beats/min 3 BP #3 : 125/85 Pulse #3 : 64 beats/min Average Average BP: 125/84 Average Pulse: 68 beats/min Orthostatic vitals Supine Sitting Standing BP cuff location BP cuff location: Left upper arm BP cuff size BP cuff size: large adult Comments for BP values First BP (right) First BP (left) Impression/plan CKD stage 3-proteinuric, in the setting of HTN as noted above as well as past MARGOTH (AJITH). Baseline Scr is ~ 2.1-2.3-reviewed egfr and renal preservation as well as low Na diet and importance of BP control. He is not using NSAIDs. He is agreeable to SGLT2 inhibitor-start Jardiance (insurance preferred) 10mg every day. Labs 1-2 weeks after starting med. ERY-pzsvzdresj-uyi list updated-of note he is not using clonidine patch but still using tablets. No changes. Heme-Hgb WNL Vitamin D deficiency-on supplement-update labs Jggzcynbolcuywox-cssi-jhxctq labs Plan Start Jardiance 10mg every day Labs 1-2 weeks after starting med-nonfasting F/U 3-4 months Qi Sherman APRN.[employer] documented in this encounter [facility] 08-12-2023 Note HNO ID: [id number] Author: QI SHERMAN APRN.[employer] Service: ? Author Type: Nurse Practitioner Type: Progress Notes Filed: 08/12/2023 11:41 Note Text: Pt is a 23 yo male here for follow up of CKD stage 3 in the setting of HTN nephrosclerosis-biopsy in [place]2020. He was last seen 05/2023. Doxazosin increased. Scr trend reviewed Apr 2022: Cr 2.2. Feb 2022: Cr 2.76 Jan 2021: Cr 3, Cr 11 Dec 2020: Cr 3.4 HTN: Known high BP 2016. Treated with anti-anxiety medicine. First BP med started in end of 2020. Hospitalized with HTN urgency, discharged on BP medications. Lisinopril/HCTZ stopped due to MARGOTH. 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 Home BPs as noted in last mychart message PAST MEDICAL HISTORY Diagnosis Date CKD (chronic kidney disease), stage III (HCC) HTN (hypertension) Creatinine Date Value Ref Range Status 05/13/2023 2.17 (H) 0.73 - 1.22 mg/dL Final 12/29/2022 2.30 (H) 0.73 - 1.22 mg/dL Final 08/27/2022 2.16 (H) 0.73 - 1.22 mg/dL Final Potassium Date Value Ref Range Status 05/13/2023 4.0 3.7 - 5.1 mmol/L Final 12/29/2022 3.6 (L) 3.7 - 5.1 mmol/L Final 08/27/2022 4.0 3.7 - 5.1 mmol/L Final Exam General: NAD, alert Lungs: CTA bilaterally Heart: RRR without murmur or rub Extremities: No edema BP - standardized method Pulse 1 BP #1: 146/98 Pulse #1: 62 beats/min 2 BP #2 : 146/94 Pulse #2 : 63 beats/min 3 BP #3 : 148/104 Pulse #3 : 66 beats/min Average Average BP: 147/99 Average Pulse: 64 beats/min Orthostatic vitals Supine Sitting Standing BP cuff location BP cuff location: Left upper arm BP cuff size BP cuff size: large adult Comments for BP values First BP (right) First BP (left) Impression/plan CKD stage 3-proteinuric, in the setting of HTN as noted above as well as past MARGOTH. Baseline Scr is ~ 2.1-2.3-reviewed egfr and renal preservation as well as low Na diet and importance of BP control. He is not using NSAIDs. Consider Farxiga once BP stable. TRO-bkkmelbobles-xlrftfnu doxazosin to 8mg bid. I asked he also check on cost of clonidine patch 0.3mg at pharmacy. Can possibly change to that is BP remain hard to control. Heme-Hgb WNL Vitamin D deficiency-he forgot to take vitamin D for awhile-resume vitamin D Hypophosphatemia-unsure on cause in May 2023-update labs today Plan Labs Resume vitamin D Increase doxazosin to 8mg bid Send home BPs in 1 week F/U 3 months Qi Sherman APRN.[employer] [facility] 08-12-2023 History of Presen t illness Narrative Pt is a 23 yo male here for follow up of CKD stage 3 in the setting of HTN nephrosclerosis-biopsy in 2020. He was last seen 05/2023. Doxazosin increased. Scr trend reviewed Apr 2022: Cr 2.2. Feb 2022: Cr 2.76 Jan 2021: Cr 3, Cr 11 Dec 2020: Cr 3.4 HTN: Known high BP 2016. Treated with anti-anxiety medicine. First BP med started in end of 2020. Hospitalized with HTN urgency, discharged on BP medications. Lisinopril/HCTZ stopped due to MARGOTH. 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 Home BPs as noted in last mychart message PAST MEDICAL HISTORY Diagnosis Date CKD (chronic kidney disease), stage III (HCC) HTN (hypertension) Creatinine Date Value Ref Range Status 05/13/2023 2.17 (H) 0.73 - 1.22 mg/dL Final 12/29/2022 2.30 (H) 0.73 - 1.22 mg/dL Final 08/27/2022 2.16 (H) 0.73 - 1.22 mg/dL Final Potassium Date Value Ref Range Status 05/13/2023 4.0 3.7 - 5.1 mmol/L Final 12/29/2022 3.6 (L) 3.7 - 5.1 mmol/L Final 08/27/2022 4.0 3.7 - 5.1 mmol/L Final Exam General: NAD, alert Lungs: CTA bilaterally Heart: RRR without murmur or rub Extremities: No edema BP - standardized method Pulse 1 BP #1: 146/98 Pulse #1: 62 beats/min 2 BP #2 : 146/94 Pulse #2 : 63 beats/min 3 BP #3 : 148/104 Pulse #3 : 66 beats/min Average Average BP: 147/99 Average Pulse: 64 beats/min Orthostatic vitals Supine Sitting Standing BP cuff location BP cuff location: Left upper arm BP cuff size BP cuff size: large adult Comments for BP values First BP (right) First BP (left) Impression/plan CKD stage 3-proteinuric, in the setting of HTN as noted above as well as past MARGOTH. Baseline Scr is ~ 2.1-2.3-reviewed egfr and renal preservation as well as low Na diet and importance of BP control. He is not using NSAIDs. Consider Farxiga once BP stable. QTZ-thppdidmbior-qghioaul doxazosin to 8mg bid. I asked he also check on cost of clonidine patch 0.3mg at pharmacy. Can possibly change to that is BP remain hard to control. Heme-Hgb WNL Vitamin D deficiency-he forgot to take vitamin D for awhile-resume vitamin D Hypophosphatemia-unsure on cause in May 2023-update labs today Plan Labs Resume vitamin D Increase doxazosin to 8mg bid Send home BPs in 1 week F/U 3 months Qi Sherman APRN.[employer] documented in this encounter [facility] 01-07-2023 History of Presen t illness Narrative Pt is a 22 yo male here for follow up of CKD stage 3 in the setting of HTN nephrosclerosis-biopsy in [place]2020. He was last seen 10/2022. Doxazosin added for BP control. Scr trend reviewed Apr 2022: Cr 2.2. Feb 2022: Cr 2.76 Jan 2021: Cr 3, Cr 11 Dec 2020: Cr 3.4 HTN: Known high BP 2016. Treated with anti-anxiety medicine. First BP med started in end of 2020. Hospitalized with HTN urgency, discharged on BP medications. Lisinopril/HCTZ stopped due to MARGOTH. 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 complaints Home Bps reviewed in [employer] message PAST MEDICAL HISTORY Diagnosis Date CKD (chronic kidney disease), stage III (HCC) HTN (hypertension) Creatinine Date Value Ref Range Status 12/29/2022 2.30 (H) 0.73 - 1.22 mg/dL Final 08/27/2022 2.16 (H) 0.73 - 1.22 mg/dL Final 06/26/2022 2.21 (H) 0.73 - 1.22 mg/dL Final Potassium Date Value Ref Range Status 12/29/2022 3.6 (L) 3.7 - 5.1 mmol/L Final 08/27/2022 4.0 3.7 - 5.1 mmol/L Final 06/26/2022 4.2 3.7 - 5.1 mmol/L Final Exam General: NAD, alert Lungs: CTA bilaterally Heart: RRR without murmur or rub Extremities: No edema, no asterixis BP - standardized method Pulse 1 BP #1: 157/104 Pulse #1: 64 beats/min 2 BP #2 : 156/99 Pulse #2 : 68 beats/min 3 BP #3 : 155/104 Pulse #3 : 62 beats/min Average Average BP: 156/102 Average Pulse: 65 beats/min Orthostatic vitals Supine Sitting Standing BP cuff location BP cuff location: Left upper arm BP cuff size BP cuff size: large adult Comments for BP values First BP (right) First BP (left) Impression/plan CKD stage 3-proteinuric, in the setting of HTN as noted above as well as past MARGOTH. Baseline Scr is ~ 2.2-reviewed egfr and renal preservation as well as low Na diet and importance of BP control. He is not using NSAIDs. Consider Farxiga once BP stable. NLB-pdpllqhrttya-zjcqukqx doxazosin to 2mg bid, send home BP in 1 week Heme-Hgb WNL Vitamin D deficiency-on supplement. Improving. Follow labs Plan Increase doxazosin to 2mg bid Send home BPs in 1 week F/U 3-4 months with me, [address] Ware Labs prior to next follow up Qi Sherman APRN.[employer] documented in this encounter [facility] 12-24-2022 Miscellaneous Notes CAMPBELL: 10/09/22 documented in this encounter [facility] 10-21-2022 Miscellaneous Notes Discussed with Mr Slaughter - No further issues with pulse - Swollen area in right mid abdomen. No pain. No pulsating. Eating and drinking ok. No fever and chills. Chronic dyspnea. - Agreeable to wait for appointment next week before making any changes - Reviewed criteria to present to ER with worsening symptoms etc Nikki Ware MD October 21, 2022 1:09 PM Called. No answer. Left message to call back. Refer to message documented in this encounter [facility] 08-27-2022 Instructions Qi Sherman APRN.[employer] - 08/27/2022 9:43 AM EDT Send home BPs in 1 week documented in this encounter [facility] 08-27-2022 History of Presen t illness Narrative Pt is a 22 yo male here for follow up of CKD stage 3 in the setting of HTN nephrosclerosis-biopsy in [place]2020. He was last seen by Dr Ware 07/2022. Carvedilol started Scr trend reviewed Apr 2022: Cr 2.2. Feb 2022: Cr 2.76 Jan 2021: Cr 3, Cr 11 Dec 2020: Cr 3.4 HTN: Known high BP 2016. Treated with anti-anxiety medicine. First BP med started in end 2020. Hospitalized with HTN urgency, discharged on BP medications. Lisinopril/HCTZ stopped due to MARGOTH. He took meds this morning-this is the first dose of increased coreg of 12.5mg dose. He was not able to get it. He remains on clonidine and verapamil. 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 PAST MEDICAL HISTORY Diagnosis Date CKD (chronic kidney disease), stage III (HCC) HTN (hypertension) General: Negative for weight loss, night sweats, fever, and fatigue Head/Neck: Negative for metallic or bitter taste Cardiac: Negative for syncope, palpitations, lightheadedness, dizziness, and chest pain or pressure Vascular: Negative for edema Pulmonary: Negative for dyspnea, and cough GastroIntestinal: Negative for nausea, loss of appetite, emesis, diarrhea, constipation, and abdominal pain Genito-Urinary: Negative for pink or red urine, pain with urination, groin pain, flank pain, and decreased urine Hematology: Negative for easy bruising Other: Negative for daytime somnolence Creatinine Date Value Ref Range Status 06/26/2022 2.21 (H) 0.73 - 1.22 mg/dL Final Potassium Date Value Ref Range Status 06/26/2022 4.2 3.7 - 5.1 mmol/L Final Exam BP 161/116 Pulse 70 Ht 177.8 cm (5' 10) Wt 113.4 kg (250 lb) BMI 35.87 kg/m General: NAD, alert Skin: Color, texture and turgor normal. No rashes or lesions Oropharynx: Lips, mucosa and throat normal Neck: No carotid bruits, adenopathy. Supple. No JVD Lungs: CTA bilaterally Heart: RRR without murmur or rub Abdomen: Soft, nontender. BS X 4, No organomegaly. No bruit Extremities: No edema, no asterixis BP - standardized method Pulse 1 BP #1: 161/116 Pulse #1: 72 beats/min 2 BP #2 : 159/115 Pulse #2 : 65 beats/min 3 BP #3 : 164/117 Pulse #3 : 73 beats/min Average Average BP: 161/116 Average Pulse: 70 beats/min Orthostatic vitals Supine Sitting Standing BP cuff location BP cuff location: Left upper arm BP cuff size BP cuff size: large adult Comments for BP values First BP (right) First BP (left) Impression/plan CKD stage 3-proteinuric, in the setting of HTN as noted above as well as past MARGOTH. Baseline Scr is ~ 2.2-reviewed egfr and renal preservation as well as low Na diet and importance of BP control. He is not using NSAIDs. Labs today as order and check cystatin c as ordered. Consider Farxiga once BP stable. WBE-lfqgtavsfnou-pd just increased coreg to 12.5mg this morning. Repeat 167/119-send home BPs in 1 week Heme-Hgb WNL Vitamin D deficiency-on supplement. Follow labs Plan Send home BPs in 1 week Labs F/U 2 months Qi Sherman APRN.[employer] documented in this encounter [facility] 07-10-2022 Instructions Nikki Ware MD - 07/10/2022 9:37 AM EST Adding carvedilol 6.25mg twice daily Starting Vitamin D tablet once week documented in this encounter [facility] 07-10-2022 History of Presen t illness Narrative [facility] SERVICE DATE & Time: July 10, 2022 9:25 AM Reason for visit: F/u CKD HPI: Mr. Slaughter is a 21 yo Laotian M PMHx of HTN presenting for CKD followup. Family Hx of kidney disease: None Kidney Stone history: None NSAID Use: Hx of Smoking: None Living on own. 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 Waking up at 9am to take medications. Working out 1pm. Work at 3:30pm to 1:30AM. Next pills at 5pm, 1am. Diet: Eating out a lot - cuisine Caffeine: No ; Soda: Most days Energy drinks: None Alcohol: None No illicit drugs Protein/Workout supplements: None Activity: Working out - hour of weightlifting 5/days Home BPs: Cuff at home. CKD: Apr 2022: Cr 2.2. Feb 2022: Cr 2.76 Jan 2021: Cr 3, Cr 11 Dec 2020: Cr 3.4 HTN: Known high BP 2016. Treated with anti-anxiety medicine. First BP med started in end of 2020. Hospitalized with HTN urgency, discharged on BP medications. Lisinopril/HCTZ stopped due to MARGOTH. CKD: Last year diagnosed with kidney disease. Kidney biopsy at [place] 2020- ATN. HTN nephrosclerosis. July 2022: Eating out less. He is cooking. He said he couldn't figure out how to send BPs on . He feels as though the BP meds aren't working. No acute symptoms. Clonidine 0.3mg tid, verapamil 240mg bid PAST MEDICAL HISTORY: PAST MEDICAL HISTORY Diagnosis Date CKD (chronic kidney disease), stage III (HCC) HTN (hypertension) PAST SURGICAL HISTORY: No past surgical history on file. FAMILY HISTORY: No family history on file. SOCIAL HISTORY: reports that he has never smoked. He has never used smokeless tobacco. MEDICATIONS: cloNIDine HCl (CATAPRES) 0.3 mg tablet Take 0.3 mg by mouth three times daily. verapamil (CALAN, ISOPTIN) 120 mg tablet Take 120 mg by mouth twice daily. ALLERGIES: ALLERGIES Allergen Reactions Shellfish Containin* Hives, Shortness of Breath, Swelling, Other: See Comments REVIEW OF SYSTEMS: General: Negative for weight loss, night sweats, fever, and fatigue Head/Neck: Negative for photophobia, oral ulcers/sores, metallic or bitter taste, epistaxis, and chronic nasal congestion Cardiac: Negative for syncope, palpitations, orthopnea, lightheadedness, dizziness, chest pain or pressure, and PND Vascular: Negative for raynauds, edema, and claudication Pulmonary: Negative for hemoptosis, dyspnea, and cough GastroIntestinal: Negative for nausea, loss of appetite, emesis, diarrhea, constipation, and abdominal pain Musculoskeletal: Positive for joint pain; Negative for joint swelling PHYSICAL EXAM: BP (!) 173/122 Pulse 74 Wt 113.4 kg (250 lb) BP - standardized method Pulse 1 BP #1: 181/117 Pulse #1: 69 beats/min 2 BP #2 : 170/124 Pulse #2 : 76 beats/min 3 BP #3 : 167/124 Pulse #3 : 76 beats/min Average Average BP: 173/122 Average Pulse: 74 beats/min Orthostatic vitals Supine Sitting Standing BP cuff location BP cuff location: Left upper arm BP cuff size BP cuff size: large adult Comments for BP values First BP (right) First BP (left) Constitutional: NAD Eyes: PERRL, Conjunctiva Clear Ear, Nose, and Throat:Mask Neck:Trachea midline, No JVD CV: RRR. Normal S1, S2. No murmurs, rubs, or gallops. No edema. Respiratory: Normal respiratory effort. Lungs clear bilaterally. Abdomen: Soft, non-tender, non-distended. Normal bowel sounds. Neurologic: Normal balance. Normal Gait Psychiatric: Alert and oriented x self, place, time, and setting. Normal mood/affect DATA: Diagnostic tests reviewed for today's visit: CBC: Lab Results Component Value Date WBC 7.80 06/26/2022 HB 15.7 06/26/2022 HCT 47.8 06/26/2022 PLT 323 06/26/2022 BMP: Lab Results Component Value Date NA 139 06/26/2022 K 4.2 06/26/2022 CHLOR 101 06/26/2022 GLUC 100 (H) 06/26/2022 CA 9.9 06/26/2022 RENAL FUNCTION Lab Results Component Value Date BUN 19 06/26/2022 CREAT 2.21 (H) 06/26/2022 EGFROTH 42 (L) 06/26/2022 ACID/BASE Lab Results Component Value Date CO2 28 06/26/2022 ALB 4.5 06/26/2022 ANION 10 06/26/2022 BONE/MINERAL METABOLISM Lab Results Component Value Date CA 9.9 06/26/2022 P 2.5 (L) 06/26/2022 VITD25 9.1 (L) 06/26/2022 PTH 64 06/26/2022 IRON STUDIES No results found for: FE, TIBC, TRANSFERSAT, MELIA DIABETES No results found for: HBA1C LIPIDS: No results found for: CHOL, HDL, LDL, TG, LDLHDL URINE: Urine POC Lab Results Component Value Date UGLUCPOC Negative 04/24/2022 UBILIPOC Negative 04/24/2022 UKETONPOC Negative 04/24/2022 USGPOC 1.025 04/24/2022 UHBPOC Trace-intact (A) 04/24/2022 UPHPOC 5.5 04/24/2022 UPROPOC >=300 (A) 04/24/2022 UUROPOC 0.2 04/24/2022 UNITPOC Negative 04/24/2022 UWBCPOC Negative 04/24/2022 UCOLPOC Dark yellow 04/24/2022 UCLARPOC Slightly Cloudy 04/24/2022 Lab Results Component Value Date PCRAT 0.43 (H) 06/26/2022 Received [facility] and MARGOTH notes - Diagnosed HTN at age 17 - Dec 2020 Cr 3.5. PCR 2.4GM - Feb 2021: Cr 2.75 - Feb 2022: Cr 2.76 - Apr 2022: Cr 2.23 - Kidney Biopsy Dec 2020: sclerosed. ATN. HTN nephrosclerosis. - Jon/renin: 4/3.4 = 1.2 - Negative Anca ASSESSMENT: Mr. Slaughter is a 21 yo Laotian M PMHx of HTN presenting for CKD followup. CKD Stage IIIB: Proteinuric (PCR 0.5) Kidney Biopsy Dec 2020: sclerosed. ATN. HTN nephrosclerosis. Discussed avoidance of NSAIDs Caution with IV contrast. Discuss with Nephrology Proteinuria: PCR 0.5 HTN/Volume: BP improved control. Volume status controlled. Vitamin D Def: Vitamin D 9. Anemia: Hgb at goal for CKD. Continue to monitor CBC and Fe studies as needed. Cholesterol: Goal LDL < 100 in CKD patients. PLAN: Start vitamin D supplement weekly for 12 weeks Start carvedilol 6.25mg twice daily Repeat labs with cystatin C prior to next cliniv. Follow up August SIGNATURE: Nikki Ware MD. PATIENT NAME: Yehuda Slaughter OFFICE NUMBER: [phone] PRIMARY CARE PHYSICIAN: No primary care provider on file. documented in this encounter [facility] 05-14-2022 Miscellaneous Notes 1st attempt\ vm left asking pt to call back Addended by: NIKKI WARE on: 05/14/2022 12:59 PM Modules accepted: Orders 1) Please schedule followup with me at next available appointment 2) Schedule labs prior to clinic appointment Please let me know when scheduled. Thanks. documented in this encounter [facility] 05-14-2022 History of Presen t illness Narrative Received [facility] and MARGOTH notes - Diagnosed HTN at age 17 - Dec 2020 Cr 3.5. PCR 2.4GM - Feb 2021: Cr 2.75 - Feb 2022: Cr 2.76 - Apr 2022: Cr 2.23 - Kidney Biopsy Dec 2020: 853 sclerosed. ATN. HTN nephrosclerosis. - Jon/renin: 4/3.4 = 1.2 - Negative Anca, documented in this encounter [facility] Evaluation note No assessment inform ation available [facility] Work Phone: Evaluation note Diagnosis Stage 3b chronic kidney disease (HCC)- Primary Vitamin D deficiency Unspecified vitamin D deficiency [facility] Diagnosis Stage 3b chronic kidney disease (HCC)- Primary Vitamin D deficiency Unspecified vitamin D deficiency Proteinuria, unspecified type Essential (primary) hypertension Unspecified essential hypertension [facility] Diagnosis Benign hypertension with chronic kidney disease, stage III (HCC)- Primary Benign hypertensive kidney disease with chronic kidney disease stage I through stage IV, or unspecified Stage 3b chronic kidney disease (HCC) Proteinuria, unspecified type Vitamin D deficiency Unspecified vitamin D deficiency [facility] Diagnosis Benign hypertension with chronic kidney disease, stage III (HCC)- Primary Benign hypertensive kidney disease with chronic kidney disease stage I through stage IV, or unspecified Stage 3b chronic kidney disease (HCC) Proteinuria, unspecified type [facility] Diagnosis Proteinuria, unspecified type- Primary Stage 3b chronic kidney disease (HCC) [facility] Diagnosis Stage 3b chronic kidney disease (HCC)- Primary Proteinuria, unspecified type Benign hypertension with chronic kidney disease, stage III (HCC) Benign hypertensive kidney disease with chronic kidney disease stage I through stage IV, or unspecified Vitamin D deficiency Unspecified vitamin D deficiency Hypophosphatemia Disorders of phosphorus metabolism [facility] Diagnosis Stage 3b chronic kidney disease (HCC)- Primary Proteinuria, unspecified type Benign hypertension with chronic kidney disease, stage III (HCC) Benign hypertensive kidney disease with chronic kidney disease stage I through stage IV, or unspecified Vitamin D deficiency Unspecified vitamin D deficiency Hypophosphatemia Disorders of phosphorus metabolism [facility] Diagnosis Stage 3b chronic kidney disease (HCC)- Primary Benign hypertension with chronic kidney disease, stage III (HCC) Benign hypertensive kidney disease with chronic kidney disease stage I through stage IV, or unspecified Flank pain Abdominal pain, unspecified site Proteinuria, unspecified type Vitamin D deficiency Unspecified vitamin D deficiency [facility] Diagnosis Flank pain Abdominal pain, unspecified site [facility] Kidney stones- Primary Calculus of kidney [facility] Diagnosis Renal calculus, right- Primary Calculus of kidney Vitamin D deficiency Unspecified vitamin D deficiency Essential (primary) hypertension Unspecified essential hypertension Hypertensive nephrosclerosis, stage 1 through stage 4 or unspecified chronic kidney disease [facility] Diagnosis Benign hypertension with chronic kidney disease, stage III (HCC)- Primary Benign hypertensive kidney disease with chronic kidney disease stage I through stage IV, or unspecified Stage 3b chronic kidney disease (HCC) Proteinuria, unspecified type Vitamin D deficiency Unspecified vitamin D deficiency Kidney stone Calculus of kidney [facility] Diagnostic Procedure Only (Routine) - Authorized Specialty Diagnoses / Procedures Referred By Contac t Referred To Contact US IMAGING Diagnoses Flank pain Procedures US KIDNEY/BLADDER US RETROPERITONEAL REAL TIME W/IMAGE COMPLETE Kasey Chakraborty PA-C [address] [place] [address] [place] [address] Referral ID Status Reason Start Date Expiration Date Visits Requested Visits Authorized [id number] Authorized Auto-Generat ed Referral 03/16/2024 04/15/2025 1 1 [facility] Summary Purpose Family History Relationship Condition Age at Onset Recorded Date/T alivia Not Specified Diabetes mellitus Unknown Cardiac disease Unknown Advance Directives Advance Directive Response Recorded Date/ Time Living Will No December 30 9:12pm Power of Hospice Entrance Attendant No December 30 9:12pm Advance Directive Response Recorded Date/ Time Living Will No December 30 10:12pm Power of Hospice Entrance Attendant No December 30 10:12pm Reason for Referral Specialty Diagnoses / Procedures Referred By Contac t Referred To Contact Qi Sherman APRN.[employer] [address] [place] [address] Referral ID Status Reason Start Date Expiration Date V isits Requested Visits Authorized [id number] Pending Review 1 1 Specialty Diagnoses / Procedures Referred By Contac t Referred To Contact Urology Diagnoses Kidney stones Procedures CONSULT TO UROLOGY OFFICE/OUTPATIENT [facility] 60 MINUTES Qi Sherman APRN.[employer] [address] [place] [address] Referral ID Status Reason Start Date Expiration Date Visits Requested Visits Authorized [id number] Authorized PCP Requested Referral 4 03/22/2025 1 1 Specialty Diagnoses / Procedures Referred By Contac t Referred To Contact Urology Diagnoses Renal calculus, right Procedures CONSULT TO UROLOGY OFFICE/OUTPATIENT NEW HIGH MDM 60 MINUTES Kip Clark APRN.MEL, [address] [place] [address] Referral ID Status Reason Start Date Expiration Date Visits Requested Visits Authorized [id number] Authorized PCP Requested Referral 4 05/01/2025 1 1 Specialty Diagnoses / Procedures Referred By Contac t Referred To Contact XR IMAGING Diagnoses Renal calculus, right Procedures XR ABDOMEN 1V SUPINE RADIOLOGIC EXAM ABDOMEN 1 VIEW Kip Clark APRN.MEL, [address] [place] [address] [place] [address] Referral ID Status Reason Start Date Expiration Date Visits Requested Visits Authorized [id number] Authorized Auto-Generat ed Referral 4 05/31/2025 1 1 Additional Source Comments (unrecognized sect ion and content) No Status Records FoundNo Status Records FoundNo Status Records FoundNo Status Records Found INFORMATION SOURCE (unrecogn ized section and content) DATE CREATED AUTHOR 05/06/2018 [facility] DATE CREATED AUTHOR AUTHOR'S ORGANIZ ATION 08/09/2022 [facility] DATE CREATED AUTHOR AUTHOR'S ORGANIZ ATION 03/18/2024 [facility] DATE CREATED AUTHOR AUTHOR'S ORGANIZ ATION 07/23/2024 [facility] Goals (unrecognized section and content) Goals may be documented in a n alternate sectionGoals may be documented in an alternate section Source Comments (unrecognize d section and content) In the event this informatio n is protected by the Federal Confidentiality of Alcohol and Drug Abuse Patient Records regulations: The Federal rules restrict any use of the information to criminally investigate or prosecute any alcohol or drug abuse patient.[facility] the event this information is protected by the Federal Confidentiality of Alcohol and Drug Abuse Patient Records regulations: The Federal rules restrict any use of the information to criminally investigate or prosecute any alcohol or drug abuse patient.[facility] the event this information is protected by the Federal Confidentiality of Alcohol and Drug Abuse Patient Records regulations: The Federal rules restrict any use of the information to criminally investigate or prosecute any alcohol or drug abuse patient.[facility] the event this information is protected by the Federal Confidentiality of Alcohol and Drug Abuse Patient Records regulations: The Federal rules restrict any use of the information to criminally investigate or prosecute any alcohol or drug abuse patient.[facility] the event this information is protected by the Federal Confidentiality of Alcohol and Drug Abuse Patient Records regulations: The Federal rules restrict any use of the information to criminally investigate or prosecute any alcohol or drug abuse patient.[facility] the event this information is protected by the Federal Confidentiality of Alcohol and Drug Abuse Patient Records regulations: The Federal rules restrict any use of the information to criminally investigate or prosecute any alcohol or drug abuse patient.[facility] the event this information is protected by the Federal Confidentiality of Alcohol and Drug Abuse Patient Records regulations: The Federal rules restrict any use of the information to criminally investigate or prosecute any alcohol or drug abuse patient.[facility] the event this information is protected by the Federal Confidentiality of Alcohol and Drug Abuse Patient Records regulations: The Federal rules restrict any use of the information to criminally investigate or prosecute any alcohol or drug abuse patient.[facility] the event this information is protected by the Federal Confidentiality of Alcohol and Drug Abuse Patient Records regulations: The Federal rules restrict any use of the information to criminally investigate or prosecute any alcohol or drug abuse patient.[facility] the event this information is protected by the Federal Confidentiality of Alcohol and Drug Abuse Patient Records regulations: The Federal rules restrict any use of the information to criminally investigate or prosecute any alcohol or drug abuse patient.[facility] the event this information is protected by the Federal Confidentiality of Alcohol and Drug Abuse Patient Records regulations: The Federal rules restrict any use of the information to criminally investigate or prosecute any alcohol or drug abuse patient.[facility] the event this information is protected by the Federal Confidentiality of Alcohol and Drug Abuse Patient Records regulations: The Federal rules restrict any use of the information to criminally investigate or prosecute any alcohol or drug abuse patient.[facility] the event this information is protected by the Federal Confidentiality of Alcohol and Drug Abuse Patient Records regulations: The Federal rules restrict any use of the information to criminally investigate or prosecute any alcohol or drug abuse patient.[facility] the event this information is protected by the Federal Confidentiality of Alcohol and Drug Abuse Patient Records regulations: The Federal rules restrict any use of the information to criminally investigate or prosecute any alcohol or drug abuse patient.[facility] the event this information is protected by the Federal Confidentiality of Alcohol and Drug Abuse Patient Records regulations: The Federal rules restrict any use of the information to criminally investigate or prosecute any alcohol or drug abuse patient.[facility] the event this information is protected by the Federal Confidentiality of Alcohol and Drug Abuse Patient Records regulations: The Federal rules restrict any use of the information to criminally investigate or prosecute any alcohol or drug abuse patient.[facility] the event this information is protected by the Federal Confidentiality of Alcohol and Drug Abuse Patient Records regulations: The Federal rules restrict any use of the information to criminally investigate or prosecute any alcohol or drug abuse patient.[facility] the event this information is protected by the Federal Confidentiality of Alcohol and Drug Abuse Patient Records regulations: The Federal rules restrict any use of the information to criminally investigate or prosecute any alcohol or drug abuse patient.[facility] the event this information is protected by the Federal Confidentiality of Alcohol and Drug Abuse Patient Records regulations: The Federal rules restrict any use of the information to criminally investigate or prosecute any alcohol or drug abuse patient.[facility] TroyIn the event this information is protected by the Federal Confidentiality of Alcohol and Drug Abuse Patient Records regulations: The Federal rules restrict any use of the information to criminally investigate or prosecute any alcohol or drug abuse patient.[facility] TroyIn the event this information is protected by the Federal Confidentiality of Alcohol and Drug Abuse Patient Records regulations: The Federal rules restrict any use of the information to criminally investigate or prosecute any alcohol or drug abuse patient.[facility] TroyIn the event this information is protected by the Federal Confidentiality of Alcohol and Drug Abuse Patient Records regulations: The Federal rules restrict any use of the information to criminally investigate or prosecute any alcohol or drug abuse patient.[facility] TroyIn the event this information is protected by the Federal Confidentiality of Alcohol and Drug Abuse Patient Records regulations: The Federal rules restrict any use of the information to criminally investigate or prosecute any alcohol or drug abuse patient.[facility] TroyIn the event this information is protected by the Federal Confidentiality of Alcohol and Drug Abuse Patient Records regulations: The Federal rules restrict any use of the information to criminally investigate or prosecute any alcohol or drug abuse patient.[facility] TroyIn the event this information is protected by the Federal Confidentiality of Alcohol and Drug Abuse Patient Records regulations: The Federal rules restrict any use of the information to criminally investigate or prosecute any alcohol or drug abuse patient.[facility] TroyIn the event this information is protected by the Federal Confidentiality of Alcohol and Drug Abuse Patient Records regulations: The Federal rules restrict any use of the information to criminally investigate or prosecute any alcohol or drug abuse patient.[facility] TroyIn the event this information is protected by the Federal Confidentiality of Alcohol and Drug Abuse Patient Records regulations: The Federal rules restrict any use of the information to criminally investigate or prosecute any alcohol or drug abuse patient.[facility] TroyIn the event this information is protected by the Federal Confidentiality of Alcohol and Drug Abuse Patient Records regulations: The Federal rules restrict any use of the information to criminally investigate or prosecute any alcohol or drug abuse patient.[facility] TroyIn the event this information is protected by the Federal Confidentiality of Alcohol and Drug Abuse Patient Records regulations: The Federal rules restrict any use of the information to criminally investigate or prosecute any alcohol or drug abuse patient.[facility] TroyIn the event this information is protected by the Federal Confidentiality of Alcohol and Drug Abuse Patient Records regulations: The Federal rules restrict any use of the information to criminally investigate or prosecute any alcohol or drug abuse patient.[facility] TroyIn the event this information is protected by the Federal Confidentiality of Alcohol and Drug Abuse Patient Records regulations: The Federal rules restrict any use of the information to criminally investigate or prosecute any alcohol or drug abuse patient.[facility] TroyIn the event this information is protected by the Federal Confidentiality of Alcohol and Drug Abuse Patient Records regulations: The Federal rules restrict any use of the information to criminally investigate or prosecute any alcohol or drug abuse patient.[facility] TroyIn the event this information is protected by the Federal Confidentiality of Alcohol and Drug Abuse Patient Records regulations: The Federal rules restrict any use of the information to criminally investigate or prosecute any alcohol or drug abuse patient.[facility] TroyIn the event this information is protected by the Federal Confidentiality of Alcohol and Drug Abuse Patient Records regulations: The Federal rules restrict any use of the information to criminally investigate or prosecute any alcohol or drug abuse patient.[facility] TroyIn the event this information is protected by the Federal Confidentiality of Alcohol and Drug Abuse Patient Records regulations: The Federal rules restrict any use of the information to criminally investigate or prosecute any alcohol or drug abuse patient.[facility] TroyIn the event this information is protected by the Federal Confidentiality of Alcohol and Drug Abuse Patient Records regulations: The Federal rules restrict any use of the information to criminally investigate or prosecute any alcohol or drug abuse patient.[facility] TroyIn the event this information is protected by the Federal Confidentiality of Alcohol and Drug Abuse Patient Records regulations: The Federal rules restrict any use of the information to criminally investigate or prosecute any alcohol or drug abuse patient.[facility] TroyIn the event this information is protected by the Federal Confidentiality of Alcohol and Drug Abuse Patient Records regulations: The Federal rules restrict any use of the information to criminally investigate or prosecute any alcohol or drug abuse patient.[facility] TroyIn the event this information is protected by the Federal Confidentiality of Alcohol and Drug Abuse Patient Records regulations: The Federal rules restrict any use of the information to criminally investigate or prosecute any alcohol or drug abuse patient.[facility] TroyIn the event this information is protected by the Federal Confidentiality of Alcohol and Drug Abuse Patient Records regulations: The Federal rules restrict any use of the information to criminally investigate or prosecute any alcohol or drug abuse patient.[facility] TroyIn the event this information is protected by the Federal Confidentiality of Alcohol and Drug Abuse Patient Records regulations: The Federal rules restrict any use of the information to criminally investigate or prosecute any alcohol or drug abuse patient.[facility] TroyIn the event this information is protected by the Federal Confidentiality of Alcohol and Drug Abuse Patient Records regulations: The Federal rules restrict any use of the information to criminally investigate or prosecute any alcohol or drug abuse patient.[facility] TroyIn the event this information is protected by the Federal Confidentiality of Alcohol and Drug Abuse Patient Records regulations: The Federal rules restrict any use of the information to criminally investigate or prosecute any alcohol or drug abuse patient.[facility] TroyIn the event this information is protected by the Federal Confidentiality of Alcohol and Drug Abuse Patient Records regulations: The Federal rules restrict any use of the information to criminally investigate or prosecute any alcohol or drug abuse patient.[facility] TroyIn the event this information is protected by the Federal Confidentiality of Alcohol and Drug Abuse Patient Records regulations: The Federal rules restrict any use of the information to criminally investigate or prosecute any alcohol or drug abuse patient.[facility] TroyIn the event this information is protected by the Federal Confidentiality of Alcohol and Drug Abuse Patient Records regulations: The Federal rules restrict any use of the information to criminally investigate or prosecute any alcohol or drug abuse patient.[facility] TroyIn the event this information is protected by the Federal Confidentiality of Alcohol and Drug Abuse Patient Records regulations: The Federal rules restrict any use of the information to criminally investigate or prosecute any alcohol or drug abuse patient.[facility] TroyIn the event this information is protected by the Federal Confidentiality of Alcohol and Drug Abuse Patient Records regulations: The Federal rules restrict any use of the information to criminally investigate or prosecute any alcohol or drug abuse patient.[facility] TroyIn the event this information is protected by the Federal Confidentiality of Alcohol and Drug Abuse Patient Records regulations: The Federal rules restrict any use of the information to criminally investigate or prosecute any alcohol or drug abuse patient.[facility] TroyIn the event this information is protected by the Federal Confidentiality of Alcohol and Drug Abuse Patient Records regulations: The Federal rules restrict any use of the information to criminally investigate or prosecute any alcohol or drug abuse patient.[facility] TroyIn the event this information is protected by the Federal Confidentiality of Alcohol and Drug Abuse Patient Records regulations: The Federal rules restrict any use of the information to criminally investigate or prosecute any alcohol or drug abuse patient.[facility] TroyIn the event this information is protected by the Federal Confidentiality of Alcohol and Drug Abuse Patient Records regulations: The Federal rules restrict any use of the information to criminally investigate or prosecute any alcohol or drug abuse patient.[facility] TroyIn the event this information is protected by the Federal Confidentiality of Alcohol and Drug Abuse Patient Records regulations: The Federal rules restrict any use of the information to criminally investigate or prosecute any alcohol or drug abuse patient.[facility] Reason for Visit (unrecogniz ed section and content) Reason Comments Received Outside Medical Records Reason Comments Appointment Reason Comments Follow Up Reason Onset Date Comments Refill Request 08/08/2022 Reason Comments Establish Care Reason Onset Date Comments Refill Request 09/09/2022 Reason Onset Date Comments Refill Request 09/21/2022 Reason Onset Date Comments Refill Request 10/22/2022 Reason Onset Date Comments Refill Request 11/13/2022 Reason Onset Date Comments Refill Request 12/24/2022 Reason Comments Refill Request Reason Onset Date Comments Refill Request 01/12/2023 Reason Onset Date Comments Refill Request 01/26/2023 Reason Onset Date Comments Refill Request 03/06/2023 Reason Onset Date Comments Refill Request 03/15/2023 Reason Onset Date Comments Refill Request 03/29/2023 Reason Onset Date Comments Refill Request 04/05/2023 Reason Onset Date Comments Refill Request 04/14/2023 Reason Onset Date Comments Refill Request 04/19/2023 Reason Onset Date Comments Refill Request 07/29/2023 Reason Onset Date Comments Refill Request 10/27/2023 Reason Onset Date Comments Refill Request 11/10/2023 Reason Onset Date Comments Refill Request 11/17/2023 Reason Comments Follow Up Reason Onset Date Comments Refill Request 12/17/2023 Reason Onset Date Comments Refill Request 01/15/2024 Reason Onset Date Comments Refill Request 02/08/2024 Reason Comments Radiology US Specialty Diagnoses / Procedures Referred By Contac t Referred To Contact US IMAGING Diagnoses Flank pain Procedures US KIDNEY/BLADDER US RETROPERITONEAL REAL TIME W/IMAGE COMPLETE Kasey Chakraborty PA-C [address] [place] [address] [place] [address] Referral ID Status Reason Start Date Expiration Date V isits Requested Visits Authorized [id number] Closed Auto-Generate d Referral 03/16/2024 04/15/2025 1 1 Reason Onset Date Comments Refill Request 04/23/2024 Reason Comments Flank Pain Specialty Diagnoses / Procedures Referred By Contac t Referred To Contact Urology Diagnoses Kidney stones Procedures CONSULT TO UROLOGY OFFICE/OUTPATIENT [facility] 60 MINUTES Qi Sherman, PLACEMENT SPECIALIST.[employer] [address] [place] [address] Referral ID Status Reason Start Date Expiration Date V isits Requested Visits Authorized [id number] Closed PCP Requested Referral 03/22/2024 03/22/2025 1 1 Reason Onset Date Comments Refill Request 05/16/2024 Reason Comments Patient Update HTN Reason Comments Care Coordination HTN Reason Onset Date Comments Refill Request 2024 Reason Onset Date Comments Refill Request 09/13/2024 Care Teams (unrecognized sec tion and content) Team Status: Active Member Role Status Dates Dr. Katrin Catalan MD Family Provider Active [facility] Primary Care Provider A ctive Team Status: Inactive Member Role Status Dates [facility] Primary C are Provider, Attending Provider, Referring Provider Active Dr. Bravo Eyre , MD Other Provider Active FOR RECORDS PERTAINING TO PATIENTS WHO ARE OR HAVE BEEN ENROLLED IN A CHEMICAL DEPENDENCY/SUBSTANCEABUSE PROGRAM, SOME INFORMATION MAY BE OMITTED. This clinical summary was aggregated from multiple sources. Caution should be exercised in using it in the provision of clinical care. This summary normalizes information from multiple sources, and as a consequence, information in this document may materially change the coding, format and clinical context of patient data. In addition, data may be omitted in some cases. CLINICAL DECISIONS SHOULD BE BASED ON THE PRIMARY CLINICAL RECORDS. [email or web address] [facility]. provides no warranty or guarantee of the accuracy or completeness of information in this document.
[2024-12-09 07:39] VITALS: BP 156/88; PULSE 78; RESP 18; TEMP 36.6; O2SAT 99
== END 2024-12-09 07:40 | disposition home or self-care (01) ==
LOC: ED 06:53
PROVIDERS: Emergency Provider Emergency Medicine; Visit Provider Emergency Medicine
DX: B34.9 Viral infection, unspecified (principal); N18.30 Chronic kidney disease, stage 3 unspecified; I12.9 Hypertensive chronic kidney disease with stage 1 through stage 4 chronic kidney disease, or unspecified chronic kidney disease; E66.9 Obesity, unspecified; Z68.38 Body mass index [BMI] 38.0-38.9, adult; Z79.899 Other long term (current) drug therapy; Z86.16 Personal history of COVID-19
CPT/HCPCS: 87631; 99282